=== PATIENT | male | born 1965 | race Caucasian/White ===

== ENCOUNTER 2022-10-14 14:49 | Outpatient (OUT) | payer BC, SELFPAY ==
[2022-10-14 15:30] LABS: Basophils Absolute Auto 0.1 10^3/uL (0.0-0.1); Basophils Percent Auto 0.7 % (0.2-2.0); Eosinophils Absolute Auto 0.2 10^3/uL (0.0-0.7); Eosinophils Percent Auto 2.5 % (0.9-7.0); Hematocrit 44.9 % (42.0-54.0); Hemoglobin 15.1 g/dL (14.0-18.0); Immature Granulocytes Abs Auto 0.06 10^3/uL (0.00-0.03); Immature Granulocytes Pct Auto 0.7 % (0.0-0.5); Lymphocytes Absolute Auto 2.4 10^3/uL (1.2-3.8); Lymphocytes Percent Auto 28.3 % (20.5-60.0); Mean Corpuscular HGB Conc 33.6 g/dL (29.9-35.2); Mean Corpuscular Hemoglobin 31.3 pg (25.9-34.0); Mean Platelet Volume 10.1 fL (9.5-13.5); Monocytes Absolute Auto 1.1 10^3/uL (0.3-0.8); Monocytes Percent Auto 12.3 % (1.7-12.0); Neutrophils Absolute Auto 4.8 10^3/uL (1.4-6.5); Neutrophils Percent Auto 55.5 % (43.0-75.0); Platelet Count 246 10^3/uL (150-450); Red Blood Count 4.83 10^6/uL (4.70-6.10); Red Cell Distribution Width 12.1 % (11.0-15.0); White Blood Count 8.6 10^3/uL (4.0-11.0)
[2022-10-14 15:42] LABS: Estimated Average Glucose 120 mg/dL; Glycohemoglobin A1C 5.8 % (4.5-6.2)
[2022-10-14 16:20] LABS: Alanine Aminotransferase 30 U/L (16-63); Albumin Globulin Ratio 0.9; Albumin Level 3.7 g/dL (3.4-5.0); Alkaline Phosphatase 66 U/L (46-116); Anion Gap 13.9; Aspartate Amino Transferase 14 U/L (15-37); BUN Creatinine Ratio 11.8; Bilirubin Total 0.6 mg/dL (0.2-1.0); Calcium 9.1 mg/dL (8.5-10.1); Carbon Dioxide 29.8 mmol/L (21.0-32.0); Chloride 103 mmol/L (98-107); Chol HDL Ratio 2.2; Cholesterol 162 mg/dL (<=200); Estimated GFR (African America >60 (>=60); Estimated GFR (Non-African Ame >60 (>=60); Globulin 4.1 g/dL; Glucose 93 mg/dL (74-106); HDL Cholesterol 75 mg/dL (40-60); Potassium 4.7 mmol/L (3.5-5.1); Sodium 142 mmol/L (136-145); Total Protein 7.8 g/dL (6.4-8.2); Triglycerides 72 mg/dL (<=150); VLDL CHOLESTEROL 14.4 mg/dL
[2022-10-22 06:09] LABS: Free Testosterone(Direct) 5.1 pg/mL (7.2-24.0); Testosterone 301 ng/dL (264-916)
== END 2022-10-14 14:50 | disposition home or self-care (01) ==
LOC: LAB 14:54
PROVIDERS: PCP Internal Medicine; Visit Provider Internal Medicine
DX: N52.9 Male erectile dysfunction, unspecified (principal); I10 Essential (primary) hypertension; Z13.220 Encounter for screening for lipoid disorders; Z13.1 Encounter for screening for diabetes mellitus
CPT/HCPCS: 36415; 80053; 80061; 83036; 84402; 84403; 85025

== ENCOUNTER 2022-11-10 14:29 | Outpatient (OUT) | payer BC, SELFPAY ==
[2022-11-10 15:19] LABS: Thyroid Stimulating Hormone 1.028 uIU/mL (0.358-3.740)
[2022-11-11 04:07] LABS: FSH 20.7 mIU/mL (1.5-12.4); Luteinizing Hormone(LH) 16.7 mIU/mL (1.7-8.6); Prolactin 14.6 ng/mL (4.0-15.2)
[2022-11-17 00:06] LABS: Free Testosterone(Direct) 4.9 pg/mL (7.2-24.0); Testosterone 273 ng/dL (264-916)
== END 2022-11-10 14:30 | disposition home or self-care (01) ==
LOC: LAB 14:30
PROVIDERS: PCP Internal Medicine; Visit Provider Internal Medicine
DX: E66.9 Obesity, unspecified (principal); N52.9 Male erectile dysfunction, unspecified; R79.89 Other specified abnormal findings of blood chemistry
CPT/HCPCS: 36415; 83001; 83002; 84146; 84402; 84403; 84443

== ENCOUNTER 2023-04-18 14:30 | Outpatient (OUT) | payer BC, SELFPAY ==
[2023-04-18 15:15] LABS: Creatinine Urine Random 128.26 mg/dL (20.00-300.00); Protein Creatinine Ratio Urine 0.08; Total Protein Urine Random 9.8 mg/dL (<=11.9)
[2023-04-18 15:38] LABS: Basophils Absolute Auto 0.1 10^3/uL (0.0-0.1); Basophils Percent Auto 0.8 % (0.2-2.0); Eosinophils Absolute Auto 0.2 10^3/uL (0.0-0.7); Eosinophils Percent Auto 2.4 % (0.9-7.0); Hematocrit 46.8 % (42.0-54.0); Hemoglobin 15.2 g/dL (14.0-18.0); Immature Granulocytes Abs Auto 0.06 10^3/uL (0.00-0.03); Immature Granulocytes Pct Auto 0.7 % (0.0-0.5); Lymphocytes Absolute Auto 2.6 10^3/uL (1.2-3.8); Mean Corpuscular HGB Conc 32.5 g/dL (29.9-35.2); Mean Corpuscular Hemoglobin 31.2 pg (25.9-34.0); Mean Corpuscular Volume 96.1 fL (80.0-94.0); Mean Platelet Volume 10.6 fL (9.5-13.5); Monocytes Absolute Auto 1.1 10^3/uL (0.3-0.8); Monocytes Percent Auto 12.5 % (1.7-12.0); Neutrophils Absolute Auto 4.9 10^3/uL (1.4-6.5); Neutrophils Percent Auto 54.6 % (43.0-75.0); Platelet Count 232 10^3/uL (150-450); Red Blood Count 4.87 10^6/uL (4.70-6.10); White Blood Count 8.9 10^3/uL (4.0-11.0)
[2023-04-18 15:59] LABS: Alanine Aminotransferase 23 U/L (16-63); Albumin Globulin Ratio 0.8; Albumin Level 3.3 g/dL (3.4-5.0); Alkaline Phosphatase 68 U/L (46-116); Anion Gap 12.6; Aspartate Amino Transferase 14 U/L (15-37); BUN Creatinine Ratio 10.8; Bilirubin Total 0.7 mg/dL (0.2-1.0); Calcium 8.9 mg/dL (8.5-10.1); Carbon Dioxide 26.5 mmol/L (21.0-32.0); Chloride 102 mmol/L (98-107); Estimated GFR (African America >60 (>=60); Estimated GFR (Non-African Ame >60 (>=60); Globulin 4.2 g/dL; Glucose 95 mg/dL (74-106); Potassium 4.1 mmol/L (3.5-5.1); Sodium 137 mmol/L (136-145); Total Protein 7.5 g/dL (6.4-8.2)
== END 2023-04-18 14:31 | disposition home or self-care (01) ==
LOC: LAB 14:31
PROVIDERS: PCP Internal Medicine; Visit Provider Internal Medicine
DX: R09.89 Other specified symptoms and signs involving the circulatory and respiratory systems (principal); I10 Essential (primary) hypertension; E29.1 Testicular hypofunction; R60.0 Localized edema
CPT/HCPCS: 36415; 80053; 82570; 83880; 84156; 85025

== ENCOUNTER 2023-05-04 13:55 | Outpatient (OUT) | payer BC, SELFPAY ==
--- NOTE | 2023-05-04 14:00 | CA_ITS ---
Patient Name: JOSE RODRIGUEZ MR#: [id number] : 1965 Exam Date: 05/04/2023 Ordering Doctor: Shaikh Sai Ang . ECHOCARDIOGRAM REPORT PROCEDURE: CA ECHO DOPPLER COMPLETE INDICATIONS: Shortness of breath, lower extremity edema, hypertension, smoker COMPARISON: None. DESCRIPTION: COMPLETE ECHOCARDIOGRAM Real-time transthoracic echocardiography with 2D, M-mode, spectral and color flow Doppler performed. QUALITY: Technical quality was good. 69 , 270 , BSA 2.35, BP 168/82 LEFT VENTRICLE: Normal chamber size. Thickened septal wall. LV EF: Global left ventricular systolic function is normal; visually estimated ejection fraction is 55-60%. Unable to assess regional wall motion abnormalities. DIASTOLIC: Normal diastolic function. ATRIAL SEPTUM: Inadequately seen. LEFT ATRIUM: Normal chamber size. RIGHT ATRIUM: Normal chamber size. RIGHT VENTRICLE: Normal chamber size. Normal right ventricular systolic function. TRICUSPID VALVE: Normal mobility and thickness. No stenosis with trivial regurgitation. No evidence of pulmonary hypertension. RVSP 33 mmHg MITRAL VALVE: Normal mobility and thickness. No evidence of mitral valve stenosis. Mild mitral annular calcification. Trivial mitral regurgitation. AORTIC VALVE: Normal trileaflet appearance. No visible sclerosis. Normal leaflet mobility. No evidence of aortic valve stenosis. No aortic regurgitation. AORTIC ROOT: Normal diameter and appearance. PULMONIC VALVE: Normal thickness and mobility. No stenosis. No regurgitation. PERICARDIUM: Anterior free space; trivial effusion versus fat pad. IVC: Collapses with inspirations. IVC is normal in size. CONCLUSION: 1. Global left ventricular systolic function is normal; visually estimated ejection fraction is 55-60% 2. Normal right ventricular size and systolic function 3. Normal diastolic function 4. No significant valvular abnormalities 5. Anterior free space; trivial effusion versus Adult Echocardiography Procedure Report Left Ventricle LVEDD (3.7 - 5.6 cm): 4.34 cm LVESD (2.2 - 4.0 cm): 3.55 cm LVIVS thickness (0.6 - 1.2 cm): 1.24 cm LVPW thickness (0.5 - 1.0 cm): 0.96 cm E - e': 7.17 LVOT Max Gradient: 2.53 mm[Hg] LVOT Area (cm2): 0.80 m/s Peak Velocity (LVOT): 0.80 m/s Mean Velocity (LVOT): 0.60 m/s LVOT Diameter 2.17 cm Left Atrium LA Volume Index (2D A2C): 28.63 ml/m2 Left Atrium Systolic Dimension: 3.52 cm Mitral Valve MV E to A Ratio: 1.04 Mitral Valve A-Wave Peak Velocity: 0.83 m/s Mitral Valve E-Wave Peak Velocity: 0.86 m/s Right Ventricle Aorta AO Root Diam: 3.60 cm Aortic Valve AoV Area (Peak Rodger): 2.43 cm2, 2.43 cm2 AoV Area (VTI): 2.96 cm2, 2.96 cm2 Peak Velocity(Antegrade Flow): 1.20 m/s Peak Gradient(Antegrade Flow): 5.78 mm[Hg] Mean Velocity(Antegrade Flow): 0.85 m/s Mean Gradient(Antegrade Flow): 3.23 mm[Hg] Velocity Time Integral: 25.58 cm Tricuspid Valve Peak Velocity (Regurgitant Flow): 2.75 m/s Pulmonic Valve Mean Gradient: 3.13 mm[Hg], 2.46 mm[Hg] Mean Velocity: 0.84 m/s, 0.74 m/s Peak Velocity: 1.23 m/s Peak Gradient: 6.10 mm[Hg], 4.76 mm[Hg], 4.09 mm[Hg] Right Atrium Right Atrium Systolic Pressure: 53.92 ml, 53.92 ml Dictated by: Lior Castillo M.D. on 05/04/2023 at 16:08 Approved by: Lior Castillo M.D. on 05/04/2023 at 16:11
--- OUTSIDE RECORDS SUMMARY | 2023-05-04 15:12 | XMS_ITS | CCD ---
Author Organization [facility] Care Team Providers Care Transportation Security Officer Name Role Phone ADRIAN CRENSHAW Unavailable Unavailable GRECIA, DR AMANDA Ayoub Consulting Unavailable TIFF, DR MAIA Whittington Admitting Unavailable SCOTT, DR SANTIAGO Primary Care Unavailable TIFF, DR MAIA Whittington Attending Unavailable TIFF, DR MAIA Whittington Consulting Unavailable Lukasz, John Consulting Unavailable SCOTT, DR SANTIAGO Attending Unavailable SCOTT, DR SANTIAGO Consulting Unavailable SCOTT, DR SANTIAGO Primary Care Unavailable SCOTT, DR SANTIAGO Admitting Unavailable ZIEBER, DR CHERIE Ayoub Consulting Unavailable SCOTT, DR SANTIAGO Consulting Unavailable SCOTT, DR SANTIAGO Primary Care Unavailable SCOTT, DR SANTIAGO Admitting Unavailable HOUSE, DR SANTIAGO Attending Unavailable GRECHOBINNA, JOHANN JOVEL Consulting Unavailable PAY, DR JOHANSEN Admitting Unavailable HOUSE, DR SANTIAGO Primary Care Unavailable PAY, DR JOHANSEN Attending Unavailable AHMED, GINNY Consulting Unavailable DO Elie Thompson Attending Provider [phone] DO William Warner Primary Care Provider [phone] William Wanrer Primary Care Unavailable Elie Thompson Attending Unavailable Elie Thompson Admitting Unavailable Elie Thompson Admitting Unavailable Elie Thompson Attending Unavailable Chavez, William Primary Care Unavailable Elie Thompson Admitting Unavailable Elie Thompson Attending Unavailable Chavez, William Primary Care Unavailable SHAIKH SILVA Attending Unavailable SHAIKH SILVA Attending Unavailable SHAIKH SILVA Attending Unavailable Medications Current Medications Medication Drug Class(es) Dates Sig (Normalized) Sig (Original) hydroCHLOROthiazide 25 mg / lisinopril 20 mg oral tablet (2 sources) Thiazide Diuretic, Angiotensin Converting Enzyme Inhibitor Start: 12-10-2021 take 1 tablet by mouth once daily Lisinopril-Hydr ochlorothiazide Active 1 TAB PO Daily December 09, 2021 11:00pm traMADol hydrochloride 50 mg oral tablet (1 source) Opioid Agonist Start: 12-20-2021 take 50 mg by mouth every six hours Tramadol Active 50 MG PO Q6H 30 7 December 20, 2021 12:00am Problems Active Problems Problem Classification Problem Date Documented Da te Episodic/Chronic Abdominal hernia (2 sources) Umbilical hernia; Translations: [Umbilical hernia without obstruction or gangrene] Onset: 12-20-2021 12-20-2021 Episodic Abdominal pain (4 sources) Unspecified abdominal pain; Translations: [UNSPECIFIED ABDOMINAL PAIN] Onset: 10-20-2020 Episodic Alcohol-related disorders (1 source) Alcohol abuse, uncomplicated; Translations: [ALCOHOL ABUSE UNCOMPLICATED] Onset: 11-04-2020 Chronic Essential hypertension (5 sources) Essential (primary) hypertension; Translations: [ESSENTIAL PRIMARY HYPERTENSION] Onset: 01-21-2020 Chronic Other aftercare (1 source) Other watermelon harvesting supervisor (current) drug therapy; Translations: [OTH ASSISTED CURRENT DRUG THERAPY] Onset: 11-04-2020 Episodic Other gastrointestinal disorders (1 source) Constipation, unspecified; Translations: [CONSTIPATION UNSPECIFIED] Onset: 11-04-2020 Episodic Other nutritional; endocrine; and metabolic disorders (1 source) Obesity, unspecified; Translations: [OBESITY UNSPECIFIED] Onset: 11-04-2020 Chronic Other nutritional; endocrine; and metabolic disorders (1 source) Body mass index (BMI) 37.0-37.9, adult; Translations: [BODY MASS INDEX BMI 37.0-37.9 ADULT] Onset: 11-04-2020 Chronic Pancreatic disorders (not diabetes) (4 sources) Other chronic pancreatitis; Translations: [OTHER CHRONIC PANCREATITIS] Onset: 11-27-2020 Chronic Pancreatic disorders (not diabetes) (2 sources) Alcohol induced acute pancreatitis without necrosis or infection; Translations: [Acute pancreatitis without necrosis or infection, unspecified] Onset: 10-20-2020 Episodic Substance-related disorders (1 source) Nicotine dependence, cigarettes, uncomplicated; Translations: [NICOTINE DEPEND CIGARETTES UNCOMP] Onset: 11-04-2020 Chronic Unclassified (1 source) OLIGOSPERMIA / OLIGOSPERMIA() Onset: 04-24-2017 Unclassified (1 source) CONTACT W/AND (SUSP) EXPOS COVID-19; Translations: [CONTACT W/AND (SUSP) EXPOS COVID-19] Onset: 11-04-2020 Unclassified (1 source) Encounter for preprocedural laboratory examination; Translations: [Encounter for preprocedural laboratory examination] Onset: 12-16-2021 Past or Other Problems Problem Classification Problem Date Documented Da joan Episodic/Chronic Other male genital disorders (1 source) Oligospermia; Translations: [OLIGOSPERMIA] Onset: 04-24-2017 Episodic Results Test Name Value Interpretation Reference Range Facility [facility] 12-20-2021 L - -------- Specimen: [id number] Received: 12/20/21 Status: NEHA Holbrook Num: [id number] Spec Type: Surgical Subm Dr: Elie Thompson DO Tissues: A Hernia Sac (HERNIA CONTENTS) Procedures: Gustavo BARRON/Medardo L2 -------- Age/ Patient Sex Location Account Attending Physician -------- Yariel Molina 56/M [place] [id number] Elie Thompson DO -------- SPEC NUM: [id number] RECD: 12/20/21 STATUS: NEHA AMY NUM: [id number] KERRY: 12/20/21- [facility] DR: Elie Thompson DO ENTERED: 12/20/[address]: SPEC TYPE: Surgical DEPT: S ORDERED: HE, Gross/Micro L2 ORDERED: HE, Gross/Micro L2 Pathological Diagnosis Umbilical hernia, repair: Benign fibroadipose tissue. Clinical Information Umbilical hernia Gross Description Received in formalin labeled with the patient's name, number and hernia contents is a 5.0 x 4.8 x 2.0 cm aggregate of yellow-cassidy, lobular and cassidy-pink, fibromembranous tissue. The cut surface of the yellow, lobular tissue is yellow-cassidy, lobular.. Label Printer sections are submitted in one cassette labeled A1. Microscopic Description One glass slide with H E stained material has been examined. The microscopic findings support the above pathologic diagnosis. CPT Codes 28132 -------- -------- Specimen: [id number] Received: 12/20/21 Status: NEHA Holbrook Num: [id number] Spec Type: Surgical Subm Dr: Elie Thompson,DO Tissues: A Hernia Sac (HERNIA CONTENTS) Procedures: HE, Gross/Micro L2 -------- Patient: Yariel Molina [id number] (Continued) -------- Signed (signature on file) Ursula Vicente MD 12/21/21 1416 [facility] COVID-19 Antigenon 2 COVID-19 Antigen Healthcare Worker?: N Reference Range: Negative Negative results, from patients with symptom onset beyond five days, should be treated as presumptive and confirmation with a molecular assay, if necessary, for patient management, may be performed. Negative results do not rule out COVID-19 and should not be used as the sole basis for treatment or patient management decisions, including infection control decisions. Negative results should be considered in the context of a patient's recent exposures, history and the presence of clinical signs and symptoms consistent with COVID-19. The Valeria SARS Antigen LONG does not differentiate between SARS-CoV and SARS-CoV-2. This test was developed and its performance characteristic determined by [employer] and validated at [facility]. This test has not been FDA cleared or approved. This test has been authorized by FDA under an Emergency Use Authorization (EUA). This test has been validated in accordance with the FDA's Guidance Document (Policy for Diagnostics Testing in Laboratories Certified to Perform High Complexity Testing under CLIA prior to Emergency Use Authorization for Coronavirus Disease-2019 during the Public Health Emergency) issued on May 09, 2019. This test is only authorized for the duration of time the declaration that circumstances exist justifying the authorization of the emergency use of in vitro diagnostic tests for detection of SARS-CoV-2 virus and/or diagnosis of COVID-19 infection under section 564(b)(1) of the Act, 21 U.S.C. 360bbb-3(b)(1), unless the authorization is terminated or revoked sooner. SARS-CoV+SARS-CoV-2 (COVID-19) Ag [Presence] in Respiratory specimen by Rapid immunoassay Negative for SARS Antigen by LONG PERFORMED BY: [place] [address] PATHOLOGIST BASEBOARD HEATING INSTALLER WILBER HUNTLEY M.D. Normal [facility] Comment on above: Performed By: #### C OVID-19 VALERIA, SOFIANEG #### [facility] [address] [place] [address] COVID-19 SOFIAOrdered By: Johann Thompson on 12-16-2021 SARS-CoV+SARS-CoV-2 (COVID-19) Ag IA.rapid Ql (Resp) Negative Negative [facility] Comment on above: This is a duplicate Valeria SARS Antigen (LONG) result to be used for statistical tracking purpose only. No Panel InformationOrdered By: Elie Thompson on 12-16-2021 SARS Antigen (LFIA) [facility] Valeria Ag Negativeon 12-17-19 22 Valeria Ag Negative Negative Normal Negative [facility] Comment on above: Result Comment: This is a duplicate Valeria SARS Antigen (LONG) result to be used for statistical tracking purpose only. PERFORMED BY: [place] [address] PATHOLOGIST BASEBOARD HEATING INSTALLER WILBER HUNTLEY M.D. Performed By: #### C OVID-19 VALERIA, SOFIANEG #### [facility] [address] [place] [id number] [facility] Basic Metabolic Panelon 11-0 Anion gap [Moles/Vol] 15.3 mmol/L High 6.0-15.0 [facility] Comment on above: Performed By: #### B MP #### [facility] [address] Calcium [Mass/Vol] 9.3 mg/dL Normal 8.2-10.2 [facility] Comment on above: Result Comment: PERF ORMED BY: [place] [address] PATHOLOGIST BASEBOARD HEATING INSTALLER WILBER HUNTLEY M.D. Performed By: #### B MP #### [address] Chloride [Moles/Vol] 99 mmol/L Normal 95-114 [facility] Comment on above: Performed By: #### B MP #### [address] CO2 [Moles/Vol] 23.8 mmol/L Normal 22.0-30.0 [facility] Comment on above: Performed By: #### B MP #### [address] Creatinine [Mass/Vol] 0.80 mg/dL Normal 0.64-1.27 [facility] Comment on above: Performed By: #### B MP #### [address] Estimated GFR ( Ellie > 60 [facility] Comment on above: Result Comment: GFR estimated reference range: According to KDOQI guidelines, <60 ml/min/1.73m2 is sufficient to diagnose a patient with chronic kidney disease. Performed By: #### B MP #### [facility] [address] [place] [address] [place] Estimated GFR (Non- Am > 60 [facility] Comment on above: Performed By: #### B MP #### [facility] [address] Glucose [Mass/Vol] 95 mg/dL Normal 70-100 [facility] Comment on above: Result Comment: [place] Glucose Reference Range is dependent on time and content of last meal. Glucose of more than 200 mg/dL in a nonstressed, ambulatory subject supports the diagnosis of Diabetes Mellitus. ADA recommended reference range Performed By: #### B MP #### [facility] [address] Potassium [Moles/Vol] 4.1 mmol/L Normal 3.5-5.1 [facility] Comment on above: Performed By: #### B MP #### [facility] [address] Sodium [Moles/Vol] 134 mmol/L Low 136-146 [facility] Comment on above: Performed By: #### B MP #### [address] Urea nitrogen [Mass/Vol] 15 mg/dL Normal 9-23 [facility] Comment on above: Performed By: #### B MP #### [address] Basophils Auto (Bld) [#/Vol] Ordered By: Elie Thompson on 12-10-2021 Basophils (Bld) [#/Vol] 0.1 10*3/uL 0.0-0.2 [facility] Basophils/100 WBC Auto (Bld) Ordered By: Elie Thompson on 12-10-2021 Basophils/100 WBC (Bld) 1.0 % . [facility] Complete Blood Count Auto Di ffon 12-10-2021 Basophils (Bld) [#/Vol] 0.1 10*3/uL Normal 0.0-0.2 [facility] Comment on above: Result Comment: PERF ORMED BY: [place] [address] PATHOLOGIST BASEBOARD HEATING INSTALLER WILBER HUNTLEY M.D. Performed By: #### C BC #### [address] Basophils/100 WBC (Bld) 1.0 % Normal . [facility] Comment on above: Performed By: #### C BC #### [address] Eosinophils (Bld) [#/Vol] 0.2 10*3/uL Normal 0.0-0.45 [facility] Comment on above: Performed By: #### C BC #### [address] Eosinophils/100 WBC (Bld) 2.2 % Normal . [facility] Comment on above: Performed By: #### C BC #### [address] Erythrocyte distribution width (RBC) [Ratio] 12.6 % Normal 12.0-14.8 [facility] Comment on above: Performed By: #### C BC #### [address] Hematocrit (Bld) [Volume fraction] 44.5 % Normal 38.8-50.0 [facility] Comment on above: Performed By: #### C BC #### [address] Hemoglobin (Bld) [Mass/Vol] 15.2 g/dL Normal 13.0-17.0 [facility] Comment on above: Performed By: #### C BC #### [address] Lymphocytes (Bld) [#/Vol] 3.0 10*3/uL Normal 1.00-4.8 [facility] Comment on above: Performed By: #### C BC #### [address] Lymphocytes/100 WBC (Bld) 29.3 % Normal . [facility] Comment on above: Performed By: #### C BC #### [address] MCH (RBC) [Entitic mass] 31.4 pg Normal 27.5-35.2 [facility] Comment on above: Performed By: #### C BC #### [address] MCV (RBC) [Entitic vol] 92.0 fL Normal 83.5-101 [facility] Comment on above: Performed By: #### C BC #### [facility] [address] Mean Corpuscular HGB Conc 34.1 g/dL Normal 32.5-35.6 [facility] Comment on above: Performed By: #### C BC #### [facility] [address] [place] [address] [place] Monocytes (Bld) [#/Vol] 1.1 10*3/uL High 0.0-0.8 [facility] Comment on above: Performed By: #### C BC #### [facility] [address] [place] [address] [place] Monocytes/100 WBC (Bld) 10.6 % Normal . [facility] Comment on above: Performed By: #### C BC #### [facility] [address] Neutrophils (Bld) [#/Vol] 5.7 10*3/uL Normal 1.8-7.7 [facility] Comment on above: Performed By: #### C BC #### [facility] [address] [place] [address] [place] Neutrophils/100 WBC (Bld) 56.9 % Normal . [facility] Comment on above: Performed By: #### C BC #### [facility] [address] [place] [address] [place] Nucleated RBC/100 WBC (Bld) [Ratio] 0.0 % Normal 0-0.5 [facility] Comment on above: Performed By: #### C BC #### [facility] [address] [place] [address] [place] Platelet mean volume (Bld) [Entitic vol] 8.7 fL Normal 6.6-10.1 [facility] Comment on above: Performed By: #### C BC #### [facility] [address] [place] [address] [place] Platelets (Bld) [#/Vol] 265 10*3/uL Normal 150-450 [facility] Comment on above: Performed By: #### C BC #### [facility] [address] RBC (Bld) [#/Vol] 4.83 10*6/uL Normal 3.90-5.60 [facility] Comment on above: Performed By: #### C BC #### [facility] [address] WBC (Bld) [#/Vol] 10.1 10*3/uL Normal 4.5-11.0 [facility] Comment on above: Performed By: #### C BC #### [facility] [address] Creatinine and Glomerular fi ltration rate.predicted panel (S/P/Bld)Ordered By: Elie Thompson on 12-10-2021 Creatinine [Mass/Vol] 0.80 mg/dL 0.64-1.27 [facility] ECG 12 lead ECGon 12-10-2021 ECG 12 lead ECG [facility] Main [place] [address] [place] [address] Electrocardiograph Report Signed Patient: Yariel Molina MR#: [id number] : 1965 Acct:[id number] Age/Sex: 56 / M ADM Date: 12/10/21 Loc: Room: Type: [facility] Attending Dr: Elie Thompson DO Ordering Provider: Elie Thompson DO Date of Service: 12/10/2105/28/833 ECG/ECG 12 lead ECG: OR 12/20 Copies to: Test Reason : Blood Pressure : / mmHG Vent. Rate : 089 BPM Atrial Rate : 089 BPM P-R Int : 162 ms QRS Dur : 086 ms QT Int : 354 ms P-R-T Axes : 026 022 016 degrees QTc Int : 430 ms Normal sinus rhythm Normal ECG No previous ECGs available Confirmed by NASH SANDOVAL FACMARKOS Christopher ([id number]) on 12/10/2021 2:47:23 PM Referred By: CORONA Electronically Signed By:MARKOS BASS MD FACC Transcribed By: MUS Signed By Markos Bass MD, FACC 12/10/21 1447 Normal [facility] Eosinophils Auto (Bld) [#/Vo l]Ordered By: Elie Thompson on 12-10-2021 Eosinophils (Bld) [#/Vol] 0.2 10*3/uL 0.0-0.45 [facility] Eosinophils/100 WBC Auto (Bl d)Ordered By: Elie Thompson on 12-10-2021 Eosinophils/100 WBC (Bld) 2.2 % . [facility] Erythrocyte distribution wid th Auto (RBC) [Ratio]Ordered By: Elie Thompson on 12-10-2021 Erythrocyte distribution width (RBC) [Ratio] 12.6 % 12.0-14.8 [facility] Estimated glomerular filtrat ion rate (GFR) non- AmericanOrdered By: Elie Thompson on 12-10-2021 GFR/1.73 sq M.predicted among non-blacks MDRD (S/P/Bld) [Vol rate/Area] > 60 mL/Min [facility] Hematocrit Auto (Bld) [Volum e fraction]Ordered By: Elie Thompson on 12-10-2021 Hematocrit (Bld) [Volume fraction] 44.5 % 38.8-50.0 [facility] Hemoglobin [Mass/volume] in BloodOrdered By: Elie Thompson on 12-10-2021 Hemoglobin (Bld) [Mass/Vol] 15.2 g/dL 13.0-17.0 [facility] Laboratory - Hematology and Cell countsOrdered By: Elie Thompson on 12-10-2021 Nucleated RBC/100 WBC (Bld) [Ratio] 0.0 % 0-0.5 [facility] Leukocytes [#/volume] in Blo od by Automated countOrdered By: Elie Thompson on 12-10-2021 WBC (Bld) [#/Vol] 10.1 10*3/uL 4.5-11.0 [facility] Lymphocytes Auto (Bld) [#/Vo l]Ordered By: lEie Thompson on 12-10-2021 Lymphocytes (Bld) [#/Vol] 3.0 10*3/uL 1.00-4.8 [facility] Lymphocytes/100 WBC Auto (Bl d)Ordered By: Elie Thompson on 12-10-2021 Lymphocytes/100 WBC (Bld) 29.3 % . [facility] MCH Auto (RBC) [Entitic mass ]Ordered By: Elie Thompson on 12-10-2021 MCH (RBC) [Entitic mass] 31.4 pg 27.5-35.2 [facility] MCHC Auto (RBC) [Mass/Vol]Or dered By: Elie Thompson on 12-10-2021 MCHC (RBC) [Mass/Vol] 34.1 g/dL 32.5-35.6 [facility] MCV Auto (RBC) [Entitic vol] Ordered By: Elie Thompson on 12-10-2021 MCV (RBC) [Entitic vol] 92.0 fL 83.5-101 [facility] Monocytes Auto (Bld) [#/Vol] Ordered By: Elie Thompson on 12-10-2021 Monocytes (Bld) [#/Vol] 1.1 10*3/uL 0.0-0.8 [facility] Monocytes/100 WBC Auto (Bld) Ordered By: Elie Thompson on 12-10-2021 Monocytes/100 WBC (Bld) 10.6 % . [facility] Neutrophils Auto (Bld) [#/Vo l]Ordered By: Elie Thompson on 12-10-2021 Neutrophils (Bld) [#/Vol] 5.7 10*3/uL 1.8-7.7 [facility] Neutrophils/100 WBC Auto (Bl d)Ordered By: Elie Thompson on 12-10-2021 Neutrophils/100 WBC (Bld) 56.9 % . [facility] No Panel InformationOrdered By: Elie Thompson on 12-10-2021 Estimated GFR () > 60 mL/Min [facility] Comment on above: GFR estimated refere nce range: According to KDOQI guidelines, <60 ml/min/1.73m2 is sufficient to diagnose a patient with chronic kidney disease. Pharmacy Creatinine Clearance (Chem N/A [facility] Platelet mean volume Auto (B ld) [Entitic vol]Ordered By: Elie Thmopson on 12-10-2021 Platelet mean volume (Bld) [Entitic vol] 8.7 fL 6.6-10.1 [facility] Platelets Auto (Bld) [#/Vol] Ordered By: Elie Thompson on 12-10-2021 Platelets (Bld) [#/Vol] 265 10*3/uL 150-450 [facility] RBC Auto (Bld) [#/Vol]Ordere d By: Elie Thompson on 12-10-2021 RBC (Bld) [#/Vol] 4.83 10*6/uL 3.90-5.60 [facility] Serum or plasma anion gap de terminationOrdered By: Elie Thompson on 12-10-2021 Anion gap [Moles/Vol] 15.3 mmol/L 6.0-15.0 [facility] Serum or plasma calcium lyla urement (mass/volume)Ordered By: Elie Thompson on 12-10-2021 Calcium [Mass/Vol] 9.3 mg/dL 8.2-10.2 [facility] Serum or plasma chloride john surement (moles/volume)Ordered By: Elie Thompson on 12-10-2021 Chloride [Moles/Vol] 99 mmol/L 95-114 [facility] Serum or plasma glucose lyla urement (mass/volume)Ordered By: Elie Thompson on 12-10-2021 Glucose [Mass/Vol] 95 mg/dL 70-100 [facility] Comment on above: ADA recommended refe rence rangeRandom Glucose Reference Range is dependent on time and content of last meal. Glucose of more than 200 mg/dL in a nonstressed, ambulatory subject supports the diagnosis of Diabetes Mellitus. Serum or plasma potassium me asurement (moles/volume)Ordered By: Elie Thompson on 12-10-2021 Potassium [Moles/Vol] 4.1 mmol/L 3.5-5.1 [facility] Serum or plasma sodium measu rement (moles/volume)Ordered By: Elie Thompson on 12-10-2021 Sodium [Moles/Vol] 134 mmol/L 136-146 [facility] Serum or plasma total carbon dioxide measurement (moles/volume)Ordered By: Elie Thompson on 12-10-2021 CO2 [Moles/Vol] 23.8 mmol/L 22.0-30.0 [facility] Serum or plasma urea nitroge n measurement (mass/volume)Ordered By: Elie Thompson on 12-10-2021 Urea nitrogen [Mass/Vol] 15 mg/dL 10-29 [facility] NM HEPATOBILIARY SCAN W EFon 11-27-2020 NM HEPATOBILIARY SCAN W EF EXAMINATION: NM HEPATOBILIARY SCAN W EF HISTORY: Abdominal pain , chronic pancreatitis COMPARISON: No relevant comparison available. TECHNIQUE: Radionuclide hepatobiliary imaging was performed after intravenous injection of 5.0 mCi Tc-99m THERESA derivative with sequential acquisitions every 1 minute for one hour. Hepatobiliary imaging with gallbladder ejection fraction analysis was then performed with sequential imaging every 1 minute for 60 minutes following ingestion of 8 ounces Ensure Plus. FINDINGS: LIVER: Normal, prompt and uniform radiotracer uptake and clearing. BILIARY DUCTS: Normal radioisotopic biliary excretion. GALLBLADDER: Normal with no evidence of cystic duct obstruction. INTESTINE: Normal with no evidence of common biliary ductal obstruction. EJECTION FRACTION: 40 % within 60 minutes. (Normal EF > 38%). OTHER: Negative. IMPRESSION: 1. Normal (but borderline) ejection fraction. Electronically authenticated by: CHERIE RIGGS Date: 2020-11-27 10:46 Normal [facility] AMYLASEon 10-28-2020 Amylase [Catalytic activity/Vol] 42 U/L Normal 31-110 [facility] Comment on above: Performed By: #### C MP, JAMES, LIPA #### [facility] [address] [address] [address] Nathalia Banda CBC AUTO DIFFon 10-28-2020 BASO # 0.1 103/ul Normal 0.0-0.1 [facility] Comment on above: Performed By: #### C BC #### [facility] [address] [address] [address] Nathalia Banda Basophils/100 WBC (Bld) 0.7 % Normal 0.2-2.0 [facility] Comment on above: Performed By: #### C BC #### [facility] [address] [place], [place] [address] Dr. Nathalia Banda EO # 0.4 103/ul Normal 0.0-0.7 [facility] Comment on above: Performed By: #### C BC #### [facility] [address] [address] [address] Nathalia Banda Eosinophils/100 WBC (Bld) 3.6 % Normal 0.9-7.0 [facility] Comment on above: Performed By: #### C BC #### [facility] [address] [place] [address] Dr. Nathalia Banda Erythrocyte distribution width (RBC) [Ratio] 11.3 % Normal 11.0-15.0 [facility] Comment on above: Performed By: #### C BC #### [facility] [address] [place] [address] Dr. Nathalia Banda Hematocrit (Bld) [Volume fraction] 39.0 % Critically low 42.0-54.0 [facility] Comment on above: Performed By: #### C BC #### [place] [facility] [address] [place] [address] Dr. Nathalia Banda Hemoglobin (Bld) [Mass/Vol] 13.3 g/dL Critically low 14.0-18.0 [facility] Comment on above: Performed By: #### C BC #### [facility] [address] [place] [address] Dr. Nathalia Banda IG # 0.07 10e3/ul Critically high 0.00-0.03 [facility] Comment on above: Performed By: #### C BC #### [facility] [address] [place] [address] Dr. Nathalia Banda IG % 0.7 % Critically high 0.0-0.5 [facility] Comment on above: Performed By: #### C BC #### [facility] [address] [place] [address] Dr. Nathalia Banda LYMPH # 2.2 103/ul Normal 1.2-3.8 [facility] Comment on above: Performed By: #### C BC #### [facility] [address] [place] [address] Dr. Nathalia Banda Lymphocytes/100 WBC (Bld) 23.1 % Normal 20.5-60.0 [facility] Comment on above: Performed By: #### C BC #### [facility] [address] [place] [address] Dr. Nathalia Banda MANUAL DIFF REQ NO Normal [facility] Comment on above: Performed By: #### C BC #### [facility] [address] [place] [address] Dr. Nathalia Banda MCH (RBC) [Entitic mass] 30.6 pg Normal 25.9-34.0 [facility] Comment on above: Performed By: #### C BC #### [facility] [address] [place] [address] Dr. Nathalia Banda MCHC (RBC) [Mass/Vol] 34.1 g/dL Normal 29.9-35.2 [facility] Comment on above: Performed By: #### C BC #### [facility] [address] [place] [address] Dr. Nathalia Banda MCV (RBC) [Entitic vol] 89.7 fL Normal 80.0-94.0 [facility] Comment on above: Performed By: #### C BC #### [facility] [address] [place] [address] Dr. Nathalia Banda MONO # 1.2 103/ul Critically high 0.3-0.8 [facility] Comment on above: Performed By: #### C BC #### [facility] [address] [place] [address] Dr. Nathalia Banda Monocytes/100 WBC (Bld) 12.5 % Critically high 1.7-12. 0 [facility] Comment on above: Performed By: #### C BC #### [facility] [address] [place] [address] Dr. Nathalia Banda NEUT # 5.7 103/ul Normal 1.4-6.5 [facility] Comment on above: Performed By: #### C BC #### [facility] [address] [place] [address] Dr. Nathalia Banda Neutrophils/100 WBC (Bld) 59.4 % Normal 43.0-75.0 [facility] Comment on above: Performed By: #### C BC #### [facility] [address] [address] [address] Nathalia Banda Platelet mean volume (Bld) [Entitic vol] 10.2 fL Normal 9.5-13.5 [facility] Comment on above: Performed By: #### C BC #### [facility] [address] [place] [address] Dr. Nathalia Banda PLT 288 103/ul Normal 150-450 [facility] Comment on above: Performed By: #### C BC #### [facility] [address] [place] [address] Dr. Nathalia Banda RBC 4.35 106/ul Critically low 4.70-6.10 [facility] Comment on above: Performed By: #### C BC #### [facility] [address] [place] [address] Dr. Nathalia Banda WBC 9.6 103/ul Normal 4.0-11.0 [facility] Comment on above: Performed By: #### C BC #### [facility] [address] [place] [address] Dr. Nathalia Banda LIPASEon 10-28-2020 Lipase [Catalytic activity/Vol] 356.0 U/L Critically high 23.0-300.0 [facility] Comment on above: Performed By: #### C MP, JAMES, LIPA #### [facility] [address] [place] [address] Dr. Nathalia Banda PROF 14(COMP METB)on 021 Albumin [Mass/Vol] 2.4 g/dL Critically low 3.5-5.0 [facility] Comment on above: Performed By: #### L IPA, CMP #### [facility] [address] [place] [address] Edin Perez Albumin/Globulin [Mass ratio] 0.5 {ratio} Normal [facility] Comment on above: Performed By: #### L IPA, CMP #### [facility] [address] [place] [address] Edin Ana ALP [Catalytic activity/Vol] 71 U/L Normal 38-126 [facility] Comment on above: Performed By: #### L IPA, CMP #### [facility] [address] [place], [place] [id number] Edin Ana ALT [Catalytic activity/Vol] 17 U/L Critically low 21-72 [facility] Comment on above: Performed By: #### L IPA, CMP #### [facility] [address] [id number] Edin Ana Anion gap [Moles/Vol] 12.2 mmol/L Normal [facility] Comment on above: Performed By: #### L IPA, CMP #### [facility] [address] [address] Edin Ana AST [Catalytic activity/Vol] 9 U/L Critically low 17-59 [facility] Comment on above: Performed By: #### L IPA, CMP #### [facility] [address] [address] Edin Ana Bilirubin [Mass/Vol] 0.4 mg/dL Normal 0.2-1.3 [facility] Comment on above: Performed By: #### L IPA, CMP #### [facility] [address] [place], [place] [phone] Edin Ana Calcium [Mass/Vol] 8.7 mg/dL Normal 8.4-10.2 [facility] Comment on above: Performed By: #### L IPA, CMP #### [facility] [address] [place] [address] Edin Ana Chloride [Moles/Vol] 102 mmol/L Normal 98-107 [facility] Comment on above: Performed By: #### L IPA, CMP #### [facility] [address] [id number] Edin Ana CO2 [Moles/Vol] 24.7 mmol/L Normal 22.0-30.[address] [facility] Comment on above: Performed By: #### L IPA, CMP #### [facility] [address] [id number] Edin Ana Creatinine [Mass/Vol] 0.77 mg/dL Normal 0.66-1.25 [facility] Comment on above: Performed By: #### L IPA, CMP #### [facility] [address] [place], [place] [address] Edin Ana EGFR-AF ROMANIAN >60 Normal >=[address] [facility] Comment on above: Performed By: #### L IPA, CMP #### [facility] [address] [id number] Edin Ana EGFR-NON AF ROMANIAN >60 Normal >=60 [facility] Comment on above: Performed By: #### L IPA, CMP #### [facility] [address] [id number] Edin Ana Globulin (S) [Mass/Vol] 4.4 g/dL Normal [facility] Comment on above: Performed By: #### L IPA, CMP #### [facility] [address] [id number] Edin Ana Glucose [Mass/Vol] 94 mg/dL Normal 74-106 [facility] Comment on above: Performed By: #### L IPA, CMP #### [facility] [address] [id number] Edin Ana Potassium [Moles/Vol] 3.9 mmol/L Normal 3.4-5.0 [facility] Comment on above: Performed By: #### L IPA, CMP #### [facility] [address] [id number] Edin Ana Protein [Mass/Vol] 6.8 g/dL Normal 6.1-8.2 [facility] Comment on above: Performed By: #### L IPA, CMP #### [facility] [address] [id number] Edin Ana Sodium [Moles/Vol] 135 mmol/L Critically low 137-145 [facility] Comment on above: Performed By: #### L IPA, CMP #### [facility] [address] [id number] Edin Ana Urea nitrogen [Mass/Vol] 7.0 mg/dL Critically low 9.0-20. 0 [facility] Comment on above: Performed By: #### L IPA, CMP #### [facility] [address] [place] [address] Edin Perez Urea nitrogen/Creatinine [Mass ratio] 9.1 mg/mg Normal [facility] Comment on above: Performed By: #### L IPA, CMP #### [facility] [address] [place] [address] Edin Perez AMYLASEon 10-27-2020 Amylase [Catalytic activity/Vol] 65 U/L Normal 31-110 [facility] Comment on above: Performed By: #### L IPA, CMP #### [facility] [address] [place], [place] [id number] Edin Perez CBC AUTO DIFFon 10-27-2020 BASO # 0.1 103/ul Normal 0.0-0.1 [facility] Comment on above: Performed By: #### C BC #### [facility] [address] [place] [address] Dr. Nathalia Banda Basophils/100 WBC (Bld) 0.7 % Normal 0.2-2.0 [facility] Comment on above: Performed By: #### C BC #### [facility] [address] [place] [address] Dr. Nathalia Banda EO # 0.3 103/ul Normal 0.0-0.7 [facility] Comment on above: Performed By: #### C BC #### [facility] [address] [place] [address] Dr. Nathalia Banda Eosinophils/100 WBC (Bld) 3.2 % Normal 0.9-7.0 [facility] Comment on above: Performed By: #### C BC #### [facility] [address] [place] [address] Dr. Nathalia Banda Erythrocyte distribution width (RBC) [Ratio] 11.4 % Normal 11.0-15.0 [facility] Comment on above: Performed By: #### C BC #### [facility] [address] [place] [address] Dr. Nathalia Banda Hematocrit (Bld) [Volume fraction] 41.0 % Critically low 42.0-54.0 [facility] Comment on above: Performed By: #### C BC #### [facility] [address] [place] [address] Dr. Nathalia Banda Hemoglobin (Bld) [Mass/Vol] 13.7 g/dL Critically low 14.0-18.0 [facility] Comment on above: Performed By: #### C BC #### [facility] [address] [place] [address] Dr. Nathalia Banda IG # 0.07 10e3/ul Critically high 0.00-0.03 [facility] Comment on above: Performed By: #### C BC #### [facility] [address] [place] [address] Dr. Nathalia Banda IG % 0.7 % Critically high 0.0-0.5 [facility] Comment on above: Performed By: #### C BC #### [facility] [address] [place] [address] Dr. Nathalia Banda LYMPH # 2.3 103/ul Normal 1.2-3.8 [facility] Comment on above: Performed By: #### C BC #### [facility] [address] [place] [address] Dr. Nathalia Banda Lymphocytes/100 WBC (Bld) 21.5 % Normal 20.5-60.0 [facility] Comment on above: Performed By: #### C BC #### [facility] [address] [place] [address] Dr. Nathalia Banda MANUAL DIFF REQ NO Normal [facility] Comment on above: Performed By: #### C BC #### [facility] [address] [place] [address] Dr. Nathalia Banda MCH (RBC) [Entitic mass] 30.7 pg Normal 25.9-34.0 [facility] Comment on above: Performed By: #### C BC #### [facility] [address] [place] [address] Dr. Nathalia Banda MCHC (RBC) [Mass/Vol] 33.4 g/dL Normal 29.9-35.2 [facility] Comment on above: Performed By: #### C BC #### [facility] [address] [address] [address] Nathalia Banda MCV (RBC) [Entitic vol] 91.9 fL Normal 80.0-94.0 [facility] Comment on above: Performed By: #### C BC #### [facility] [address] [address] [address] Nathalia Banda MONO # 1.5 103/ul Critically high 0.3-0.8 [facility] Comment on above: Performed By: #### C BC #### [facility] [address] [address] [address] Nathalia Banda Monocytes/100 WBC (Bld) 14.2 % Critically high 1.7-12. 0 [facility] Comment on above: Performed By: #### C BC #### [facility] [address] [address] [address] Nathalia Banda NEUT # 6.4 103/ul Normal 1.4-6.5 [facility] Comment on above: Performed By: #### C BC #### [facility] [address] [address] [address] Nathalia Banda Neutrophils/100 WBC (Bld) 59.7 % Normal 43.0-75.0 [facility] Comment on above: Performed By: #### C BC #### [facility] [address] [address] [address] Nathalia Banda Platelet mean volume (Bld) [Entitic vol] 9.9 fL Normal 9.5-13.5 [facility] Comment on above: Performed By: #### C BC #### [facility] [address] [address] [address] Nathalia Banda PLT 288 103/ul Normal 150-450 [facility] Comment on above: Performed By: #### C BC #### [facility] [address] [address] [address] Nathalia Banda RBC 4.46 106/ul Critically low 4.70-6.10 [facility] Comment on above: Performed By: #### C BC #### [facility] [address] [place] [address] Dr. Nathalia Banda WBC 10.6 103/ul Normal 4.0-11.0 [facility] Comment on above: Performed By: #### C BC #### [facility] [address] [place] [address] Dr. Nathalia Banda LIPASEon 10-27-2020 Lipase [Catalytic activity/Vol] 600.0 U/L Critically high 23.0-300.0 [facility] Comment on above: Performed By: #### L IPA, CMP #### [facility] [address] [place], [place] [phone] Edin Perez PROF 14(COMP METB)on 021 Albumin [Mass/Vol] 2.7 g/dL Critically low 3.5-5.0 [facility] Comment on above: Performed By: #### L IPA, CMP #### [facility] [address] [place], [place] [phone] Edin Perez Albumin/Globulin [Mass ratio] 0.6 {ratio} Normal [facility] Comment on above: Performed By: #### L IPA, CMP #### [facility] [address] [place] [address] Edin Ana ALP [Catalytic activity/Vol] 75 U/L Normal 38-126 [facility] Comment on above: Performed By: #### L IPA, CMP #### [facility] [address] [place] [address] Edin Perez ALT [Catalytic activity/Vol] 20 U/L Critically low 21-72 [facility] Comment on above: Performed By: #### L IPA, CMP #### [facility] [address] [place], [place] [phone] Edin Ana Anion gap [Moles/Vol] 14.4 mmol/L Normal [facility] Comment on above: Performed By: #### L IPA, CMP #### [facility] [address] [place], [place] [phone] Edin Perez AST [Catalytic activity/Vol] 10 U/L Critically low 17-59 [facility] Comment on above: Performed By: #### L IPA, CMP #### [facility] [address] [id number] Edin Ana Bilirubin [Mass/Vol] 0.4 mg/dL Normal 0.2-1.3 [facility] Comment on above: Performed By: #### L IPA, CMP #### [facility] [address] [id number] Edin Ana Calcium [Mass/Vol] 8.9 mg/dL Normal 8.4-10.2 [facility] Comment on above: Performed By: #### L IPA, CMP #### [facility] [address] [id number] Edin Ana Chloride [Moles/Vol] 98 mmol/L Normal 98-107 [facility] Comment on above: Performed By: #### L IPA, CMP #### [facility] [address] [place], [place] [phone] Edin Ana CO2 [Moles/Vol] 23.5 mmol/L Normal 22.0-30.[address] [facility] Comment on above: Performed By: #### L IPA, CMP #### [facility] [address] [place], [place] [phone] Edin Ana Creatinine [Mass/Vol] 0.83 mg/dL Normal 0.66-1.25 [facility] Comment on above: Performed By: #### L IPA, CMP #### [facility] [address] [place], [place] [phone] Edin Ana EGFR-AF ROMANIAN >60 Normal >=60 [facility] Comment on above: Performed By: #### L IPA, CMP #### [facility] [address] [place], [place] [address] Edin Ana EGFR-NON AF ROMANIAN >60 Normal >=60 [facility] Comment on above: Performed By: #### L IPA, CMP #### [facility] [address] [id number] Edin Ana Globulin (S) [Mass/Vol] 4.4 g/dL Normal T [facility] Comment on above: Performed By: #### L IPA, CMP #### [facility] [address] [place], [place] [address] Edin Ana Glucose [Mass/Vol] 90 mg/dL Normal 74-106 [facility] Comment on above: Performed By: #### L IPA, CMP #### [facility] [address] [place], [place] [address] Edin Ana Potassium [Moles/Vol] 3.9 mmol/L Normal 3.4-5.0 [facility] Comment on above: Performed By: #### L IPA, CMP #### [facility] [address] [id number] Edin Ana Protein [Mass/Vol] 7.1 g/dL Normal 6.1-8.2 [facility] Comment on above: Performed By: #### L IPA, CMP #### [facility] [address] [id number] Edin Ana Sodium [Moles/Vol] 132 mmol/L Critically low 137-145 [facility] Comment on above: Performed By: #### L IPA, CMP #### [facility] [address] [id number] Edin Ana Urea nitrogen [Mass/Vol] 10.0 mg/dL Normal 9.0-20.0 [facility] Comment on above: Performed By: #### L IPA, CMP #### [facility] [address] [id number] Edin Ana Urea nitrogen/Creatinine [Mass ratio] 12.0 mg/mg Normal [facility] Comment on above: Performed By: #### L IPA, CMP #### [facility] [address] [place], [place] [address] Edin Ana AMYLASEon 10-26-2020 Amylase [Catalytic activity/Vol] 121 U/L Critically high 31-110 [facility] Comment on above: Performed By: #### L IPA, CMP #### [facility] [address] [place], [place] [address] Edin Ana Amylase [Catalytic activity/Vol] 160 U/L Critically high 31-110 [facility] Comment on above: Performed By: #### C BC #### [facility] [address] [place] [address] Dr. Nathalia Banda ASYMPTOMATIC COVID-19 ANTIGE Non 10-26-2020 EUA Statement SEE BELOW Normal [facility] Comment on above: Result Comment: This test has not been FDA cleared or approved, but has been authorized by the FDA under an Emergency Use Authorization (EUA) for use by authorized laboratories certified under CLIA that meet the requirements to perform moderate or high complexity testing. This test has been authorized only for the detection of proteins from SARS-CoV-2, not for any other viruses or pathogens. The emergency use of this test is authorized for the duration of the declaration that circumstances exist justifying the authorization of emergency use of in vitro diagnostic tests for detection and/or diagnosis of Covid-19 under section 564(b)(1) of the Act, 21 U.S.C. 360bbb-3(b)(1), unless the declaration is terminated or authorization is revoked sooner. Performed By: #### C BC #### [facility] [address] [place] [address] Dr. Nathalia Banda SARS-CoV-2 (COVID-19) RNA ZOHAIB+probe Ql (Unsp spec) Negative Normal NEGATIVE [facility] Comment on above: Result Comment: Nega tive results are presumptive. They do not preclude infection and should not be used as the sole basis for treatment decisions. Additional confirmatory testing by a molecular method should be considered. Performed By: #### C BC #### [facility] [address] [place] [address] Dr. Nathalia Banda CBC AUTO DIFFon 10-26-2020 BASO # 0.1 103/ul Normal 0.0-0.1 [facility] Comment on above: Performed By: #### C BC #### [facility] [address] [place] [address] Dr. Nathalia Banda Basophils/100 WBC (Bld) 0.4 % Normal 0.2-2.0 [facility] Comment on above: Performed By: #### C BC #### [facility] [address] [place] [address] Dr. Ntahalia Banda EO # 0.3 103/ul Normal 0.0-0.7 [facility] Comment on above: Performed By: #### C BC #### [facility] [address] [place] [address] Dr. Nathalia Banda Eosinophils/100 WBC (Bld) 2.4 % Normal 0.9-7.0 [facility] Comment on above: Performed By: #### C BC #### [facility] [address] [place] [address] Dr. Nathalia Banda Erythrocyte distribution width (RBC) [Ratio] 11.5 % Normal 11.0-15.0 [facility] Comment on above: Performed By: #### C BC #### [facility] [address] [place] [address] Dr. Nathalia Banda Hematocrit (Bld) [Volume fraction] 41.5 % Critically low 42.0-54.0 [facility] Comment on above: Performed By: #### C BC #### [facility] [address] [place] [address] Dr. Nathalia Banda Hemoglobin (Bld) [Mass/Vol] 14.2 g/dL Normal 14.0-18.0 [facility] Comment on above: Performed By: #### C BC #### [facility] [address] [place] [address] Dr. Nathalia Banda IG # 0.08 10e3/ul Critically high 0.00-0.03 [facility] Comment on above: Performed By: #### C BC #### [facility] [address] [place] [address] Dr. Nathalia Banda IG % 0.7 % Critically high 0.0-0.5 [facility] Comment on above: Performed By: #### C BC #### [facility] [address] [place] [address] Dr. Nathalia Banda LYMPH # 2.4 103/ul Normal 1.2-3.8 [facility] Comment on above: Performed By: #### C BC #### [facility] [address] [place] [address] Dr. Nathalia Banda Lymphocytes/100 WBC (Bld) 21.0 % Normal 20.5-60.0 [facility] Comment on above: Performed By: #### C BC #### [facility] [address] [place] [address] Dr. Nathalia Banda MANUAL DIFF REQ NO Normal [facility] Comment on above: Performed By: #### C BC #### [facility] [address] [place] [address] Dr. Nathalia Banda MCH (RBC) [Entitic mass] 30.8 pg Normal 25.9-34.0 [facility] Comment on above: Performed By: #### C BC #### [facility] [address] [place] [address] Dr. Nathalia Banda MCHC (RBC) [Mass/Vol] 34.2 g/dL Normal 29.9-35.2 [facility] Comment on above: Performed By: #### C BC #### [facility] [address] [place] [address] Dr. Nathalia Banda MCV (RBC) [Entitic vol] 90.0 fL Normal 80.0-94.0 [facility] Comment on above: Performed By: #### C BC #### [facility] [address] [place] [address] Dr. Nathalia Banda MONO # 1.5 103/ul Critically high 0.3-0.8 [facility] Comment on above: Performed By: #### C BC #### [facility] [address] [place] [address] Dr. Nathalia Banda Monocytes/100 WBC (Bld) 12.8 % Critically high 1.7-12. 0 [facility] Comment on above: Performed By: #### C BC #### [facility] [address] [place] [address] Dr. Nathalia Banda NEUT # 7.2 103/ul Critically high 1.4-6.5 [facility] Comment on above: Performed By: #### C BC #### [facility] [address] [place] [address] Dr. Nathalia Banda Neutrophils/100 WBC (Bld) 62.7 % Normal 43.0-75.0 [facility] Comment on above: Performed By: #### C BC #### [facility] [address] [place] [address] Dr. Nathalia Banda Platelet mean volume (Bld) [Entitic vol] 10.0 fL Normal 9.5-13.5 [facility] Comment on above: Performed By: #### C BC #### [facility] [address] [place] [address] Dr. Nathalia Banda PLT 280 103/ul Normal 150-450 [facility] Comment on above: Performed By: #### C BC #### [facility] [address] [place] [address] Dr. Nathalia Banda RBC 4.61 106/ul Critically low 4.70-6.10 [facility] Comment on above: Performed By: #### C BC #### [facility] [address] [place] [address] Dr. Nathalia Banda WBC 11.5 103/ul Critically high 4.0-11.[address] [facility] Comment on above: Performed By: #### C BC #### [facility] [address] [place] [address] Dr. Nathalia Banda CBC W MANUAL DIFFon 10-27-19 21 ATYPICAL LYMPH # Normal [facility] Comment on above: Performed By: #### C BCMAN #### [facility] [address] [place] [address] Dr. Nathalia Banda ATYPICAL LYMPH % Normal [facility] Comment on above: Performed By: #### C BCMAN #### [facility] [address] [place] [address] Dr. Nathalia Banda BAND # Normal 0.0-0.3 [facility] Comment on above: Performed By: #### C BCMAN #### [facility] [address] [place] [address] Dr. Nathalia Banda BAND % Normal 0-5 [facility] Comment on above: Performed By: #### C BCMAN #### [facility] [address] [place] [address] Dr. Nathalia Banda BASOM # 0.00 103/ul Normal 0.00-0.10 [facility] Comment on above: Performed By: #### C BCNICO #### [facility] [address] [place] [address] Dr. Nathalia Banda BASOM % 0.0 % Critically low 0.2-2.0 [facility] Comment on above: Performed By: #### C BCNICO #### [facility] [address] [place] [address] Dr. Nathalia Banda BLAST # Normal [facility] Comment on above: Performed By: #### C BCNICO #### [facility] [address] [place] [address] Dr. Nathalia Banda BLAST % Normal [facility] Comment on above: Performed By: #### C VIN #### [facility] [address] [place] [address] Dr. Nathalia Banda CORRECTED WBC Normal 4.0-11.0 [facility] Comment on above: Performed By: #### C BCNICO #### [facility] [address] [place] [address] Dr. Nathalia Banda EOS # 0.00 103/ul Normal 0.00-0.70 [facility] Comment on above: Performed By: #### C VIN #### [facility] [address] [place] [address] Dr. Nathalia Banda EOS% 0.0 % Critically low 0.9-7.0 [facility] Comment on above: Performed By: #### C BCNICO #### [facility] [address] [place] [address] Dr. Nathalia Banda HCT 45.0 % Normal 42.0-54.0 [facility] Comment on above: Performed By: #### C BCNICO #### [facility] [address] [place] [address] Dr. Nathalia Banda HGB 15.3 g/dl Normal 14.0-18.0 [facility] Comment on above: Performed By: #### C VIN #### [facility] [address] [place] [address] Dr. Nathalia Banda LYMPHM # 2.03 103/ul Normal 1.20-3.80 [facility] Comment on above: Performed By: #### C VIN #### [facility] [address] [address] [address] Nathalia Banda LYMPHM% 14.0 % Critically low 20.5-60.0 [facility] Comment on above: Performed By: #### C VIN #### [facility] [address] [address] [address] Nathalia Banda MCH 30.3 pg Normal 25.9-34.0 [facility] Comment on above: Performed By: #### C VIN #### [facility] [address] [place] [address] Dr. Nathalia Banda MCHC 34.0 g/dl Normal 29.9-35.2 [facility] Comment on above: Performed By: #### C VIN #### [facility] [address] [address] [address] Nathalia Banda MCV 89.1 fL Normal 80.0-94.0 [facility] Comment on above: Performed By: #### C IVN #### [facility] [address] [place] [address] Dr. Nathalia Banda METAMYELOCYTE # Normal [facility] Comment on above: Performed By: #### C VIN #### [facility] [address] [place] [address] Dr. Nathalia Banda METAMYELOCYTE % Normal [facility] Comment on above: Performed By: #### C VIN #### [facility] [address] [place] [address] Dr. Nathalia Banda MONOM# 1.59 103/ul Critically high 0.30-0.[address] [facility] Comment on above: Performed By: #### C VIN #### [facility] [address] [place] [address] Dr. Nathalia Banda MONOM% 11.0 % Normal 1.7-12.0 [facility] Comment on above: Performed By: #### C VIN #### [facility] [address] [address] [address] Nathalia Banda MPV 9.7 fL Normal 9.5-13.5 [facility] Comment on above: Performed By: #### C VIN #### [facility] [address] [address] [address] Nathalia Banda MYELOCYTE # Normal [facility] Comment on above: Performed By: #### C VIN #### [facility] [address] [address] [address] Nathalia Banda MYELOCYTE % Normal [facility] Comment on above: Performed By: #### C VIN #### [facility] [address] [place] [address] Dr. Nathalia Banda NRBC Normal [facility] Comment on above: Performed By: #### C VIN #### [facility] [address] [place] [address] Dr. Nathalia Banda PLT 333 103/ul Normal 150-450 [facility] Comment on above: Performed By: #### C VIN #### [facility] [address] [place] [address] Dr. Nathalia Banda RBC 5.05 106/ul Normal 4.70-6.10 [facility] Comment on above: Performed By: #### C VIN #### [facility] [address] [place] [address] Dr. Nathalia Banda RDW 11.5 % Normal 11.0-15.0 [facility] Comment on above: Performed By: #### C VIN #### [facility] [address] [address] [address] Nathalia Banda SEG # 10.88 103/ul Critically high 1.40-6.50 [facility] Comment on above: Performed By: #### C VIN #### [facility] [address] [place] [address] Dr. Nathalia Banda SEG % 75.0 % Normal 43.0-75.0 [facility] Comment on above: Performed By: #### C VIN #### [facility] [address] [place] [address] Dr. Nathalia Banda WBC 14.5 103/ul Critically high 4.0-11.0 [facility] Comment on above: Performed By: #### C BCMAN #### [facility] [address] [place] [address] Dr. Nathalia Banda Covid-19 PCR ([facility])on 10-08 SARS-CoV-2 (COVID-19) RNA ZOHAIB+probe Ql (Unsp spec) Not detected Normal NOT DETECTED [facility] Comment on above: Result Comment: This test is not yet approved or cleared by the [place] FDA. When there are no FDA-approved or cleared tests available, and other criteria are met, FDA can make tests available under an emergency access mechanism called an Emergency Use Authorization (EUA). The EUA for this test is supported by the [place] of Health and Human Service's (HHS's) declaration that circumstances exist to justify the emergency use of in vitro diagnostics for the detection and/or diagnosis of the virus that causes COVID-19. This EUA will remain in effect (meaning this test can be used) for the duration of the COVID-19 declaration justifying emergency of IVDs, unless it is terminated or revoked by FDA (after which the test may no longer be used). When diagnostic testing is negative, the possibility of a false negative should be considered in the context of a patient's recent exposures and the presence of clinical signs and symptoms consistent with SARS-CoV-2. Performed By: #### C BC #### [facility] [address] [place] [address] Dr. Nathalia Banda LIPASEon 10-26-2020 Lipase [Catalytic activity/Vol] 1202.0 U/L Critically high 23.0-300.0 [facility] Comment on above: Result Comment: Test repeated. Critical value verified. Performed By: #### L IPA, CMP #### [facility] [address] [place] [address] Edin Perez Lipase [Catalytic activity/Vol] 1514.0 U/L Critically high 23.0-300.0 [facility] Comment on above: Result Comment: test repeated, critical value verified Performed By: #### C BC #### [facility] [address] [place], [place] [address] Dr. Nathalia Banda LIPID PROFILEon 10-26-2020 CHOL-HDL RATIO NORM SEE BELOW Normal [facility] Comment on above: Result Comment: 3.3 - 4.4 LOW RISK 4.4 - 7.1 AVERAGE RISK 7.1 - 11.0 MODERATE RISK >11.0 HIGH RISK Performed By: #### L IPA, CMP #### [facility] [address] [place], [place] [address] Edin Ana Cholesterol [Mass/Vol] 149 mg/dL Normal <=200 [facility] Comment on above: Performed By: #### L IPA, CMP #### [facility] [address] [place], [place] [address] Edin Ana Cholesterol in HDL [Mass/Vol] 42 mg/dL Normal [facility] Comment on above: Performed By: #### L IPA, CMP #### [facility] [address] [id number] Edin Ana Cholesterol in LDL [Mass/Vol] 86.2 mg/dL Normal [facility] Comment on above: Performed By: #### L IPA, CMP #### [facility] [address] [place], [place] [address] Edin Ana Cholesterol.total/Choles terol in HDL [Mass ratio] 3.5 {ratio} Normal [facility] Comment on above: Performed By: #### L IPA, CMP #### [facility] [address] [place], [place] [address] Edin Ana HDL NORMAL > or = 60 mg/dl - LO W CARDIOVASCULAR RISK <40 mg/dl - HIGH CARDIOVASCULAR RISK Normal [facility] Comment on above: Performed By: #### L IPA, CMP #### [facility] [address] [place], [place] [address] Edin Ana LDL CALC NORMAL SEE BELOW Normal [facility] Comment on above: Result Comment: <100 mg/dl OPTIMAL 100 - 129 mg/dl NEAR OR ABOVE OPTIMAL 130 - 159 mg/dl BORDERLINE HIGH 160 - 189 mg/dl HIGH >190 mg/dl VERY HIGH Performed By: #### L IPA, CMP #### [facility] [address] [id number] Edin Ana Triglyceride [Mass/Vol] 104 mg/dL Normal <=150 T [facility] Comment on above: Performed By: #### L IPA, CMP #### [facility] [address] [id number] Edin Ana VLDL CALC 20.8 mg/dL Normal [facility] Comment on above: Performed By: #### L IPA, CMP #### [facility] [address] [id number] Edin Ana PROF 14(COMP METB)on 021 Albumin [Mass/Vol] 2.9 g/dL Critically low 3.5-5.0 [facility] Comment on above: Performed By: #### L IPA, CMP #### [facility] [address] [place], [place] [id number] Edin Ana Albumin/Globulin [Mass ratio] 0.7 {ratio} Normal [facility] Comment on above: Performed By: #### L IPA, CMP #### [facility] [address] [place], [place] [id number] Edin Ana ALP [Catalytic activity/Vol] 75 U/L Normal 38-126 [facility] Comment on above: Performed By: #### L IPA, CMP #### [facility] [address] [place], [place] [id number] Edin Ana ALT [Catalytic activity/Vol] 21 U/L Normal 21-72 [facility] Comment on above: Performed By: #### L IPA, CMP #### [facility] [address] [place], [place] [address] Edin Ana Anion gap [Moles/Vol] 13.2 mmol/L Normal [facility] Comment on above: Performed By: #### L IPA, CMP #### [facility] [address] [place], [place] [id number] Edin Ana AST [Catalytic activity/Vol] 11 U/L Critically low 17-59 [facility] Comment on above: Performed By: #### L IPA, CMP #### [facility] [address] [address] Edin Ana Bilirubin [Mass/Vol] 0.4 mg/dL Normal 0.2-1.3 [facility] Comment on above: Performed By: #### L IPA, CMP #### [facility] [address] [place], [place] [id number] Edin Ana Calcium [Mass/Vol] 9.1 mg/dL Normal 8.4-10.2 [facility] Comment on above: Performed By: #### L IPA, CMP #### [facility] [address] [id number] Edin Ana Chloride [Moles/Vol] 97 mmol/L Critically low 98-107 [facility] Comment on above: Performed By: #### L IPA, CMP #### [facility] [address] [place] [address] Edin Ana CO2 [Moles/Vol] 25.8 mmol/L Normal 22.0-30.0 [facility] Comment on above: Performed By: #### L IPA, CMP #### [facility] [address] [place], [place] [address] Edin Ana Creatinine [Mass/Vol] 0.85 mg/dL Normal 0.66-1.25 [facility] Comment on above: Performed By: #### L IPA, CMP #### [facility] [address] [place], [place] [address] Edin Ana EGFR-AF ROMANIAN >60 Normal >=60 [facility] Comment on above: Performed By: #### L IPA, CMP #### [facility] [address] [place], [place] [address] Edin Ana EGFR-NON AF ROMANIAN >60 Normal >=60 [facility] Comment on above: Performed By: #### L IPA, CMP #### [facility] [address] [place], [place] [address] Edin Ana Globulin (S) [Mass/Vol] 4.3 g/dL Normal [facility] Comment on above: Performed By: #### L IPA, CMP #### [facility] [address] [place], [place] [address] Edin Ana Glucose [Mass/Vol] 100 mg/dL Normal 74-106 [facility] Comment on above: Performed By: #### L IPA, CMP #### [facility] [address] [place], [place] [address] Edin Ana Potassium [Moles/Vol] 4.0 mmol/L Normal 3.4-5.0 [facility] Comment on above: Performed By: #### L IPA, CMP #### [facility] [address] [place], [place] [address] Edin Ana Protein [Mass/Vol] 7.2 g/dL Normal 6.1-8.2 [facility] Comment on above: Performed By: #### L IPA, CMP #### [facility] [address] [place], [place] [address] Edin Ana Sodium [Moles/Vol] 132 mmol/L Critically low 137-145 [facility] Comment on above: Performed By: #### L IPA, CMP #### [facility] [address] [place], [place] [address] Edin Ana Urea nitrogen [Mass/Vol] 12.0 mg/dL Normal 9.0-20.0 [facility] Comment on above: Performed By: #### L IPA, CMP #### [facility] [address] [place], [place] [address] Edin Ana Urea nitrogen/Creatinine [Mass ratio] 14.1 mg/mg Normal [facility] Comment on above: Performed By: #### L IPA, CMP #### [facility] [address] [place], [place] [address] Edin Ana Albumin [Mass/Vol] 3.4 g/dL Critically low 3.5-5.0 [facility] Comment on above: Performed By: #### L IPA, CMP #### [facility] [address] [place], [place] [address] Edin Ana Albumin/Globulin [Mass ratio] 0.7 {ratio} Normal [facility] Comment on above: Performed By: #### L IPA, CMP #### [facility] [address] [place], [place] [address] Edin Ana ALP [Catalytic activity/Vol] 90 U/L Normal 38-126 [facility] Comment on above: Performed By: #### L IPA, CMP #### [facility] [address] [address] Edin Ana ALT [Catalytic activity/Vol] 25 U/L Normal 21-72 [facility] Comment on above: Performed By: #### L IPA, CMP #### [facility] [address] [address] Edin Ana Anion gap [Moles/Vol] 12.8 mmol/L Normal [facility] Comment on above: Performed By: #### L IPA, CMP #### [facility] [address] [place] [address] Edin Ana AST [Catalytic activity/Vol] 13 U/L Critically low 17-59 [facility] Comment on above: Performed By: #### L IPA, CMP #### [facility] [address] [place] [address] Edin Ana Bilirubin [Mass/Vol] 0.4 mg/dL Normal 0.2-1.3 [facility] Comment on above: Performed By: #### L IPA, CMP #### [facility] [address] [place] [address] Edin Ana Calcium [Mass/Vol] 9.4 mg/dL Normal 8.4-10.2 [facility] Comment on above: Performed By: #### L IPA, CMP #### [facility] [address] [place] [address] Edin Ana Chloride [Moles/Vol] 94 mmol/L Critically low 98-107 [facility] Comment on above: Performed By: #### L IPA, CMP #### [facility] [address] [address] Edin Ana CO2 [Moles/Vol] 27.1 mmol/L Normal 22.0-30.[address] [facility] Comment on above: Performed By: #### L IPA, CMP #### [facility] [address] [address] Edin Ana Creatinine [Mass/Vol] 0.85 mg/dL Normal 0.66-1.25 [facility] Comment on above: Performed By: #### L IPA, CMP #### [facility] [address] [place], [place] [address] Edin Ana EGFR-AF ROMANIAN >60 Normal >=[address] [facility] Comment on above: Performed By: #### L IPA, CMP #### [facility] [address] [id number] Edin Ana EGFR-NON AF ROMANIAN >60 Normal >=60 [facility] Comment on above: Performed By: #### L IPA, CMP #### [facility] [address] [place], [place] [address] Edin Ana Globulin (S) [Mass/Vol] 4.9 g/dL Normal [facility] Comment on above: Performed By: #### L IPA, CMP #### [facility] [address] [id number] Edin Ana Glucose [Mass/Vol] 117 mg/dL Critically high 74-106 [facility] Comment on above: Performed By: #### L IPA, CMP #### [facility] [address] [id number] Edin Ana Potassium [Moles/Vol] 3.9 mmol/L Normal 3.4-5.0 [facility] Comment on above: Performed By: #### L IPA, CMP #### [facility] [address] [id number] Edin Ana Protein [Mass/Vol] 8.3 g/dL Critically high 6.1-8.2 [facility] Comment on above: Performed By: #### L IPA, CMP #### [facility] [address] [id number] Edin Ana Sodium [Moles/Vol] 130 mmol/L Critically low 137-145 [facility] Comment on above: Performed By: #### L IPA, CMP #### [facility] [address] [id number] Edin Ana Urea nitrogen [Mass/Vol] 13.0 mg/dL Normal 9.0-20.0 [facility] Comment on above: Performed By: #### L IPA, CMP #### [facility] [address] [address] Edin Ana Urea nitrogen/Creatinine [Mass ratio] 15.3 mg/mg Normal [facility] Comment on above: Performed By: #### L IPA, CMP #### [facility] [address] [address] Edin Ana XR ABD FLAT UP_PA Prem 10-26 XR ABD FLAT UP_PA CH EXAM: XR ABD FLAT UP_PA CH HISTORY: UNSPECIFIED ABDOMINAL PAIN COMPARISON: None. FINDINGS: No dilated gas-filled bowel loops to suggest obstruction. Few nonspecific air-fluid levels. No free air. Moderate amount of fecal loading. Degenerative changes of the lower lumbar spine. Lungs are clear. Possible granuloma in the left lateral midlung. Cardiomediastinal silhouette within normal limits. IMPRESSION: No evidence of obstruction. Moderate fecal loading. Electronically authenticated by: JOHN CEE Date: 2020-10-25 23:34 Normal [facility] CBC W MANUAL DIFFon 10-18-19 21 ATYPICAL LYMPH # Normal [facility] Comment on above: Performed By: #### L IPA, CMP #### [facility] [address] [address] Edin Ana ATYPICAL LYMPH % Normal [facility] Comment on above: Performed By: #### L IPA, CMP #### [facility] [address] [address] Edin Ana BAND # Normal 0.0-0.3 [facility] Comment on above: Performed By: #### L IPA, CMP #### [facility] [address] [address] Edin Ana BAND % Normal 0-5 [facility] Comment on above: Performed By: #### L IPA, CMP #### [facility] [address] [place] [address] Edin Ana BASOM # 0.00 103/ul Normal 0.00-0.10 [facility] Comment on above: Performed By: #### L IPA, CMP #### [facility] [address] [address] Edin Ana BASOM % 0.0 % Critically low 0.2-2.0 [facility] Comment on above: Performed By: #### L IPA, CMP #### [facility] [address] [place] [address] Edin Ana BLAST # Normal [facility] Comment on above: Performed By: #### L IPA, CMP #### [facility] [address] [place] [address] Edin Ana BLAST % Normal [facility] Comment on above: Performed By: #### L IPA, CMP #### [facility] [address] [place] [address] Edin Ana CORRECTED WBC Normal 4.0-11.0 [facility] Comment on above: Performed By: #### L IPA, CMP #### [facility] [address] [place] [address] Edin Ana EOS # 0.16 103/ul Normal 0.00-0.70 [facility] Comment on above: Performed By: #### L IPA, CMP #### [facility] [address] [place] [address] Edin Ana EOS% 1.0 % Normal 0.9-7.0 [facility] Comment on above: Performed By: #### L IPA, CMP #### [facility] [address] [place] [address] Edin Ana HCT 47.7 % Normal 42.0-54.0 [facility] Comment on above: Performed By: #### L IPA, CMP #### [facility] [address] [place] [address] Edin Ana HGB 16.5 g/dl Normal 14.0-18.0 [facility] Comment on above: Performed By: #### L IPA, CMP #### [facility] [address] [place] [address] Edin Ana LYMPHM # 2.67 103/ul Normal 1.20-3.80 [facility] Comment on above: Performed By: #### L IPA, CMP #### [facility] [address] [id number] Edin Ana LYMPHM% 17.0 % Critically low 20.5-60.0 [facility] Comment on above: Performed By: #### L IPA, CMP #### [facility] [address] [address] Edin Ana MCH 31.1 pg Normal 25.9-34.0 [facility] Comment on above: Performed By: #### L IPA, CMP #### [facility] [address] [place] [address] Edin Ana MCHC 34.6 g/dl Normal 29.9-35.2 [facility] Comment on above: Performed By: #### L IPA, CMP #### [facility] [address] [place] [address] Edin Ana MCV 90.0 fL Normal 80.0-94.0 [facility] Comment on above: Performed By: #### L IPA, CMP #### [facility] [address] [place] [address] Edin Ana METAMYELOCYTE # Normal [facility] Comment on above: Performed By: #### L IPA, CMP #### [facility] [address] [place], [place] [id number] Edin Ana METAMYELOCYTE % Normal [facility] Comment on above: Performed By: #### L IPA, CMP #### [facility] [address] [place] [address] Edin Ana MONOM# 1.10 103/ul Critically high 0.30-0.[address] [facility] Comment on above: Performed By: #### L IPA, CMP #### [facility] [address] [place] [address] Edin Ana MONOM% 7.0 % Normal 1.7-12.0 [facility] Comment on above: Performed By: #### L IPA, CMP #### [facility] [address] [place] [address] Edin Ana MPV 10.3 fL Normal 9.5-13.5 [facility] Comment on above: Performed By: #### L IPA, CMP #### [facility] [address] [place], [place] [address] Edin Ana MYELOCYTE # Normal [facility] Comment on above: Performed By: #### L IPA, CMP #### [facility] [address] [place], [place] [address] Edin Ana MYELOCYTE % Normal [facility] Comment on above: Performed By: #### L IPA, CMP #### [facility] [address] [place], [place] [address] Edin Ana NRBC Normal [facility] Comment on above: Performed By: #### L IPA, CMP #### [facility] [address] [place] [id number] Edin Ana PLT 227 103/ul Normal 150-450 [facility] Comment on above: Performed By: #### L IPA, CMP #### [facility] [address] [place] [id number] Edin Naa RBC 5.30 106/ul Normal 4.70-6.10 [facility] Comment on above: Performed By: #### L IPA, CMP #### [facility] [address] [place], [place] [address] Edin Ana RDW 11.7 % Normal 11.0-15.0 [facility] Comment on above: Performed By: #### L IPA, CMP #### [facility] [address] [place], [place] [address] Edin Ana SEG # 11.78 103/ul Critically high 1.40-6.50 [facility] Comment on above: Performed By: #### L IPA, CMP #### [facility] [address] [place], [place] [address] Edin Ana SEG % 75.0 % Normal 43.0-75.0 [facility] Comment on above: Performed By: #### L IPA, CMP #### [facility] [address] [place], [place] [address] Edin Ana WBC 15.7 103/ul Critically high 4.0-11.[address] [facility] Comment on above: Performed By: #### L IPA, CMP #### [facility] [address] [place] [address] ABD/PELV W CONon 10-18-19 CT ABD/PELV W CON EXAMINATION: CT ABD/PELV W CON HISTORY: GENERALIZED ABDOMINAL PAIN COMPARISON: None. TECHNIQUE: Axial CT images were obtained from the lung bases through the pelvis after the administration of IV contrast. Coronal and sagittal reconstruction images were also obtained. Dose reduction techniques were achieved by using automated exposure control and/or adjustment of mA and/or kV according to patient size and/or use of iterative reconstruction technique. FINDINGS: There is ill-defined stranding surrounding the pancreatic head/uncinate process. There is no CT evidence of peripancreatic fluid collection or haylie necrosis. The pancreatic parenchyma demonstrates normal enhancement. A few subcentimeter lymph nodes along the celiac axis is likely reactive in nature. Mild thickening of the duodenal bulb is likely related to duodenitis. The visualized portion of the lung bases is clear. The visualized portion of the heart appears unremarkable. The distal esophagus is underdistended. Suspect a small sliding-type hiatal hernia. The liver is homogeneous in attenuation. Mild hepatic steatosis. The gallbladder is fluid-filled. The spleen, bilateral adrenal glands appear unremarkable. There is a 9 mm intracortical low-density lesion in the midpole of the left kidney, suggestive of a cyst. The kidneys are otherwise enhancing symmetrically without any hydronephrosis. There is no nephrolithiasis. No bulky retroperitoneal lymph nodes. The bladder is incompletely distended with diffuse bladder wall thickening. There is also subtle stranding in the perivesical space. The prostate and seminal vesicles are within normal limits. Evaluation of the GI tract is limited due to lack of oral contrast. There is also superimposed underdistention of the bowel loops. Allowing for the limitation of the study, the small and large bowel are normal in caliber. No bowel obstruction. The appendix is normal in caliber. There is a moderate amount of stool burden. Mild colonic diverticulosis. There is diastasis of the rectus abdominis. Small fat-containing midline ventral hernia. No gross abnormalities of the abdominal wall. No bulky retroperitoneal, pelvic sidewall, inguinal lymph nodes. Bone windows demonstrate no suspicious osseous lesion. There is sacralization of L5 vertebral body. IMPRESSION: 1. Imaging findings are consistent with acute uncomplicated pancreatitis. 2. No bowel obstruction. The appendix is normal in caliber. Mild colonic diverticulosis. Moderate amount of stool burden. Thickening of the duodenal bulb is likely related to adjacent inflammatory process. Left renal cortical cysts. No hydronephrosis/nephro lithiasis. Diastasis of the rectus abdominis. Bladder wall thickening. Although this could be related to underdistention, given the subtle perivesical stranding, superimposed cystitis cannot be excluded. If indicated, this can be further evaluated with lab values and urinalysis. Electronically authenticated by: GINNY NANYCAM Date: 2020-10-17 20:00 Normal [facility] LACTATE/LACTIC ACIDon 2020 Lactate [Moles/Vol] 1.2 mmol/L Normal 0.7-2.0 [facility] Comment on above: Performed By: #### L ACT #### [facility] [address] [place], [place] [id number] Edin Perez LIPASEon 10-17-2020 Lipase [Catalytic activity/Vol] 638.0 U/L Critically high 23.0-300.0 [facility] Comment on above: Performed By: #### L IPA, CMP #### [facility] [address] [place] [address] Edin Perez PROF 14(COMP METB)on 021 Albumin [Mass/Vol] 3.9 g/dL Normal 3.5-5.0 [facility] Comment on above: Performed By: #### L IPA, CMP #### [facility] [address] [place], [place] [address] Edin Perez Albumin/Globulin [Mass ratio] 0.9 {ratio} Normal [facility] Comment on above: Performed By: #### L IPA, CMP #### [facility] [address] [place], [place] [address] Edin Ana ALP [Catalytic activity/Vol] 94 U/L Normal 38-126 [facility] Comment on above: Performed By: #### L IPA, CMP #### [facility] [address] [place], [place] [address] Edin Ana ALT [Catalytic activity/Vol] 24 U/L Normal 21-72 [facility] Comment on above: Performed By: #### L IPA, CMP #### [facility] [address] [place] [id number] Edin Ana Anion gap [Moles/Vol] 11.4 mmol/L Normal [facility] Comment on above: Performed By: #### L IPA, CMP #### [facility] [address] [place] [id number] Edin Ana AST [Catalytic activity/Vol] 13 U/L Critically low 17-59 [facility] Comment on above: Performed By: #### L IPA, CMP #### [facility] [address] [address] Edin Ana Bilirubin [Mass/Vol] 0.8 mg/dL Normal 0.2-1.3 [facility] Comment on above: Performed By: #### L IPA, CMP #### [facility] [address] [place] [address] Edin Ana Calcium [Mass/Vol] 9.5 mg/dL Normal 8.4-10.2 [facility] Comment on above: Performed By: #### L IPA, CMP #### [facility] [address] [place] [id number] Edin Ana Chloride [Moles/Vol] 97 mmol/L Critically low 98-107 [facility] Comment on above: Performed By: #### L IPA, CMP #### [facility] [address] [place] [id number] Edin Ana CO2 [Moles/Vol] 27.5 mmol/L Normal 22.0-30.0 [facility] Comment on above: Performed By: #### L IPA, CMP #### [facility] [address] [place] [id number] Edin Ana Creatinine [Mass/Vol] 0.93 mg/dL Normal 0.66-1.25 [facility] Comment on above: Performed By: #### L IPA, CMP #### [facility] [address] [place] [id number] Edin Ana EGFR-AF ROMANIAN >60 Normal >=60 [facility] Comment on above: Performed By: #### L IPA, CMP #### [facility] [address] [place], [place] [address] Edin Ana EGFR-NON AF ROMANIAN >60 Normal >=60 [facility] Comment on above: Performed By: #### L IPA, CMP #### [facility] [address] [place], [place] [address] Edin Ana Globulin (S) [Mass/Vol] 4.5 g/dL Normal [facility] Comment on above: Performed By: #### L IPA, CMP #### [facility] [address] [place] [id number] Edin Ana Glucose [Mass/Vol] 131 mg/dL Critically high 74-106 [facility] Comment on above: Performed By: #### L IPA, CMP #### [facility] [address] [place] [id number] Edin Ana Potassium [Moles/Vol] 3.9 mmol/L Normal 3.4-5.0 [facility] Comment on above: Performed By: #### L IPA, CMP #### [facility] [address] [place] [id number] Edin Ana Protein [Mass/Vol] 8.4 g/dL Critically high 6.1-8.2 [facility] Comment on above: Performed By: #### L IPA, CMP #### [facility] [address] [place] [id number] Edin Ana Sodium [Moles/Vol] 132 mmol/L Critically low 137-145 [facility] Comment on above: Performed By: #### L IPA, CMP #### [facility] [address] [place] [id number] Edin Ana Urea nitrogen [Mass/Vol] 10.0 mg/dL Normal 9.0-20.0 [facility] Comment on above: Performed By: #### L IPA, CMP #### [facility] [address] [place] [id number] Edin Ana Urea nitrogen/Creatinine [Mass ratio] 10.8 mg/mg Normal [facility] Comment on above: Performed By: #### L IPA, CMP #### [facility] [address] [place] [id number] Edin Ana CBC AUTO DIFFon 01-21-2020 BASO # 0.1 103/ul Normal 0.0-0.1 [facility] Comment on above: Performed By: #### C BC #### [facility] [address] [place] [id number] Edin Ana Basophils/100 WBC (Bld) 0.9 % Normal 0.2-2.0 [facility] Comment on above: Performed By: #### C BC #### [facility] [address] [place] [address] Edin Ana EO # 0.4 103/ul Normal 0.0-0.7 [facility] Comment on above: Performed By: #### C BC #### [facility] [address] [place] [address] Edin Ana Eosinophils/100 WBC (Bld) 3.8 % Normal 0.9-7.0 [facility] Comment on above: Performed By: #### C BC #### [facility] [address] [place], [place] [address] Edin Ana Erythrocyte distribution width (RBC) [Ratio] 12.3 % Normal 11.0-15.0 [facility] Comment on above: Performed By: #### C BC #### [facility] [address] [place], [place] [address] Edin Ana Hematocrit (Bld) [Volume fraction] 44.5 % Normal 42.0-54.0 [facility] Comment on above: Performed By: #### C BC #### [facility] [address] [place], [place] [address] Edin Ana Hemoglobin (Bld) [Mass/Vol] 14.8 g/dL Normal 14.0-18.0 [facility] Comment on above: Performed By: #### C BC #### [facility] [address] [place], [place] [address] Edin Ana IG # 0.06 10e3/ul Critically high 0.00-0.03 [facility] Comment on above: Performed By: #### C BC #### [facility] [address] [place], [place] [address] Edin Ana IG % 0.6 % Critically high 0.0-0.5 [facility] Comment on above: Performed By: #### C BC #### [facility] [address] [place], [place] [address] Edin Ana LYMPH # 3.0 103/ul Normal 1.2-3.8 [facility] Comment on above: Performed By: #### C BC #### [facility] [address] [place], [place] [address] Edin Ana Lymphocytes/100 WBC (Bld) 29.5 % Normal 20.5-60.0 [facility] Comment on above: Performed By: #### C BC #### [facility] [address] [place] [address] Edin Ana MANUAL DIFF REQ NO Normal [facility] Comment on above: Performed By: #### C BC #### [facility] [address] [place], [place] [address] Edin Ana MCH (RBC) [Entitic mass] 31.1 pg Normal 25.9-34.0 [facility] Comment on above: Performed By: #### C BC #### [facility] [address] [place], [place] [address] Edinrico Perez MCHC (RBC) [Mass/Vol] 33.3 g/dL Normal 29.9-35.2 [facility] Comment on above: Performed By: #### C BC #### [facility] [address] [place] [address] Edin Ana MCV (RBC) [Entitic vol] 93.5 fL Normal 80.0-94.0 [facility] Comment on above: Performed By: #### C BC #### [facility] [address] [place], [place] [address] Eidn Ana MONO # 1.2 103/ul Critically high 0.3-0.8 [facility] Comment on above: Performed By: #### C BC #### [facility] [address] [place], [place] [address] Edin Ana Monocytes/100 WBC (Bld) 11.3 % Normal 1.7-12.0 [facility] Comment on above: Performed By: #### C BC #### [facility] [address] [place], [place] [address] Edin Perez NEUT # 5.6 103/ul Normal 1.4-6.5 [facility] Comment on above: Performed By: #### C BC #### [facility] [address] [place], [place] [address] Edin Perez Neutrophils/100 WBC (Bld) 53.9 % Normal 43.0-75.0 [facility] Comment on above: Performed By: #### C BC #### [facility] [address] [place], [place] [address] Edin Perez Platelet mean volume (Bld) [Entitic vol] 10.5 fL Normal 9.5-13.5 [facility] Comment on above: Performed By: #### C BC #### [facility] [address] [place] [address] Edin Perez PLT 234 103/ul Normal 150-450 [facility] Comment on above: Performed By: #### C BC #### [facility] [address] [place], [place] [address] Edin Perez RBC 4.76 106/ul Normal 4.70-6.10 [facility] Comment on above: Performed By: #### C BC #### [facility] [address] [place], [place] [address] Edin Perez WBC 10.3 103/ul Normal 4.0-11.0 [facility] Comment on above: Performed By: #### C BC #### [facility] [address] [place], [place] [address] Edin Ana PROF 14(COMP METB)on 020 Albumin [Mass/Vol] 3.9 g/dL Normal 3.5-5.0 [facility] Comment on above: Performed By: #### C BC #### [facility] [address] [place], [place] [address] Dr. Nathalia Banda Albumin/Globulin [Mass ratio] 1.1 {ratio} Normal [facility] Comment on above: Performed By: #### C BC #### [facility] [address] [address] [address] Nathalia Banda ALP [Catalytic activity/Vol] 78 U/L Normal 38-126 [facility] Comment on above: Performed By: #### C BC #### [facility] [address] [address] [address] Nathalia Banda ALT [Catalytic activity/Vol] 40 U/L Normal 21-72 [facility] Comment on above: Performed By: #### C BC #### [facility] [address] [place] [address] [address] Nathalia Banda Anion gap [Moles/Vol] 15.3 mmol/L Normal [facility] Comment on above: Performed By: #### C BC #### [facility] [address] [place] [address] Dr. Nathalia Banda AST [Catalytic activity/Vol] 17 U/L Normal 17-59 [facility] Comment on above: Performed By: #### C BC #### [facility] [address] [place] [address] Dr. Nathalia Banda Bilirubin [Mass/Vol] 0.6 mg/dL Normal 0.2-1.3 [facility] Comment on above: Performed By: #### C BC #### [facility] [address] [place] [address] Dr. Nathalia Banda Calcium [Mass/Vol] 9.4 mg/dL Normal 8.4-10.2 [facility] Comment on above: Performed By: #### C BC #### [facility] [address] [place] [address] Dr. Nathalia Banda Chloride [Moles/Vol] 103 mmol/L Normal 98-107 [facility] Comment on above: Performed By: #### C BC #### [facility] [address] [place] [address] Dr. Nathalia Banda CO2 [Moles/Vol] 25.0 mmol/L Normal 22.0-30.[address] [facility] Comment on above: Performed By: #### C BC #### [facility] [address] [address] [address] Nathalia Banda Creatinine [Mass/Vol] 0.81 mg/dL Normal 0.66-1.25 [facility] Comment on above: Performed By: #### C BC #### [facility] [address] [place] [address] Dr. Nathalia Banda EGFR-AF ROMANIAN >60 Normal >=[address] [facility] Comment on above: Performed By: #### C BC #### [facility] [address] [place] [address] [address] Nathalia Banda EGFR-NON AF ROMANIAN >60 Normal >=60 [facility] Comment on above: Performed By: #### C BC #### [facility] [address] [place] [address] Dr. Nathalia Banda Globulin (S) [Mass/Vol] 3.7 g/dL Normal [facility] Comment on above: Performed By: #### C BC #### [facility] [address] [place] [address] Dr. Nathalia Banda Glucose [Mass/Vol] 100 mg/dL Normal 74-106 [facility] Comment on above: Performed By: #### C BC #### [facility] [address] [place] [address] Dr. Nathalia Banda Potassium [Moles/Vol] 4.3 mmol/L Normal 3.4-5.0 [facility] Comment on above: Performed By: #### C BC #### [facility] [address] [place] [address] Dr. Nathalia Banda Protein [Mass/Vol] 7.6 g/dL Normal 6.1-8.2 [facility] Comment on above: Performed By: #### C BC #### [facility] [address] [place] [address] Dr. Nathalia Banda Sodium [Moles/Vol] 139 mmol/L Normal 137-145 [facility] Comment on above: Performed By: #### C BC #### [facility] [address] [place] [address] Dr. Nathalia Banda Urea nitrogen [Mass/Vol] 17.0 mg/dL Normal 9.0-20.0 [facility] Comment on above: Performed By: #### C BC #### [facility] [address] [place] [address] Dr. Nathalia Banda Urea nitrogen/Creatinine [Mass ratio] 21.0 mg/mg Normal [facility] Comment on above: Performed By: #### C BC #### [facility] [address] [place] [address] Dr. Nathalia Banda T4on 01-21-2020 T4 [Mass/Vol] 8.10 ug/dL Normal 5.53-11.00 [facility] Comment on above: Performed By: #### C BC #### [facility] [address] [place] [address] Dr. Nathalia Banda TSHon 01-21-2020 TSH 2.041 uIU/mL Normal 0.470-4.680 [facility] Comment on above: Performed By: #### C BC #### [facility] [address] [place] [address] Dr. Nathalia Banda TSH RANGE SEE BELOW Normal [facility] Comment on above: Result Comment: <0.3 4 UIU/ml HYPERTHYROID 0.34-5.60 UIU/ml EUTHYROID >5.60 UIU/ml HYPOTHYROID Performed By: #### C BC #### [facility] [address] [place] [address] Dr. Nathalia Banda Sperm Morphologyon 8 Sperm Morphology SEE REPORT Normal [facility] Comment on above: Result Comment: [facility] [address] [place], [place] [id number] [phone] Performed By: #### ALEX HELM ####[facility] [id number] [place] [id number] Seminal Fluid Examon 018 Consistency HOMOGENEOUS Normal [facility] Comment on above: Performed By: #### HANK HELMH ####[address] [address] Liquification Time Normal Normal NORM [facility] Comment on above: Result Comment: Refe rence Range: <30 min from collection Performed By: #### S VINCENT SMORPH ####[address] [address] pH - Seminal Fl. 8.6 Normal >7.1 [facility] Comment on above: Performed By: #### S VINCENT SMORPH ####[address] [address] Progressive Motility 60% Normal >39 [facility] Comment on above: Performed By: #### S VINCENT SMORPH ####[address] [address] Sperm - Count 31 million/mL Normal >15 [facility] Comment on above: Performed By: #### Lynsey KAUR SMORPH ####[address] [address] Sperm Morphology Sample sent to reference laboratory. Normal [facility] Comment on above: Result Comment: [address] [address] Performed By: #### Lynsey KAUR SMORPH ####[address] [address] Turbidity CLOUDY Normal [facility] Comment on above: Performed By: #### S VINCENT SMORPH ####[address] [address] Urine, color WYNNE Normal [facility] Comment on above: Performed By: #### S VINCENT SMORPH ####[address] [address] Volume-Seminal Fl. 0.8 mL Low >1.4 [facility] Comment on above: Performed By: #### S FFYAIMA SMORPH ####[address] [address] Azoospermatic Conf. NOT REPORTED Normal [facility] Comment on above: Performed By: #### S VINCENT SMORPH ####[address] [address] Body temperature NOT REPORTED Normal [facility] Comment on above: Performed By: #### S VINCENT SMORPH ####[address] [address] Morphology-Sperm NOT REPORTED Normal >60 [facility] Comment on above: Performed By: #### S VINCENT SMORPH ####[address] [address] Reviewing Pathologist: NOT REPORTED Normal [facility] Comment on above: Performed By: #### S VINCENT SMORPH ####[address] [address] Sperm Mot Check Time NOT REPORTED Normal [facility] Comment on above: Performed By: #### S VINCENT SMORPH ####[address] [address] Sperm Viablity NOT REPORTED Normal >50 [facility] Comment on above: Performed By: #### S FFYAIMA SMORPH ####[facility] [id number] [place] [address] WBC (Leukocytes) NOT REPORTED Normal 0 [facility] Comment on above: Performed By: #### S FFYAIMA SMORPH ####[address] [address] Other NOT REPORTED Normal [facility] Comment on above: Performed By: #### S FFER, SMORP ####[facility] [id number] [place] [id number] Vital Signs Date Time Vital Sign Value Performing Clinician Kell hamm 12-20-2021 14:23-0500 Diastolic blood pressure 84 mm[Hg] DO [employer] Work Phone: [facility] 12-20-2021 14:23-0500 Heart rate 76 /min DO [employer] Work Phone: [facility] 12-20-2021 14:23-0500 Respiratory rate 16 /min DO [employer] Work Phone: [facility] 12-20-2021 14:23-0500 SaO2% (BldA) [Mass fraction] 96 % DO [employer] Work Phone: [facility] 12-20-2021 14:23-0500 Systolic blood pressure 148 mm[Hg] DO [employer] Work Phone: [facility] 12-20-2021 12:58-0500 Body temperature 97.8 [degF] DO [employer] Work Phone: [facility] 12-20-2021 12:58-0500 Inhaled oxygen flow rate 10 L/min DO [employer] Work Phone: [facility] 12-20-2021 11:51-0500 Body height 172.72 cm DO [employer] Work Phone: [facility] 12-20-2021 11:51-0500 Body mass index (BMI) [Ratio] 37.8 kg/m2 DO [employer] Work Phone: [facility] 12-20-2021 11:51-0500 Body weight 113 kg DO [employer] Work Phone: [facility] Encounters Encounter Date Encounter Type Care Provider Facility Start: 04-24-2023 End: 04-24-2023 ambulatory ROMANO FAWWAD Not Available Start: 03-30-2023 End: 03-30-2023 ambulatory ROMANO FAWWAD Not Available Start: 01-31-2023 End: 01-31-2023 ambulatory SHAIKH SHIRA Not Available Start: 12-20-2021 End: 12-20-2021 ambulatory William Warner Facility:[facility] Start: 12-20-2021 End: 12-20-2021 Admission to same day surgery center DO William House Work Phone: [facility] [place] Start: 12-20-2021 End: 12-20-2021 ambulatory DO William House Work Phone: [facility] Work Phone: Start: 12-16-2021 End: 12-16-2021 ambulatory Elie Corona Facility:[facility] Start: 12-16-2021 End: 12-16-2021 ambulatory DO William Warner Work Phone: [facility] Work Phone: Start: 12-16-2021 End: 12-16-2021 Patient encounter procedure DO William Warner Work Phone: [facility] Start: 12-10-2021 End: 12-10-2021 ambulatory Elie Thompson Facility:[facility] Start: 12-10-2021 End: 12-10-2021 Patient encounter procedure DO William Warner Work Phone: [facility] Start: 11-27-2020 End: 11-28-[address] WILLIAM WARNER Facility:[facility] Start: 10-26-2020 End: 10-28-2020 Evaluation and management of inpatient DR AMANDA PAIGE Facility:[facility] Start: 10-17-2020 End: 10-17-2020 ambulatory JOHANN MARTINEZ Facility:[facility] Start: 01-21-2020 End: 01-22-[address] WILLIAM WARNER Facility:[facility] Start: 04-24-2017 End: 04-25-2017 Ambulatory ADRIAN CRENSHAW [facility] Procedures Date Procedure Procedure Detail Performing Clinician Start: 12-20-2021 Repair of umbilical hernia DO William Chavez Work Phone: Start: 04-24-2017 SEMEN ANALYSIS ADRIAN NARVAEZ SER Start: 04-24-2017 SEMEN MORPHOLOGY ADRIAN MONTIEL SARS Antigen (LFIA) DO Charl es House Work Phone: Plan of Treatment Date Care Activity Detail Author Start: 12-20-2021 End: 12-20-2021 [facility] Immunizations Immunization Date Immunization Notes Care Provider Fa cility 03-06-2021 COVID-19 mRNA-1273 (Moderna) DO William House Work Phone: [facility] 06-03-2020 COVID-19 mRNA-1273 (Moderna) DO William House Work Phone: [facility] 05-06-2020 COVID-19 mRNA-1273 (Moderna) DO William House Work Phone: [facility] Payers Date Payer Category Payer Unknown [id number] 2014 Unknown [id number] 1965 Unknown [id number] 2.16.84 [id number] 1964 Unknown [id number] 2.16.84 [id number] 1964 Unknown [id number] 2.16.84 [id number] 1964 Unknown [id number] 2.16.84 [id number] 1964 Unknown [id number] 2.16.84 [id number] 1964 Unknown [id number] 2.16.84 [id number] 1964 Unknown [id number] [id number] 1960 Self-pay 1960 Unknown [id number] Unknown O [id number] Unknown [id number] 2.16.8 [id number] Unknown [id number] 2.16.8 [id number] Unknown [id number] 2.16.8 [id number] Social History Date Type Detail Facility Start: 12-10-2021 End: 12-20-2021 Tobacco smoking status NHIS Smoker (finding) [facility] Start: 1965 Sex Assigned At Male [facility] Goals Date Patient Goal Desired Activity /State Evaluation note Note Date & Type Note Facility Evaluation note No assessment information availa ble [facility] Work Phone: Summary Purpose Family History No Family History Records Found Relationship Condition Age at Onset Recorded Date/T robbin Not Specified Chronic obstructive pulmonary disease Un known Current smoker Unknown Unknown father Chronic obstructive pulmonary disease Unk nown Advance Directives No Advanced Directives Records Found Advance Directive Response Recorded Date/ Time Advance Directives No December 08, 2021 9:45am Chief Complaint and Reason for Visit Chief Complaint Umbilical Hernia Umbilical Hernia Chief Complaint Umbilical Hernia Umbilical Hernia Umbilical Hernia Additional Source Comments (unrecognized sect ion and content) No Status Records FoundNo Status Records FoundNo Status Records FoundNo Status Records Found INFORMATION SOURCE (unrecogn ized section and content) DATE CREATED AUTHOR 07/28/2017 [facility] DATE CREATED AUTHOR AUTHOR'S ORGANIZ ATION 12/05/2020 [facility] DATE CREATED AUTHOR AUTHOR'S ORGANIZ ATION 03/12/2022 [facility] DATE CREATED AUTHOR AUTHOR'S ORGANIZ ATION 04/25/2023 [facility] [employer] Care Teams (unrecognized sec tion and content) Team Status: Inactive Member Role Status Dates Elie Thompson DO Attending Provider Active William Warner DO Primary Care Provider Active Team Status: Active Member Role Status Dates William Warner , Primary Care Provider Active Goals (unrecognized section and content) Goals may be documented in a n alternate section FOR RECORDS PERTAINING TO PATIENTS WHO ARE OR HAVE BEEN ENROLLED IN A CHEMICAL DEPENDENCY/SUBSTANCEABUSE PROGRAM, SOME INFORMATION MAY BE OMITTED. This clinical summary was aggregated from multiple sources. Caution should be exercised in using it in the provision of clinical care. This summary normalizes information from multiple sources, and as a consequence, information in this document may materially change the coding, format and clinical context of patient data. In addition, data may be omitted in some cases. CLINICAL DECISIONS SHOULD BE BASED ON THE PRIMARY CLINICAL RECORDS. [facility] provides no warranty or guarantee of the accuracy or completeness of information in this document.
== END 2023-05-04 13:56 | disposition home or self-care (01) ==
LOC: CARD 13:55
PROVIDERS: PCP Internal Medicine; Visit Provider Internal Medicine
DX: R09.89 Other specified symptoms and signs involving the circulatory and respiratory systems (principal)
CPT/HCPCS: 93306

== ENCOUNTER 2023-05-26 14:33 | Outpatient (OUT) | payer BC, SELFPAY ==
[2023-05-26 14:54] LABS: Hemoglobin 16.2 g/dL (14.0-18.0)
[2023-05-26 15:36] LABS: Prostate Specific Antigen Dx 0.37 ng/mL (<=4.00)
[2023-05-27 11:09] LABS: Testosterone 775 ng/dL (264-916)
== END 2023-05-26 14:34 | disposition home or self-care (01) ==
LOC: LAB 14:34
PROVIDERS: PCP Internal Medicine; Visit Provider Internal Medicine
DX: E29.1 Testicular hypofunction (principal); N52.9 Male erectile dysfunction, unspecified
CPT/HCPCS: 36415; 84153; 84403; 85018

== ENCOUNTER 2024-01-09 07:32 | Outpatient (OUT) | payer BC, SELFPAY ==
--- OUTSIDE RECORDS SUMMARY | 2024-01-09 07:36 | XMS_ITS | CCD ---
Author Organization [facility] Care Team Providers Care Nursing Home Director Name Role Phone ADRIAN CRENSHAW Unavailable Unavailable GRECIA, DR AMANDA Ayoub Consulting Unavailable TIFF, DR JAYME Whittington Admitting Unavailable ALANA, DR SANTIAGO Primary Care Unavailable TIFF, DR JAYME Whittington Attending Unavailable TIFF, DR JAYME Whittington Consulting Unavailable Lukasz, John Consulting Unavailable IRONTON, DR SANTIAGO Attending Unavailable HOUSE, DR SANTIAGO Consulting Unavailable IRONTON, DR SANTIAGO Primary Care Unavailable HOUSE, DR SANTIAGO Admitting Unavailable ZIEBER, DR CHERIE Ayoub Consulting Unavailable HOUSE, DR SANTIAGO Consulting Unavailable IRONTON, DR SANTIAGO Primary Care Unavailable HOUSE, DR SANTIAGO Admitting Unavailable HOUSE, DR SANTIAGO Attending Unavailable GRECHOBINNA, JOHANN JOVEL Consulting Unavailable PAY, DR JOHANSEN Admitting Unavailable HOUSE, DR SANTIAGO Primary Care Unavailable PAY, DR JOHANSEN Attending Unavailable AHMED, GINNY Consulting Unavailable DO Elie Thompson Attending Provider DO William Warner Primary Care Provider William Warner Primary Care Unavailable Elie Thompson Attending Unavailable Elie Thompson Admitting Unavailable Elie Thompson Admitting Unavailable Elie Thompson Attending Unavailable Alana, William Primary Care Unavailable Elie Thompson Admitting Unavailable Elie Thompson Attending Unavailable William Warner Primary Care Unavailable SHAIKH ANG Attending Unavailable SHAIKH ANG Attending Unavailable SHAIKH ANG Attending Unavailable SHAIKH ANG Attending Unavailable MANJULA VELEZ Attending Shauna Warner MD, William Duke Unavailable [phone] Sav SANDOVAL, Unavailable Jayme Barnett MD Primary Care Provider Rosie HERNANDES, Manjula Unavailable Medications Current Medications Medication Drug Class(es) Dates Sig (Normalized) Sig (Original) hydroCHLOROthiazide 25 mg / lisinopril 20 mg oral tablet (2 sources) Thiazide Diuretic, Angiotensin Converting Enzyme Inhibitor Start: 2 take 1 tablet by mouth once daily Lisinopril-[place] chlorothiazide Active 1 TAB PO Daily December 09, 2021 11:00pm hydroCHLOROthiazide 25 mg / losartan potassium 100 mg oral tablet (1 source) Thiazide Diuretic, Angiotensin 2 Receptor Gorge Start: 4 End: 4 take 1 tablet by mouth once daily losartan-hydroCH LOROthiazide (Hyzaar) 100-25 MG tablet Indications: Primary hypogonadism in male , Bilateral lower extremity edema Take 1 tablet by mouth Daily 90 tablet 1 2023 01/23/2024 Active lisinopril 10 mg oral tablet (1 source) Angiotensin Converting Enzyme Inhibitor take 1 tablet by mouth once daily lisinopril 10 MG tablet Take 10 mg by mouth Daily Active sildenafil 100 mg oral tablet (1 source) Phosphodiesterase 5 Inhibitor Start: 4 take 1 tablet by mouth once daily as needed sildenafil (Viagra) 100 MG tablet Indications: Erectile dysfunction due to diseases classified elsewhere Take 1 tablet (100 mg) by mouth Daily as needed for erectile dysfunction 90 tablet 09/28/2023 Active testosterone enanthate 200 mg/ml injectable solution (1 source) Androgen testosterone enanthate (Delatestryl) 200 MG/ML injection Indications: Male Hypogonadism Inject 75 mg into the shoulder, thigh, or buttocks every 14 (fourteen) days Active traMADol hydrochloride 50 mg oral tablet (1 source) Opioid Agonist Start: 2 take 50 mg by mouth every six hours Tramadol Active 50 MG PO Q6H 30 7 December 20, 2021 12:00am Problems Active Problems Problem Classification Problem Date Documented Da te Episodic/Chronic Abdominal pain (4 sources) Unspecified abdominal pain; Translations: [UNSPECIFIED ABDOMINAL PAIN] Onset: 10-20-2020 Episodic Alcohol-related disorders (2 sources) Alcohol abuse, uncomplicated; Translations: [Nondependent alcohol abuse in remission] Onset: 11-04-2020 01-31-2023 Chronic Essential hypertension (6 sources) Essential (primary) hypertension; Translations: [Hypertensive disorder] Onset: 01-21-2020 Chronic Other aftercare (1 source) Other jail (current) drug therapy; Translations: [OTH HALF-WAY CURRENT DRUG THERAPY] Onset: 11-04-2020 Episodic Other endocrine disorders (1 source) Testicular hypofunction; Translations: [Testicular hypofunction] Onset: 01-31-2023 01-31-2023 Chronic Other gastrointestinal disorders (1 source) Constipation, unspecified; Translations: [CONSTIPATION UNSPECIFIED] Onset: 11-04-2020 Episodic Other male genital disorders (1 source) Male erectile dysfunction, unspecified; Translations: [Impotence of organic origin] Onset: 01-31-2023 01-31-2023 Chronic Other nutritional; endocrine; and metabolic disorders [...] Date Documented Da te Episodic/Chronic Abdominal hernia (3 sources) Umbilical hernia; Translations: [Umbilical hernia without obstruction or gangrene] Onset: 12-20-2021 Resolved: 01-31-2023 12-20-2021 Episodic Other circulatory disease (1 source) Suspected heart failure; Translations: [Other specified symptoms and signs involving the circulatory and respiratory systems] Onset: 03-30-2023 Resolved: 05-25-2023 05-25-2023 Episodic Other ear and sense organ disorders (1 source) Wax in ear canal; Translations: [Impacted cerumen, left ear] Onset: 09-30-2023 09-30-2023 Episodic Other male genital disorders (1 source) Oligospermia; Translations: [OLIGOSPERMIA] Onset: 04-24-2017 Episodic Residual codes; unclassified (1 source) Bilateral lower limb edema; Translations: [Localized edema] Onset: 03-30-2023 03-30-2023 Episodic Results Test Name Value Interpretation Reference Range Facility [facility] 12-20-2021 L - -------- Specimen: [id number] Received: 12/20/21 Status: NEHA Holbrook Num: [id number] Spec Type: Surgical Subm Dr: Elie Thompson DO Tissues: A Hernia Sac (HERNIA CONTENTS) Procedures: BEATRICE, Gross/Medardo L2 -------- Age/ Patient Sex Location Account Attending Physician -------- JesseYariel ritchie Sami 56/M DC [id number] Elie Thompson DO -------- SPEC NUM: [id number] RECD: 12/20/21 STATUS: NEHA HOLBROOK NUM: [id number] KERRY: 12/20/21 DR: Elie Thompson DO ENTERED: 12/20/[address]: OLIVER TYPE: Surgical DEPT: S ORDERED: HE, Gross/Micro [...] the yellow, lobular tissue is yellow-cassidy, lobular.. [employer] Supervisor sections are submitted in one cassette labeled A1. Microscopic Description One glass slide with H E stained material has been examined. The microscopic findings support the above pathologic diagnosis. CPT Codes 80418 -------- -------- Specimen: [id number] Received: 12/20/21 Status: NEHA Holbrook Num: [id number] Spec Type: Surgical Subm Dr: Elie Thompson,DO Tissues: A Hernia Sac (HERNIA CONTENTS) Procedures: HE, Gross/Micro L2 -------- Patient: Yariel Molina Sami [id number] (Continued) -------- Signed (signature on file) Ursula Vicente MD 12/21/21 1416 [facility] COVID-19 Antigenon 2 COVID-19 Antigen Healthcare [...] developed and its performance characteristic determined by [employer] and validated at [facility]. This test has not been FDA cleared [...] for SARS Antigen by LONG PERFORMED BY: [place] [address] PATHOLOGIST [employer] WILBER HUNTLEY M.D. Normal [facility] Comment on above: Performed By: #### C OVID-19 VALERIA, SOFIANEG #### [address] COVID-19 SOFIAOrdered By: Johann Thompson on 12-16-2021 SARS-CoV+SARS-CoV-2 (COVID-19) Ag IA.rapid Ql (Resp) Negative Negative [facility] Comment on above: This is a duplicate Valeria SARS Antigen (LONG) result to be used for statistical tracking purpose only. No Panel InformationOrdered By: Elie Thompson on 12-16-2021 SARS Antigen (LFIA) [facility] Valeria Ag Negativeon 12-17-19 22 Valeria Ag Negative Negative Normal Negative [facility] Comment on above: Result Comment: This is a duplicate Valeria SARS Antigen (LONG) result to be used for statistical tracking purpose only. PERFORMED BY: [place] [address] PATHOLOGIST [employer] WILBER HUNTLEY M.D. Performed By: #### C OVID-19 VALERIA, SOFIANEG #### [address] Basic Metabolic Panelon 11-0 Anion gap [Moles/Vol] 15.3 mmol/L High 6.0-15.0 [facility] Comment on above: Performed By: #### B MP #### [address] Calcium [Mass/Vol] 9.3 mg/dL Normal 8.2-10.2 [facility] Comment on above: Result Comment: PERF ORMED BY: [place] [address] PATHOLOGIST [employer] WILBER HUNTLEY M.D. Performed By: #### B MP #### [address] Chloride [Moles/Vol] 99 mmol/L Normal 95-114 [facility] Comment on above: Performed By: #### B MP #### [address] CO2 [Moles/Vol] 23.8 mmol/L Normal 22.0-30.0 [facility] Comment on above: Performed By: #### B MP #### [address] Creatinine [Mass/Vol] 0.80 mg/dL Normal 0.64-1.27 [facility] Comment on above: Performed By: #### B MP #### [address] Estimated GFR ( Ellie > 60 [facility] Comment on above: Result Comment: GFR estimated reference range: According to KDOQI guidelines, <60 ml/min/1.73m2 is sufficient to diagnose a patient with chronic kidney disease. Performed By: #### B MP #### [address] Estimated GFR (Non- Am > 60 Normal [facility] Comment on above: Performed By: #### B MP #### [facility] [address] Glucose [Mass/Vol] 95 mg/dL Normal 70-100 [facility] Comment on above: Result Comment: [place] Glucose Reference Range is dependent on time and content of last meal. Glucose of more than 200 mg/dL in a nonstressed, ambulatory subject supports the diagnosis of Diabetes Mellitus. ADA recommended reference range Performed By: #### B MP #### [facility] [address] Potassium [Moles/Vol] 4.1 mmol/L Normal 3.5-5.1 [facility] Comment on above: Performed By: #### B MP #### [address] Sodium [Moles/Vol] 134 mmol/L Low 136-146 [facility] Comment on above: Performed By: #### B MP #### [facility] [address] Urea nitrogen [Mass/Vol] 15 mg/dL Normal 9-23 [facility] Comment on above: Performed By: #### B MP #### [address] Basophils Auto (Bld) [#/Vol] Ordered By: Elie Thompson on 12-10-2021 Basophils (Bld) [#/Vol] 0.1 10*3/uL 0.0-0.2 [facility] Basophils/100 WBC Auto (Bld) Ordered By: Elie Thompson on 12-10-2021 Basophils/100 WBC (Bld) 1.0 % . [facility] Complete Blood Count Auto Di ffon 12-10-2021 Basophils (Bld) [#/Vol] 0.1 10*3/uL Normal 0.0-0.2 [facility] Comment on above: Result Comment: PERF ORMED BY: [place] [address] PATHOLOGIST [employer] WILEBR HUNTLEY M.D. Performed By: #### C BC #### [facility] [address] Basophils/100 WBC (Bld) 1.0 % Normal . [facility] Comment on above: Performed By: #### C BC #### [address] Eosinophils (Bld) [#/Vol] 0.2 10*3/uL Normal 0.0-0.45 [facility] Comment on above: Performed By: #### C BC #### [address] Eosinophils/100 WBC (Bld) 2.2 % Normal . [facility] Comment on above: Performed By: #### C BC #### [address] Erythrocyte distribution width (RBC) [Ratio] 12.6 % Normal 12.0-14.8 [facility] Comment on above: Performed By: #### C BC #### [address] Hematocrit (Bld) [Volume fraction] 44.5 % Normal 38.8-50.0 [facility] Comment on above: Performed By: #### C BC #### [address] Hemoglobin (Bld) [Mass/Vol] 15.2 g/dL Normal 13.0-17.0 [facility] Comment on above: Performed By: #### C BC #### [address] Lymphocytes (Bld) [#/Vol] 3.0 10*3/uL Normal 1.00-4.8 [facility] Comment on above: Performed By: #### C BC #### [address] Lymphocytes/100 WBC (Bld) 29.3 % Normal . [facility] Comment on above: Performed By: #### C BC #### [address] MCH (RBC) [Entitic mass] 31.4 pg Normal 27.5-35.2 [facility] Comment on above: Performed By: #### C BC #### [facility] [address] MCV (RBC) [Entitic vol] 92.0 fL Normal 83.5-101 [facility] Comment on above: Performed By: #### C BC #### [facility] [address] Mean Corpuscular HGB Conc 34.1 g/dL Normal 32.5-35.6 [facility] Comment on above: Performed By: #### C BC #### [address] Monocytes (Bld) [#/Vol] 1.1 10*3/uL High 0.0-0.8 [facility] Comment on above: Performed By: #### C BC #### [address] Monocytes/100 WBC (Bld) 10.6 % Normal . [facility] Comment on above: Performed By: #### C BC #### [address] Neutrophils (Bld) [#/Vol] 5.7 10*3/uL Normal 1.8-7.7 [facility] Comment on above: Performed By: #### C BC #### [address] Neutrophils/100 WBC (Bld) 56.9 % Normal . [facility] Comment on above: Performed By: #### C BC #### [address] Nucleated RBC/100 WBC (Bld) [Ratio] 0.0 % Normal 0-0.5 [facility] Comment on above: Performed By: #### C BC #### [address] Platelet mean volume (Bld) [Entitic vol] 8.7 fL Normal 6.6-10.1 [facility] Comment on above: Performed By: #### C BC #### [facility] [address] [place] [address] [place] Platelets (Bld) [#/Vol] 265 10*3/uL Normal 150-450 [facility] Comment on above: Performed By: #### C BC #### [facility] [address] [place] [address] [place] RBC (Bld) [#/Vol] 4.83 10*6/uL Normal 3.90-5.60 [facility] Comment on above: Performed By: #### C BC #### [facility] [address] WBC (Bld) [#/Vol] 10.1 10*3/uL Normal 4.5-11.0 [facility] Comment on above: Performed By: #### C BC #### [facility] [address] Creatinine and Glomerular fi ltration rate.predicted panel (S/P/Bld)Ordered By: Elie Thompson on 12-10-2021 Creatinine [Mass/Vol] 0.80 mg/dL 0.64-1.27 [facility] ECG 12 lead ECGon 12-10-2021 ECG 12 lead ECG [facility] [place] [address] [place] [address] Electrocardiograph Report Signed Patient: Yariel Molina MR#: [id number] 69 : 1965 Acct:[id number] Age/Sex: 56 / M ADM Date: 12/10/21 Loc: PS Room: Type: [facility] Attending Dr: Elie Thompson [...] previous ECGs available Confirmed by NASH SANDOVAL [facility], MARKOS ([id number]) on 12/10/2021 2:47:23 PM Referred By: CORONA Electronically Signed By:MARKOS BASS MD [facility] Transcribed By: JESSICA Signed By Markos Bass MD, [facility] 12/10/21 1447 Normal [facility] Eosinophils Auto (Bld) [#/Vo l]Ordered By: Elie Thompson on 12-10-2021 Eosinophils (Bld) [#/Vol] 0.2 10*3/uL 0.0-0.45 [facility] Eosinophils/100 WBC Auto (Bl d)Ordered By: Elie Thompson on 12-10-2021 Eosinophils/100 WBC (Bld) 2.2 % . [facility] Erythrocyte distribution wid th Auto (RBC) [Ratio]Ordered By: Elie Thompson on 12-10-2021 Erythrocyte distribution width (RBC) [Ratio] 12.6 % 12.0-14.8 [facility] Estimated glomerular filtrat ion rate (GFR) non- AmericanOrdered By: Elie Thompson on 12-10-2021 GFR/1.73 sq M.predicted among non-blacks MDRD (S/P/Bld) [Vol rate/Area] > 60 mL/Min [facility] Hematocrit Auto (Bld) [Volum e fraction]Ordered By: Elie Thompson on 12-10-2021 Hematocrit (Bld) [Volume fraction] 44.5 % 38.8-50.0 [facility] Hemoglobin [Mass/volume] in BloodOrdered By: Eile Thompson on 12-10-2021 Hemoglobin (Bld) [Mass/Vol] 15.2 g/dL 13.0-17.0 [facility] Laboratory - Hematology and Cell countsOrdered By: Elie Thompson on 12-10-2021 Nucleated RBC/100 WBC (Bld) [Ratio] 0.0 % 0-0.5 [facility] Leukocytes [#/volume] in Blo od by Automated countOrdered By: Elie Thompson on 12-10-2021 WBC (Bld) [#/Vol] 10.1 10*3/uL 4.5-11.0 [facility] Lymphocytes Auto (Bld) [#/Vo l]Ordered By: Elie Thompson on 12-10-2021 Lymphocytes (Bld) [#/Vol] 3.0 10*3/uL 1.00-4.8 [facility] Lymphocytes/100 WBC Auto (Bl d)Ordered By: Elie Thompson on 12-10-2021 Lymphocytes/100 WBC (Bld) 29.3 % . [facility] MCH Auto (RBC) [Entitic mass ]Ordered By: Elie Thompson on 12-10-2021 MCH (RBC) [Entitic mass] 31.4 pg 27.5-35.2 [facility] MCHC Auto (RBC) [Mass/Vol]Or dered By: Elie Thompson on 12-10-2021 MCHC (RBC) [Mass/Vol] 34.1 g/dL 32.5-35.6 [facility] MCV Auto (RBC) [Entitic vol] Ordered By: Elie Thompson on 12-10-2021 MCV (RBC) [Entitic vol] 92.0 fL 83.5-101 [facility] Monocytes Auto (Bld) [#/Vol] Ordered By: Elie Thompson on 12-10-2021 Monocytes (Bld) [#/Vol] 1.1 10*3/uL 0.0-0.8 [facility] Monocytes/100 WBC Auto (Bld) Ordered By: Elie Thompson on 12-10-2021 Monocytes/100 WBC (Bld) 10.6 % . [facility] Neutrophils Auto (Bld) [#/Vo l]Ordered By: Elie Thompson on 12-10-2021 Neutrophils (Bld) [#/Vol] 5.7 10*3/uL 1.8-7.7 [facility] Neutrophils/100 WBC Auto (Bl d)Ordered By: Elie Thompson on 12-10-2021 Neutrophils/100 WBC (Bld) 56.9 % . [facility] No Panel InformationOrdered By: Elie Thompson on 12-10-2021 Estimated GFR () > 60 mL/Min [facility] Comment on above: GFR estimated refere nce range: According to KDOQI guidelines, <60 ml/min/1.73m2 is sufficient to diagnose a patient with chronic kidney disease. Pharmacy Creatinine Clearance (Chem N/A [facility] Platelet mean volume Auto (B ld) [Entitic vol]Ordered By: Elie Thompson on 12-10-2021 Platelet mean volume (Bld) [Entitic vol] 8.7 fL 6.6-10.1 [facility] Platelets Auto (Bld) [#/Vol] Ordered By: Elie Thompson on 12-10-2021 Platelets (Bld) [#/Vol] 265 10*3/uL 150-450 [facility] RBC Auto (Bld) [#/Vol]Ordere d By: Elie Thompson on 12-10-2021 RBC (Bld) [#/Vol] 4.83 10*6/uL 3.90-5.60 [facility] Serum or plasma anion gap de terminationOrdered By: Elie Thompson on 12-10-2021 Anion gap [Moles/Vol] 15.3 mmol/L 6.0-15.0 [facility] Serum or plasma calcium lyla urement (mass/volume)Ordered By: Elie Thompson on 12-10-2021 Calcium [Mass/Vol] 9.3 mg/dL 8.2-10.2 [facility] Serum or plasma chloride john surement (moles/volume)Ordered By: Elie Thompson on 12-10-2021 Chloride [Moles/Vol] 99 mmol/L 95-114 [facility] Serum or plasma glucose lyla urement (mass/volume)Ordered By: Elie Thompson on 12-10-2021 Glucose [Mass/Vol] 95 mg/dL 70-100 [facility] Comment on above: ADA recommended refe rence rangeRandom Glucose Reference Range is dependent on time and content of last meal. Glucose of more than 200 mg/dL in a nonstressed, ambulatory subject supports the diagnosis of Diabetes Mellitus. Serum or plasma potassium me asurement (moles/volume)Ordered By: Elie Thompson on 12-10-2021 Potassium [Moles/Vol] 4.1 mmol/L 3.5-5.1 [facility] Serum or plasma sodium measu rement (moles/volume)Ordered By: Elie Thompson on 12-10-2021 Sodium [Moles/Vol] 134 mmol/L 136-146 [facility] Serum or plasma total carbon dioxide measurement (moles/volume)Ordered By: Elie Thompson on 12-10-2021 CO2 [Moles/Vol] 23.8 mmol/L 22.0-30.0 [facility] Serum or plasma urea nitroge n measurement (mass/volume)Ordered By: Elie Thompson on 12-10-2021 Urea nitrogen [Mass/Vol] 15 mg/dL 9- [facility] [place] HEPATOBILIARY SCAN W EFon 11-27-2020 NM [...] by: CHERIE RIGGS Date: 2020-11-27 10:46 Normal [facility] AMYLASEon 10-28-2020 Amylase [Catalytic activity/Vol] 42 U/L Normal 31-110 [facility] Comment on above: Performed By: #### C MP, JAMES, LIPA #### [facility] [address] [place], [place] [address] Dr. Nathalia Banda CBC AUTO DIFFon 10-28-2020 BASO # 0.1 103/ul Normal 0.0-0.1 [facility] Comment on above: Performed By: #### C BC #### [facility] [address] [place], [place] [address] Dr. Nathalia Banda Basophils/100 WBC (Bld) 0.7 % Normal 0.2-2.0 [facility] Comment on above: Performed By: #### C BC #### [facility] [address] [place] [address] Dr. Nathalia Banda EO # 0.4 103/ul Normal 0.0-0.7 [facility] Comment on above: Performed By: #### C BC #### [facility] [address] [place] [address] Dr. Nathalia Banda Eosinophils/100 WBC (Bld) 3.6 % Normal 0.9-7.0 [facility] Comment on above: Performed By: #### C BC #### [facility] [address] [place] [address] Dr. Nathalia Banda Erythrocyte distribution width (RBC) [Ratio] 11.3 % Normal 11.0-15.0 [facility] Comment on above: Performed By: #### C BC #### [facility] [address] [place] [address] Dr. Nathalia Banda Hematocrit (Bld) [Volume fraction] 39.0 % Critically low 42.0-54.0 [facility] Comment on above: Performed By: #### C BC #### [facility] [address] [place] [address] Dr. Nathalia Banda Hemoglobin (Bld) [Mass/Vol] 13.3 g/dL Critically low 14.0-18.0 [facility] Comment on above: Performed By: #### C BC #### [facility] [address] [place] [address] Dr. Nathalia Banda IG # 0.07 10e3/ul Critically high 0.00-0.03 [facility] Comment on above: Performed By: #### C BC #### [facility] [address] [place] [address] Dr. Nathalia Banda IG % 0.7 % Critically high 0.0-0.5 [facility] Comment on above: Performed By: #### C BC #### [facility] [address] [place] [address] Dr. Nathalia Banda LYMPH # 2.2 103/ul Normal 1.2-3.8 [facility] Comment on above: Performed By: #### C BC #### [facility] [address] [place] [address] Dr. Nathalia Banda Lymphocytes/100 WBC (Bld) 23.1 % Normal 20.5-60.0 [facility] Comment on above: Performed By: #### C BC #### [facility] [address] [place] [address] Dr. Nathalia Banda MANUAL DIFF REQ NO Normal [facility] Comment on above: Performed By: #### C BC #### [facility] [address] [place] [address] Dr. Nathalia Banda MCH (RBC) [Entitic mass] 30.6 pg Normal 25.9-34.0 [facility] Comment on above: Performed By: #### C BC #### [facility] [address] [place] [address] Dr. Nathalia Banda MCHC (RBC) [Mass/Vol] 34.1 g/dL Normal 29.9-35.2 [facility] Comment on above: Performed By: #### C BC #### [facility] [address] [place] [address] Dr. Nathalia Banda MCV (RBC) [Entitic vol] 89.7 fL Normal 80.0-94.0 [facility] Comment on above: Performed By: #### C BC #### [facility] [address] [place] [address] Dr. Nathalia Banda MONO # 1.2 103/ul Critically high 0.3-0.8 [facility] Comment on above: Performed By: #### C BC #### [facility] [address] [place] [address] Dr. Nathalia Banda Monocytes/100 WBC (Bld) 12.5 % Critically high 1.7-12. 0 [facility] Comment on above: Performed By: #### C BC #### [facility] [address] [place] [address] Dr. Nathalia Banda NEUT # 5.7 103/ul Normal 1.4-6.5 [facility] Comment on above: Performed By: #### C BC #### [facility] [address] [place] [address] Dr. Nathalia Banda Neutrophils/100 WBC (Bld) 59.4 % Normal 43.0-75.0 [facility] Comment on above: Performed By: #### C BC #### [facility] [address] [place] [address] Dr. Nathalia Banda Platelet mean volume (Bld) [Entitic vol] 10.2 fL Normal 9.5-13.5 [facility] Comment on above: Performed By: #### C BC #### [facility] [address] [place] [address] Dr. Nathalia Banda PLT 288 103/ul Normal 150-450 [facility] Comment on above: Performed By: #### C BC #### [facility] [address] [place] [address] Dr. Nathalia Banda RBC 4.35 106/ul Critically low 4.70-6.10 [facility] Comment on above: Performed By: #### C BC #### [facility] [address] [place] [address] Dr. Nathalia Banda WBC 9.6 103/ul Normal 4.0-11.0 [facility] Comment on above: Performed By: #### C BC #### [facility] [address] [place] [address] Dr. Nathalia Banda LIPASEon 10-28-2020 Lipase [Catalytic activity/Vol] 356.0 U/L Critically high 23.0-300.0 [facility] Comment on above: Performed By: #### C MP, JAMES, LIPA #### [facility] [address] [place] [address] Dr. Nathalia Banda PROF 14(COMP METB)on Albumin [Mass/Vol] 2.4 g/dL Critically low 3.5-5.0 [facility] Comment on above: Performed By: #### L IPA, CMP #### [facility] [address] [id number] [place] Albumin/Globulin [Mass ratio] 0.5 {ratio} Normal [facility] Comment on above: Performed By: #### L IPA, CMP #### [facility] [address] [place] [address] [place] ALP [Catalytic activity/Vol] 71 U/L Normal 38-126 [facility] Comment on above: Performed By: #### L IPA, CMP #### [facility] [address] [address] [place] ALT [Catalytic activity/Vol] 17 U/L Critically low 21-72 [facility] Comment on above: Performed By: #### L IPA, CMP #### [facility] [address] [place] [address] [place] Anion gap [Moles/Vol] 12.2 mmol/L Normal [facility] Comment on above: Performed By: #### L IPA, CMP #### [facility] [address] [place] [address] [place] AST [Catalytic activity/Vol] 9 U/L Critically low 17-59 [facility] Comment on above: Performed By: #### L IPA, CMP #### [facility] [address] [place] [address] [place] Bilirubin [Mass/Vol] 0.4 mg/dL Normal 0.2-1.3 [facility] Comment on above: Performed By: #### L IPA, CMP #### [facility] [address] [place], [place] [id number] [place] Calcium [Mass/Vol] 8.7 mg/dL Normal 8.4-10.2 [facility] Comment on above: Performed By: #### L IPA, CMP #### [facility] [address] [place], [place] [id number] [place] Chloride [Moles/Vol] 102 mmol/L Normal 98-107 [facility] Comment on above: Performed By: #### L IPA, CMP #### [facility] [address] [place], [place] [address] [place] CO2 [Moles/Vol] 24.7 mmol/L Normal 22.0-30.0 [facility] Comment on above: Performed By: #### L IPA, CMP #### [facility] [address] [place], [place] [id number] [place] Creatinine [Mass/Vol] 0.77 mg/dL Normal 0.66-1.25 [facility] Comment on above: Performed By: #### L IPA, CMP #### [facility] [address] [place], [place] [id number] [place] EGFR-AF TUNISIAN >60 Normal >=60 [facility] Comment on above: Performed By: #### L IPA, CMP #### [facility] [address] [place], [place] [id number] [place] EGFR-NON AF TUNISIAN >60 Normal >=60 [facility] Comment on above: Performed By: #### L IPA, CMP #### [facility] [address] [place], [place] [id number] [place] Globulin (S) [Mass/Vol] 4.4 g/dL Normal [facility] Comment on above: Performed By: #### L IPA, CMP #### [facility] [address] [place] [address] [place] Glucose [Mass/Vol] 94 mg/dL Normal 74-106 [facility] Comment on above: Performed By: #### L IPA, CMP #### [facility] [address] [place] [address] [place] Potassium [Moles/Vol] 3.9 mmol/L Normal 3.4-5.0 [facility] Comment on above: Performed By: #### L IPA, CMP #### [facility] [address] [place], [place] [id number] [place] Protein [Mass/Vol] 6.8 g/dL Normal 6.1-8.2 [facility] Comment on above: Performed By: #### L IPA, CMP #### [facility] [address] [place], [place] [id number] [place] Sodium [Moles/Vol] 135 mmol/L Critically low 137-145 [facility] Comment on above: Performed By: #### L IPA, CMP #### [facility] [address] [place] [address] Edin Perez Urea nitrogen [Mass/Vol] 7.0 mg/dL Critically low 9.0-20. 0 [facility] Comment on above: Performed By: #### L IPA, CMP #### [facility] [address] [place] [address] Edin Perez Urea nitrogen/Creatinine [Mass ratio] 9.1 mg/mg Normal [facility] Comment on above: Performed By: #### L IPA, CMP #### [facility] [address] [place] [address] [place]in Perez AMYLASEon 10-27-2020 Amylase [Catalytic activity/Vol] 65 U/L Normal 31-110 [facility] Comment on above: Performed By: #### L IPA, CMP #### [facility] [address] [place] [address] Edin Perez CBC AUTO DIFFon 10-27-2020 BASO # 0.1 103/ul Normal 0.0-0.1 [facility] Comment on above: Performed By: #### C BC #### [facility] [address] [place] [address] Dr. Nathalia Banda Basophils/100 WBC (Bld) 0.7 % Normal 0.2-2.0 [facility] Comment on above: Performed By: #### C BC #### [facility] [address] [place] [address] Dr. Nathalia Banda EO # 0.3 103/ul Normal 0.0-0.7 [facility] Comment on above: Performed By: #### C BC #### [facility] [address] [place] [address] Dr. Nathalia Banda Eosinophils/100 WBC (Bld) 3.2 % Normal 0.9-7.0 [facility] Comment on above: Performed By: #### C BC #### [facility] [address] [place] [address] Dr. Nathalia Banda Erythrocyte distribution width (RBC) [Ratio] 11.4 % Normal 11.0-15.0 [facility] Comment on above: Performed By: #### C BC #### [facility] [address] [place] [address] Dr. Nathalia Banda Hematocrit (Bld) [Volume fraction] 41.0 % Critically low 42.0-54.0 [facility] Comment on above: Performed By: #### C BC #### [facility] [address] [place] [address] Dr. Nathalia Banda Hemoglobin (Bld) [Mass/Vol] 13.7 g/dL Critically low 14.0-18.0 [facility] Comment on above: Performed By: #### C BC #### [facility] [address] [place] [address] Dr. Nathalia Banda IG # 0.07 10e3/ul Critically high 0.00-0.03 [facility] Comment on above: Performed By: #### C BC #### [facility] [address] [place] [address] Dr. Nathalia Banda IG % 0.7 % Critically high 0.0-0.5 [facility] Comment on above: Performed By: #### C BC #### [facility] [address] [place] [address] Dr. Nathalia Banda LYMPH # 2.3 103/ul Normal 1.2-3.8 [facility] Comment on above: Performed By: #### C BC #### [facility] [address] [place] [address] Dr. Nathalia Banda Lymphocytes/100 WBC (Bld) 21.5 % Normal 20.5-60.0 [facility] Comment on above: Performed By: #### C BC #### [facility] [address] [place] [address] Dr. Nathalia Banda MANUAL DIFF REQ NO Normal [facility] Comment on above: Performed By: #### C BC #### [facility] [address] [place] [address] Dr. Nathalia Banda MCH (RBC) [Entitic mass] 30.7 pg Normal 25.9-34.0 [facility] Comment on above: Performed By: #### C BC #### [facility] [address] [place] [address] Dr. Nathalia Banda MCHC (RBC) [Mass/Vol] 33.4 g/dL Normal 29.9-35.2 [facility] Comment on above: Performed By: #### C BC #### [facility] [address] [place] [address] Dr. Nathalia Banda MCV (RBC) [Entitic vol] 91.9 fL Normal 80.0-94.0 [facility] Comment on above: Performed By: #### C BC #### [facility] [address] [place] [address] Dr. Nathalia Banda MONO # 1.5 103/ul Critically high 0.3-0.8 [facility] Comment on above: Performed By: #### C BC #### [facility] [address] [place] [address] Dr. Nathalia Banda Monocytes/100 WBC (Bld) 14.2 % Critically high 1.7-12. 0 [facility] Comment on above: Performed By: #### C BC #### [facility] [address] [place] [address] Dr. Nathalia Banda NEUT # 6.4 103/ul Normal 1.4-6.5 [facility] Comment on above: Performed By: #### C BC #### [facility] [address] [place] [address] Dr. Nathalia Banda Neutrophils/100 WBC (Bld) 59.7 % Normal 43.0-75.0 [facility] Comment on above: Performed By: #### C BC #### [facility] [address] [place] [address] Dr. Nathalia Banda Platelet mean volume (Bld) [Entitic vol] 9.9 fL Normal 9.5-13.5 [facility] Comment on above: Performed By: #### C BC #### [facility] [address] [place] [address] Dr. Nathalia Banda PLT 288 103/ul Normal 150-450 [facility] Comment on above: Performed By: #### C BC #### [facility] [address] [place] [address] Dr. Nathalia Banda RBC 4.46 106/ul Critically low 4.70-6.10 [facility] Comment on above: Performed By: #### C BC #### [facility] [address] [place] [address] Dr. Nathalia Banda WBC 10.6 103/ul Normal 4.0-11.0 [facility] Comment on above: Performed By: #### C BC #### [facility] [address] [place] [address] Dr. Nathalia Banda LIPASEon 10-27-2020 Lipase [Catalytic activity/Vol] 600.0 U/L Critically high 23.0-300.0 [facility] Comment on above: Performed By: #### L IPA, CMP #### [facility] [address] [place] [address] Edin Perez PROF 14(COMP METB)on 021 Albumin [Mass/Vol] 2.7 g/dL Critically low 3.5-5.0 [facility] Comment on above: Performed By: #### L IPA, CMP #### [facility] [address] [place], [place] [id number] [place] Albumin/Globulin [Mass ratio] 0.6 {ratio} Normal [facility] Comment on above: Performed By: #### L IPA, CMP #### [facility] [address] [place] [address] [place] ALP [Catalytic activity/Vol] 75 U/L Normal 38-126 [facility] Comment on above: Performed By: #### L IPA, CMP #### [facility] [address] [place], [place] [id number] [place] ALT [Catalytic activity/Vol] 20 U/L Critically low 21-72 [facility] Comment on above: Performed By: #### L IPA, CMP #### [facility] [address] [place], [place] [id number] [place] Anion gap [Moles/Vol] 14.4 mmol/L Normal [facility] Comment on above: Performed By: #### L IPA, CMP #### [facility] [address] [address] [place] AST [Catalytic activity/Vol] 10 U/L Critically low 17-59 [facility] Comment on above: Performed By: #### L IPA, CMP #### [facility] [address] [address] [place] Bilirubin [Mass/Vol] 0.4 mg/dL Normal 0.2-1.3 [facility] Comment on above: Performed By: #### L IPA, CMP #### [facility] [address] [place] [address] [place] Calcium [Mass/Vol] 8.9 mg/dL Normal 8.4-10.2 [facility] Comment on above: Performed By: #### L IPA, CMP #### [facility] [address] [address] [place] Chloride [Moles/Vol] 98 mmol/L Normal 98-107 [facility] Comment on above: Performed By: #### L IPA, CMP #### [facility] [address] [place] [address] [place] CO2 [Moles/Vol] 23.5 mmol/L Normal 22.0-30.0 [facility] Comment on above: Performed By: #### L IPA, CMP #### [facility] [address] [address] [place] Creatinine [Mass/Vol] 0.83 mg/dL Normal 0.66-1.25 [facility] Comment on above: Performed By: #### L IPA, CMP #### [facility] [address] [place], [place] [id number] [place] EGFR-AF TUNISIAN >60 Normal >=60 [facility] Comment on above: Performed By: #### L IPA, CMP #### [facility] [address] [address] [place] EGFR-NON AF TUNISIAN >60 Normal >=60 [facility] Comment on above: Performed By: #### L IPA, CMP #### [facility] [address] [id number] [place] Globulin (S) [Mass/Vol] 4.4 g/dL Normal T [facility] Comment on above: Performed By: #### L IPA, CMP #### [facility] [address] [id number] [place] Glucose [Mass/Vol] 90 mg/dL Normal 74-106 [facility] Comment on above: Performed By: #### L IPA, CMP #### [facility] [address] [id number] [place] Potassium [Moles/Vol] 3.9 mmol/L Normal 3.4-5.0 [facility] Comment on above: Performed By: #### L IPA, CMP #### [facility] [address] [place], [place] [id number] [place] Protein [Mass/Vol] 7.1 g/dL Normal 6.1-8.2 [facility] Comment on above: Performed By: #### L IPA, CMP #### [facility] [address] [id number] [place] Sodium [Moles/Vol] 132 mmol/L Critically low 137-145 [facility] Comment on above: Performed By: #### L IPA, CMP #### [facility] [address] [place], [place] [id number] [place] Urea nitrogen [Mass/Vol] 10.0 mg/dL Normal 9.0-20.0 [facility] Comment on above: Performed By: #### L IPA, CMP #### [facility] [address] [id number] [place] Urea nitrogen/Creatinine [Mass ratio] 12.0 mg/mg Normal [facility] Comment on above: Performed By: #### L IPA, CMP #### [facility] [address] [id number] [place] AMYLASEon 10-26-2020 Amylase [Catalytic activity/Vol] 121 U/L Critically high 31-110 [facility] Comment on above: Performed By: #### L IPA, CMP #### [facility] [address] [place] [address] Edin Perez Amylase [Catalytic activity/Vol] 160 U/L Critically high 31-110 [facility] Comment on above: Performed By: #### C BC #### [facility] [address] [place] [address] Dr. Nathalia Banda ASYMPTOMATIC COVID-19 ANTIGE Non 10-26-2020 EUA Statement SEE BELOW Normal [facility] Comment on above: Result Comment: This [...] sooner. Performed By: #### C BC #### [facility] [address] [place] [address] Dr. Nathalia Banda SARS-CoV-2 (COVID-19) RNA ZOHAIB+probe Ql (Unsp spec) Negative Normal NEGATIVE [facility] Comment on above: Result Comment: Nega tive results are presumptive. They do not preclude infection and should not be used as the sole basis for treatment decisions. Additional confirmatory testing by a molecular method should be considered. Performed By: #### C BC #### [facility] [address] [place] [address] Dr. Nathalia Banda CBC AUTO DIFFon 10-26-2020 BASO # 0.1 103/ul Normal 0.0-0.1 [facility] Comment on above: Performed By: #### C BC #### [facility] [address] [address] [address] Nathalia Banda Basophils/100 WBC (Bld) 0.4 % Normal 0.2-2.0 [facility] Comment on above: Performed By: #### C BC #### [facility] [address] [place] [address] Dr. Nathalia Banda EO # 0.3 103/ul Normal 0.0-0.7 [facility] Comment on above: Performed By: #### C BC #### [facility] [address] [place] [address] Dr. Nathalia Banda Eosinophils/100 WBC (Bld) 2.4 % Normal 0.9-7.0 [facility] Comment on above: Performed By: #### C BC #### [facility] [address] [place] [address] Dr. Nathalia Banda Erythrocyte distribution width (RBC) [Ratio] 11.5 % Normal 11.0-15.0 [facility] Comment on above: Performed By: #### C BC #### [facility] [address] [place] [address] Dr. Nathalia Banda Hematocrit (Bld) [Volume fraction] 41.5 % Critically low 42.0-54.0 [facility] Comment on above: Performed By: #### C BC #### [facility] [address] [place] [address] Dr. Nathalia Banda Hemoglobin (Bld) [Mass/Vol] 14.2 g/dL Normal 14.0-18.0 [facility] Comment on above: Performed By: #### C BC #### [facility] [address] [place] [address] Dr. Nathalia Banda IG # 0.08 10e3/ul Critically high 0.00-0.03 [facility] Comment on above: Performed By: #### C BC #### [facility] [address] [place] [address] Dr. Nathalia Banda IG % 0.7 % Critically high 0.0-0.5 [facility] Comment on above: Performed By: #### C BC #### [facility] [address] [address] [address] Nathalia Banda LYMPH # 2.4 103/ul Normal 1.2-3.8 [facility] Comment on above: Performed By: #### C BC #### [facility] [address] [place] [address] Dr. Nathalia Banda Lymphocytes/100 WBC (Bld) 21.0 % Normal 20.5-60.0 [facility] Comment on above: Performed By: #### C BC #### [facility] [address] [place] [address] Dr. Nathalia Banda MANUAL DIFF REQ NO Normal [facility] Comment on above: Performed By: #### C BC #### [facility] [address] [place] [address] Dr. Nathalia Banda MCH (RBC) [Entitic mass] 30.8 pg Normal 25.9-34.0 [facility] Comment on above: Performed By: #### C BC #### [facility] [address] [place] [address] Dr. Nathalia Banda MCHC (RBC) [Mass/Vol] 34.2 g/dL Normal 29.9-35.2 [facility] Comment on above: Performed By: #### C BC #### [facility] [address] [place] [address] Dr. Nathalia Banda MCV (RBC) [Entitic vol] 90.0 fL Normal 80.0-94.0 [facility] Comment on above: Performed By: #### C BC #### [facility] [address] [place] [address] Dr. Nathalia Banda MONO # 1.5 103/ul Critically high 0.3-0.8 [facility] Comment on above: Performed By: #### C BC #### [facility] [address] [place] [address] Dr. Nathalia Banda Monocytes/100 WBC (Bld) 12.8 % Critically high 1.7-12. 0 [facility] Comment on above: Performed By: #### C BC #### [facility] [address] [place] [address] Dr. Nathalia Banda NEUT # 7.2 103/ul Critically high 1.4-6.5 [facility] Comment on above: Performed By: #### C BC #### [facility] [address] [place] [address] Dr. Nathalia Banda Neutrophils/100 WBC (Bld) 62.7 % Normal 43.0-75.0 [facility] Comment on above: Performed By: #### C BC #### [facility] [address] [place] [address] Dr. Nathalia Banda Platelet mean volume (Bld) [Entitic vol] 10.0 fL Normal 9.5-13.5 [facility] Comment on above: Performed By: #### C BC #### [facility] [address] [place] [address] Dr. Nathalia Banda PLT 280 103/ul Normal 150-450 [facility] Comment on above: Performed By: #### C BC #### [facility] [address] [place] [address] Dr. Nathalia Banda RBC 4.61 106/ul Critically low 4.70-6.10 [facility] Comment on above: Performed By: #### C BC #### [facility] [address] [place] [address] Dr. Nathalia Banda WBC 11.5 103/ul Critically high 4.0-11.0 [facility] Comment on above: Performed By: #### C BC #### [facility] [address] [place] [address] Dr. Nathalia Banda CBC W MANUAL DIFFon 10-27-19 ATYPICAL LYMPH # Normal [facility] Comment on above: Performed By: #### C LUISMAN #### [facility] [address] [place] [address] Dr. Nathalia Banda ATYPICAL LYMPH % Normal [facility] Comment on above: Performed By: #### C VIN #### [facility] [address] [place] [address] Dr. Nathalia Banad BAND # Normal 0.0-0.3 [facility] Comment on above: Performed By: #### C VIN #### [facility] [address] [place] [address] Dr. Nathalia Banda BAND % Normal 0-5 [facility] Comment on above: Performed By: #### C VIN #### [facility] [address] [place] [address] Dr. Nathalia Banda BASOM # 0.00 103/ul Normal 0.00-0.10 [facility] Comment on above: Performed By: #### C VIN #### [facility] [address] [place] [address] Dr. Nathalia Banda BASOM % 0.0 % Critically low 0.2-2.0 [facility] Comment on above: Performed By: #### C VIN #### [facility] [address] [place] [address] Dr. Nathalia Banda BLAST # Normal [facility] Comment on above: Performed By: #### C VIN #### [facility] [address] [place] [address] Dr. Nathalia Banda BLAST % Normal [facility] Comment on above: Performed By: #### C VIN #### [facility] [address] [place] [address] Dr. Nathalia Banda CORRECTED WBC Normal 4.0-11.0 The [facility] Comment on above: Performed By: #### C VIN #### [facility] [address] [place] [address] Dr. Nathalia Banda EOS # 0.00 103/ul Normal 0.00-0.70 [facility] Comment on above: Performed By: #### C VIN #### [facility] [address] [place] [address] Dr. Nathalia Banda EOS% 0.0 % Critically low 0.9-7.0 The [facility] Comment on above: Performed By: #### C VIN #### [facility] [address] [place] [address] Dr. Nathalia Banda HCT 45.0 % Normal 42.0-54.0 [facility] Comment on above: Performed By: #### C VIN #### [facility] [address] [address] [address] Nathalia Banda HGB 15.3 g/dl Normal 14.0-18.0 [facility] Comment on above: Performed By: #### C VIN #### [facility] [address] [address] [address] Nathalia Banda LYMPHM # 2.03 103/ul Normal 1.20-3.80 [facility] Comment on above: Performed By: #### C VIN #### [facility] [address] [place] [address] Dr. Nathalia Banda LYMPHM% 14.0 % Critically low 20.5-60.0 The [facility] Comment on above: Performed By: #### C VIN #### [facility] [address] [place] [address] Dr. Nathalia Banda MCH 30.3 pg Normal 25.9-34.0 [facility] Comment on above: Performed By: #### C VIN #### [facility] [address] [place] [address] Dr. Nathalia Banda MCHC 34.0 g/dl Normal 29.9-35.2 [facility] Comment on above: Performed By: #### C VIN #### [facility] [address] [place] [address] Dr. Nathalia Banda MCV 89.1 fL Normal 80.0-94.0 [facility] Comment on above: Performed By: #### C VIN #### [facility] [address] [place] [address] Dr. Nathalia Banda METAMYELOCYTE # Normal The [facility] Comment on above: Performed By: #### C VIN #### [facility] [address] [place] [address] Dr. Nathalia Banda METAMYELOCYTE % Normal The [facility] Comment on above: Performed By: #### C VIN #### [facility] [address] [place] [address] Dr. Nathalia Banda MONOM# 1.59 103/ul Critically high 0.30-0.80 [facility] Comment on above: Performed By: #### C BCNICO #### [facility] [address] [address] [address] Nathalia Banda MONOM% 11.0 % Normal 1.7-12.0 [facility] Comment on above: Performed By: #### C BCNICO #### [facility] [address] [place] [address] Dr. Nathalia Banda MPV 9.7 fL Normal 9.5-13.5 [facility] Comment on above: Performed By: #### C BCNICO #### [facility] [address] [place] [address] Dr. Nathalia Banda MYELOCYTE # Normal [facility] Comment on above: Performed By: #### C VIN #### [facility] [address] [place] [address] Dr. Nathalia Banda MYELOCYTE % Normal [facility] Comment on above: Performed By: #### C VIN #### [facility] [address] [place] [address] Dr. Nathalia Banda NRBC Normal [facility] Comment on above: Performed By: #### C VIN #### [facility] [address] [place] [address] Dr. Nathalia Banda PLT 333 103/ul Normal 150-450 [facility] Comment on above: Performed By: #### C VIN #### [facility] [address] [place] [address] Dr. Nathalia Banda RBC 5.05 106/ul Normal 4.70-6.10 [facility] Comment on above: Performed By: #### C VIN #### [facility] [address] [place] [address] Dr. Nathalia Banda RDW 11.5 % Normal 11.0-15.0 [facility] Comment on above: Performed By: #### C BCNICO #### [facility] [address] [place] [address] Dr. Nathalia Banda SEG # 10.88 103/ul Critically high 1.40-6.50 [facility] Comment on above: Performed By: #### C VIN #### [facility] [address] [address] [address] Nathalia Banda SEG % 75.0 % Normal 43.0-75.0 [facility] Comment on above: Performed By: #### C VIN #### [facility] [address] [address] [address] Nathalia Banda WBC 14.5 103/ul Critically high 4.0-11.0 [facility] Comment on above: Performed By: #### C VIN #### [facility] [address] [place] [address] Dr. Nathalia Banda [facility] SARS-CoV-2 (COVID-19) RNA ZOHAIB+probe Ql (Unsp spec) Not detected Normal NOT DETECTED The [facility] Comment on above: Result Comment: This test is not yet approved or cleared by the [place] FDA. When there are no FDA-approved or cleared tests available, and other criteria are met, FDA can make tests available under an emergency access mechanism called an Emergency Use Authorization (EUA). The EUA for this test is supported by the [place] of Health and Human Service's (HHS's) declaration [...] consistent with SARS-CoV-2. Performed By: #### C LUIS #### [facility] [address] [place] [address] Dr. Nathalia Banda LIPASEon 10-26-2020 Lipase [Catalytic activity/Vol] 1202.0 U/L Critically high 23.0-300.0 [facility] Comment on above: Result Comment: Test repeated. Critical value verified. Performed By: #### L IPA, CMP #### [facility] [address] [id number] [place] Lipase [Catalytic activity/Vol] 1514.0 U/L Critically high 23.0-300.0 [facility] Comment on above: Result Comment: test repeated, critical value verified Performed By: #### C BC #### [facility] [id number] Nathalia Banda LIPID PROFILEon 10-26-2020 CHOL-HDL RATIO NORM SEE BELOW Normal [facility] Comment on above: Result Comment: 3.3 - 4.4 LOW RISK 4.4 - 7.1 AVERAGE RISK 7.1 - 11.0 MODERATE RISK >11.0 HIGH RISK Performed By: #### L IPA, CMP #### [facility] [address] [place] [address] [place] Cholesterol [Mass/Vol] 149 mg/dL Normal <=200 Th [facility] Comment on above: Performed By: #### L IPA, CMP #### [facility] [address] [place] [address] [place] Cholesterol in HDL [Mass/Vol] 42 mg/dL Normal [facility] Comment on above: Performed By: #### L IPA, CMP #### [facility] [address] [place] [address] [place] Cholesterol in LDL [Mass/Vol] 86.2 mg/dL Normal [facility] Comment on above: Performed By: #### L IPA, CMP #### [facility] [address] [place], [place] [id number] [place] Cholesterol.total/Choles terol in HDL [Mass ratio] 3.5 {ratio} Normal [facility] Comment on above: Performed By: #### L IPA, CMP #### [facility] [address] [place], [place] [id number] [place] HDL NORMAL > or = 60 mg/dl - LO W CARDIOVASCULAR RISK <40 mg/dl - HIGH CARDIOVASCULAR RISK Normal [facility] Comment on above: Performed By: #### L IPA, CMP #### [facility] [address] [place] [address] [place] LDL CALC NORMAL SEE BELOW Normal [facility] Comment on above: Result Comment: <100 mg/dl OPTIMAL 100 - 129 mg/dl NEAR OR ABOVE OPTIMAL 130 - 159 mg/dl BORDERLINE HIGH 160 - 189 mg/dl HIGH >190 mg/dl VERY HIGH Performed By: #### L IPA, CMP #### [facility] [address] [id number] [place] Triglyceride [Mass/Vol] 104 mg/dL Normal <=150 T [facility] Comment on above: Performed By: #### L IPA, CMP #### [facility] [address] [id number] [place] VLDL CALC 20.8 mg/dL Normal [facility] Comment on above: Performed By: #### L IPA, CMP #### [facility] [address] [place], [place] [id number] Edin Perez PROF 14(COMP METB)on 021 Albumin [Mass/Vol] 2.9 g/dL Critically low 3.5-5.0 [facility] Comment on above: Performed By: #### L IPA, CMP #### [facility] [address] [place], [place] [id number] [place] Albumin/Globulin [Mass ratio] 0.7 {ratio} Normal [facility] Comment on above: Performed By: #### L IPA, CMP #### [facility] [address] [place], [place] [id number] [place] ALP [Catalytic activity/Vol] 75 U/L Normal 38-126 [facility] Comment on above: Performed By: #### L IPA, CMP #### [facility] [address] [place], [place] [id number] [place] ALT [Catalytic activity/Vol] 21 U/L Normal 21-72 [facility] Comment on above: Performed By: #### L IPA, CMP #### [facility] [address] [id number] [place] Anion gap [Moles/Vol] 13.2 mmol/L Normal [facility] Comment on above: Performed By: #### L IPA, CMP #### [facility] [address] [address] [place] AST [Catalytic activity/Vol] 11 U/L Critically low 17-59 [facility] Comment on above: Performed By: #### L IPA, CMP #### [facility] [address] [address] [place] Bilirubin [Mass/Vol] 0.4 mg/dL Normal 0.2-1.3 [facility] Comment on above: Performed By: #### L IPA, CMP #### [facility] [address] [address] [place]aa Calcium [Mass/Vol] 9.1 mg/dL Normal 8.4-10.2 [facility] Comment on above: Performed By: #### L IPA, CMP #### [facility] [address] [address] [place] Chloride [Moles/Vol] 97 mmol/L Critically low 98-107 [facility] Comment on above: Performed By: #### L IPA, CMP #### [facility] [address] [address] [place] CO2 [Moles/Vol] 25.8 mmol/L Normal 22.0-30.0 [facility] Comment on above: Performed By: #### L IPA, CMP #### [facility] [address] [id number] [place] Creatinine [Mass/Vol] 0.85 mg/dL Normal 0.66-1.25 [facility] Comment on above: Performed By: #### L IPA, CMP #### [facility] [address] [id number] [place] EGFR-AF TUNISIAN >60 Normal >=60 [facility] Comment on above: Performed By: #### L IPA, CMP #### [facility] [address] [id number] [place] EGFR-NON AF TUNISIAN >60 Normal >=60 [facility] Comment on above: Performed By: #### L IPA, CMP #### [facility] [address] [place], [place] [address] [place] Globulin (S) [Mass/Vol] 4.3 g/dL Normal T [facility] Comment on above: Performed By: #### L IPA, CMP #### [facility] [address] [place], [place] [address] [place] Glucose [Mass/Vol] 100 mg/dL Normal 74-106 [facility] Comment on above: Performed By: #### L IPA, CMP #### [facility] [address] [place], [place] [address] [place] Potassium [Moles/Vol] 4.0 mmol/L Normal 3.4-5.0 [facility] Comment on above: Performed By: #### L IPA, CMP #### [facility] [address] [id number] [place] Protein [Mass/Vol] 7.2 g/dL Normal 6.1-8.2 [facility] Comment on above: Performed By: #### L IPA, CMP #### [facility] [address] [id number] [place] Sodium [Moles/Vol] 132 mmol/L Critically low 137-145 [facility] Comment on above: Performed By: #### L IPA, CMP #### [facility] [address] [id number] [place] Urea nitrogen [Mass/Vol] 12.0 mg/dL Normal 9.0-20.0 [facility] Comment on above: Performed By: #### L IPA, CMP #### [facility] [address] [id number] [place] Urea nitrogen/Creatinine [Mass ratio] 14.1 mg/mg Normal [facility] Comment on above: Performed By: #### L IPA, CMP #### [facility] [address] [id number] [place] Albumin [Mass/Vol] 3.4 g/dL Critically low 3.5-5.0 [facility] Comment on above: Performed By: #### L IPA, CMP #### [facility] [address] [id number] [place] Albumin/Globulin [Mass ratio] 0.7 {ratio} Normal [facility] Comment on above: Performed By: #### L IPA, CMP #### [facility] [address] [place] [address] [place] ALP [Catalytic activity/Vol] 90 U/L Normal 38-126 [facility] Comment on above: Performed By: #### L IPA, CMP #### [facility] [address] [place] [address] [place] ALT [Catalytic activity/Vol] 25 U/L Normal 21-72 [facility] Comment on above: Performed By: #### L IPA, CMP #### [facility] [address] [place] [address] [place] Anion gap [Moles/Vol] 12.8 mmol/L Normal [facility] Comment on above: Performed By: #### L IPA, CMP #### [facility] [address] [place] [address] [place] AST [Catalytic activity/Vol] 13 U/L Critically low 17-59 [facility] Comment on above: Performed By: #### L IPA, CMP #### [facility] [address] [place] [address] [place] Bilirubin [Mass/Vol] 0.4 mg/dL Normal 0.2-1.3 [facility] Comment on above: Performed By: #### L IPA, CMP #### [facility] [address] [place] [address] [place] Calcium [Mass/Vol] 9.4 mg/dL Normal 8.4-10.2 [facility] Comment on above: Performed By: #### L IPA, CMP #### [facility] [address] [place] [address] [place] Chloride [Moles/Vol] 94 mmol/L Critically low 98-107 [facility] Comment on above: Performed By: #### L IPA, CMP #### [facility] [address] [place], [place] [id number] [place] CO2 [Moles/Vol] 27.1 mmol/L Normal 22.0-30.0 [facility] Comment on above: Performed By: #### L IPA, CMP #### [facility] [address] [place] [address] [place] Creatinine [Mass/Vol] 0.85 mg/dL Normal 0.66-1.25 [facility] Comment on above: Performed By: #### L IPA, CMP #### [facility] [address] [place] [address] [place] EGFR-AF TUNISIAN >60 Normal >=60 [facility] Comment on above: Performed By: #### L IPA, CMP #### [facility] [address] [place] [address] [place] EGFR-NON AF TUNISIAN >60 Normal >=60 [facility] Comment on above: Performed By: #### L IPA, CMP #### [facility] [address] [place] [address] [place] Globulin (S) [Mass/Vol] 4.9 g/dL Normal [facility] Comment on above: Performed By: #### L IPA, CMP #### [facility] [address] [place] [address] [place] Glucose [Mass/Vol] 117 mg/dL Critically high 74-106 [facility] Comment on above: Performed By: #### L IPA, CMP #### [facility] [address] [place] [address] [place] Potassium [Moles/Vol] 3.9 mmol/L Normal 3.4-5.0 [facility] Comment on above: Performed By: #### L IPA, CMP #### [facility] [address] [place] [address] [place] Protein [Mass/Vol] 8.3 g/dL Critically high 6.1-8.2 [facility] Comment on above: Performed By: #### L IPA, CMP #### [facility] [address] [place] [address] [place] Sodium [Moles/Vol] 130 mmol/L Critically low 137-145 Th e [facility] Comment on above: Performed By: #### L IPA, CMP #### [facility] [address] [address] [place] Urea nitrogen [Mass/Vol] 13.0 mg/dL Normal 9.0-20.0 [facility] Comment on above: Performed By: #### L IPA, CMP #### [facility] [address] [place] [address] [place] Urea nitrogen/Creatinine [Mass ratio] 15.3 mg/mg Normal [facility] Comment on above: Performed By: #### L IPA, CMP #### [facility] [address] [place] [address] [place] XR ABD FLAT UP_PA Prem [...] JOHN CEE Date: 2020-10-25 23:34 Normal [facility] CBC W MANUAL DIFFon 10-18-19 21 ATYPICAL LYMPH # Normal [facility] Comment on above: Performed By: #### L IPA, CMP #### [facility] [address] [place] [address] [place] ATYPICAL LYMPH % Normal [facility] Comment on above: Performed By: #### L IPA, CMP #### [facility] [address] [place] [address] [place] BAND # Normal 0.0-0.3 [facility] Comment on above: Performed By: #### L IPA, CMP #### [facility] [address] [place] [address] [place] BAND % Normal 0-5 [facility] Comment on above: Performed By: #### L IPA, CMP #### [facility] [address] [place] [address] [place] BASOM # 0.00 103/ul Normal 0.00-0.10 [facility] Comment on above: Performed By: #### L IPA, CMP #### [facility] [address] [place] [address] [place] BASOM % 0.0 % Critically low 0.2-2.0 [facility] Comment on above: Performed By: #### L IPA, CMP #### [facility] [address] [place] [address] [place] BLAST # Normal [facility] Comment on above: Performed By: #### L IPA, CMP #### [facility] [address] [place] [address] [place] BLAST % Normal [facility] Comment on above: Performed By: #### L IPA, CMP #### [facility] [address] [place] [address] [place] CORRECTED WBC Normal 4.0-11.0 [facility] Comment on above: Performed By: #### L IPA, CMP #### [facility] [address] [place] [address] [place] EOS # 0.16 103/ul Normal 0.00-0.70 [facility] Comment on above: Performed By: #### L IPA, CMP #### [facility] [address] [place] [address] [place] EOS% 1.0 % Normal 0.9-7.0 [facility] Comment on above: Performed By: #### L IPA, CMP #### [facility] [address] [place] [address] [place] HCT 47.7 % Normal 42.0-54.0 [facility] Comment on above: Performed By: #### L IPA, CMP #### [facility] [address] [place] [address] [place] HGB 16.5 g/dl Normal 14.0-18.0 [facility] Comment on above: Performed By: #### L IPA, CMP #### [facility] [address] [id number] [place] LYMPHM # 2.67 103/ul Normal 1.20-3.80 [facility] Comment on above: Performed By: #### L IPA, CMP #### [facility] [address] [id number] [place] LYMPHM% 17.0 % Critically low 20.5-60.0 [facility] Comment on above: Performed By: #### L IPA, CMP #### [facility] [address] [address] [place] MCH 31.1 pg Normal 25.9-34.0 [facility] Comment on above: Performed By: #### L IPA, CMP #### [facility] [address] [place] [address] [place] MCHC 34.6 g/dl Normal 29.9-35.2 [facility] Comment on above: Performed By: #### L IPA, CMP #### [facility] [address] [place] [address] [place] MCV 90.0 fL Normal 80.0-94.0 [facility] Comment on above: Performed By: #### L IPA, CMP #### [facility] [address] [place] [address] [place] METAMYELOCYTE # Normal [facility] Comment on above: Performed By: #### L IPA, CMP #### [facility] [address] [place] [address] [place] METAMYELOCYTE % Normal [facility] Comment on above: Performed By: #### L IPA, CMP #### [facility] [address] [place] [address] [place] MONOM# 1.10 103/ul Critically high 0.30-0.80 [facility] Comment on above: Performed By: #### L IPA, CMP #### [facility] [address] [address] [place] MONOM% 7.0 % Normal 1.7-12.0 [facility] Comment on above: Performed By: #### L IPA, CMP #### [facility] [address] [place] [address] [place] De Lunaen MPV 10.3 fL Normal 9.5-13.5 [facility] Comment on above: Performed By: #### L IPA, CMP #### [facility] [address] [place] [address] [place] MYELOCYTE # Normal [facility] Comment on above: Performed By: #### L IPA, CMP #### [facility] [address] [place] [address] [place] MYELOCYTE % Normal [facility] Comment on above: Performed By: #### L IPA, CMP #### [facility] [address] [place] [address] [place] NRBC Normal [facility] Comment on above: Performed By: #### L IPA, CMP #### [facility] [address] [place] [address] [place] PLT 227 103/ul Normal 150-450 [facility] Comment on above: Performed By: #### L IPA, CMP #### [facility] [address] [place] [address] [place] RBC 5.30 106/ul Normal 4.70-6.10 [facility] Comment on above: Performed By: #### L IPA, CMP #### [facility] [address] [place] [address] [place] RDW 11.7 % Normal 11.0-15.0 [facility] Comment on above: Performed By: #### L IPA, CMP #### [facility] [address] [place] [address] [place] SEG # 11.78 103/ul Critically high 1.40-6.50 [facility] Comment on above: Performed By: #### L IPA, CMP #### [facility] [address] [place] [address] [place] SEG % 75.0 % Normal 43.0-75.0 [facility] Comment on above: Performed By: #### L IPA, CMP #### [facility] [address] [place], [place] [address] Ed[place] Perez WBC 15.7 103/ul Critically high 4.0-11.0 [facility] Comment on above: Performed By: #### L IPA, CMP #### [facility] [address] [place], [place] [address] ABD/PELV W CONon 10-18-[address] ABD/PELV W CON EXAMINATION: CT ABD/PELV [...] values and urinalysis. Electronically authenticated by: GINNY CHRISTIAN Date: 2020-10-17 20:00 Normal [facility] LACTATE/LACTIC ACIDon 2020 Lactate [Moles/Vol] 1.2 mmol/L Normal 0.7-2.0 [facility] Comment on above: Performed By: #### L ACT #### [facility] [address] [place], [place] [id number] Edin Perez LIPASEon 10-17-2020 Lipase [Catalytic activity/Vol] 638.0 U/L Critically high 23.0-300.0 [facility] Comment on above: Performed By: #### L IPA, CMP #### [facility] [address] [place], [place] [id number] Edin Perez PROF 14(COMP METB)on 021 Albumin [Mass/Vol] 3.9 g/dL Normal 3.5-5.0 [facility] Comment on above: Performed By: #### L IPA, CMP #### [facility] [address] [place], [place] [id number] Edin Perez Albumin/Globulin [Mass ratio] 0.9 {ratio} Normal [facility] Comment on above: Performed By: #### L IPA, CMP #### [facility] [address] [id number] Edin Perez ALP [Catalytic activity/Vol] 94 U/L Normal 38-126 [facility] Comment on above: Performed By: #### L IPA, CMP #### [facility] [address] [place] [address] Edin Ana ALT [Catalytic activity/Vol] 24 U/L Normal 21-72 [facility] Comment on above: Performed By: #### L IPA, CMP #### [facility] [address] [id number] Edin Ana Anion gap [Moles/Vol] 11.4 mmol/L Normal Th e [facility] Comment on above: Performed By: #### L IPA, CMP #### [facility] [address] [address] Edin Ana AST [Catalytic activity/Vol] 13 U/L Critically low 17-59 [facility] Comment on above: Performed By: #### L IPA, CMP #### [facility] [address] [place] [address] Edin Ana Bilirubin [Mass/Vol] 0.8 mg/dL Normal 0.2-1.3 [facility] Comment on above: Performed By: #### L IPA, CMP #### [facility] [address] [place], [place] [id number] Edin Ana Calcium [Mass/Vol] 9.5 mg/dL Normal 8.4-10.2 [facility] Comment on above: Performed By: #### L IPA, CMP #### [facility] [address] [address] Edin Ana Chloride [Moles/Vol] 97 mmol/L Critically low 98-107 [facility] Comment on above: Performed By: #### L IPA, CMP #### [facility] [address] [id number] Edin Ana CO2 [Moles/Vol] 27.5 mmol/L Normal 22.0-30.0 [facility] Comment on above: Performed By: #### L IPA, CMP #### [facility] [address] [id number] Edin Ana Creatinine [Mass/Vol] 0.93 mg/dL Normal 0.66-1.25 [facility] Comment on above: Performed By: #### L IPA, CMP #### [facility] [address] [id number] Edin Ana EGFR-AF TUNISIAN >60 Normal >=60 [facility] Comment on above: Performed By: #### L IPA, CMP #### [facility] [address] [id number] Edin Ana EGFR-NON AF TUNISIAN >60 Normal >=60 [facility] Comment on above: Performed By: #### L IPA, CMP #### [facility] [address] [phone] Edin Ana Globulin (S) [Mass/Vol] 4.5 g/dL Normal [facility] Comment on above: Performed By: #### L IPA, CMP #### [facility] [address] [id number] Edin Ana Glucose [Mass/Vol] 131 mg/dL Critically high 74-106 [facility] Comment on above: Performed By: #### L IPA, CMP #### [facility] [address] [id number] Edin Ana Potassium [Moles/Vol] 3.9 mmol/L Normal 3.4-5.0 [facility] Comment on above: Performed By: #### L IPA, CMP #### [facility] [address] [id number] Edin Ana Protein [Mass/Vol] 8.4 g/dL Critically high 6.1-8.2 [facility] Comment on above: Performed By: #### L IPA, CMP #### [facility] [address] [id number] Edin Ana Sodium [Moles/Vol] 132 mmol/L Critically low 137-145 [facility] Comment on above: Performed By: #### L IPA, CMP #### [facility] [address] [address] Edin Ana Urea nitrogen [Mass/Vol] 10.0 mg/dL Normal 9.0-20.0 [facility] Comment on above: Performed By: #### L IPA, CMP #### [facility] [address] [phone] Edin Ana Urea nitrogen/Creatinine [Mass ratio] 10.8 mg/mg Normal [facility] Comment on above: Performed By: #### L IPA, CMP #### [facility] [address] [place], [place] [address] Edin Ana CBC AUTO DIFFon 01-21-2020 BASO # 0.1 103/ul Normal 0.0-0.1 [facility] Comment on above: Performed By: #### C BC #### [facility] [address] [place], [place] [address] Edin Ana Basophils/100 WBC (Bld) 0.9 % Normal 0.2-2.0 [facility] Comment on above: Performed By: #### C BC #### [facility] [address] [place], [place] [address] Edin Ana EO # 0.4 103/ul Normal 0.0-0.7 [facility] Comment on above: Performed By: #### C BC #### [facility] [address] [place], [place] [address] Edin Ana Eosinophils/100 WBC (Bld) 3.8 % Normal 0.9-7.0 [facility] Comment on above: Performed By: #### C BC #### [facility] [address] [place], [place] [address] Edin Aan Erythrocyte distribution width (RBC) [Ratio] 12.3 % Normal 11.0-15.0 [facility] Comment on above: Performed By: #### C BC #### [facility] [address] [place], [place] [phone] Edin Ana Hematocrit (Bld) [Volume fraction] 44.5 % Normal 42.0-54.0 [facility] Comment on above: Performed By: #### C BC #### [facility] [address] [place], [place] [address] Edin Ana Hemoglobin (Bld) [Mass/Vol] 14.8 g/dL Normal 14.0-18.0 [facility] Comment on above: Performed By: #### C BC #### [facility] [address] [address] Edin Ana IG # 0.06 10e3/ul Critically high 0.00-0.03 [facility] Comment on above: Performed By: #### C BC #### [facility] [address] [address] Edin Ana IG % 0.6 % Critically high 0.0-0.5 [facility] Comment on above: Performed By: #### C BC #### [facility] [address] [address] Edin Ana LYMPH # 3.0 103/ul Normal 1.2-3.8 [facility] Comment on above: Performed By: #### C BC #### [facility] [address] [place] [address] Edin Ana Lymphocytes/100 WBC (Bld) 29.5 % Normal 20.5-60.0 [facility] Comment on above: Performed By: #### C BC #### [facility] [address] [place], [place] [address] Edin Perez MANUAL DIFF REQ NO Normal [facility] Comment on above: Performed By: #### C BC #### [facility] [address] [place], [place] [address] Edinrico De Lunaen MCH (RBC) [Entitic mass] 31.1 pg Normal 25.9-34.0 [facility] Comment on above: Performed By: #### C BC #### [facility] [address] [place], [place] [address] Edinrico Perez MCHC (RBC) [Mass/Vol] 33.3 g/dL Normal 29.9-35.2 [facility] Comment on above: Performed By: #### C BC #### [facility] [address] [place], [place] [address] Edin Ana MCV (RBC) [Entitic vol] 93.5 fL Normal 80.0-94.0 [facility] Comment on above: Performed By: #### C BC #### [facility] [address] [place], [place] [address] Edin Ana MONO # 1.2 103/ul Critically high 0.3-0.8 [facility] Comment on above: Performed By: #### C BC #### [facility] [address] [phone] Edin Ana Monocytes/100 WBC (Bld) 11.3 % Normal 1.7-12.0 [facility] Comment on above: Performed By: #### C BC #### [facility] [address] [address] Edin Ana NEUT # 5.6 103/ul Normal 1.4-6.5 [facility] Comment on above: Performed By: #### C BC #### [facility] [address] [place], [place] [address] Edin Ana Neutrophils/100 WBC (Bld) 53.9 % Normal 43.0-75.0 [facility] Comment on above: Performed By: #### C BC #### [facility] [address] [place], [place] [address] Edin Ana Platelet mean volume (Bld) [Entitic vol] 10.5 fL Normal 9.5-13.5 [facility] Comment on above: Performed By: #### C BC #### [facility] [address] [place], [place] [address] Edin Ana PLT 234 103/ul Normal 150-450 [facility] Comment on above: Performed By: #### C BC #### [facility] [address] [place], [place] [address] Edin Ana RBC 4.76 106/ul Normal 4.70-6.10 [facility] Comment on above: Performed By: #### C BC #### [facility] [address] [place], [place] [address] Edin Ana WBC 10.3 103/ul Normal 4.0-11.0 [facility] Comment on above: Performed By: #### C BC #### [facility] [address] [place], [place] [address] Edinrico De Lunaen PROF 14(COMP METB)on 020 Albumin [Mass/Vol] 3.9 g/dL Normal 3.5-5.0 [facility] Comment on above: Performed By: #### C BC #### [facility] [address] [place] [address] Dr. Nathalia Banda Albumin/Globulin [Mass ratio] 1.1 {ratio} Normal [facility] Comment on above: Performed By: #### C BC #### [facility] [address] [place] [address] Dr. Nathalia Banda ALP [Catalytic activity/Vol] 78 U/L Normal 38-126 [facility] Comment on above: Performed By: #### C BC #### [facility] [address] [place] [address] Dr. Nathalia Banda ALT [Catalytic activity/Vol] 40 U/L Normal 21-72 [facility] Comment on above: Performed By: #### C BC #### [facility] [address] [place] [address] Dr. Nathalia Banda Anion gap [Moles/Vol] 15.3 mmol/L Normal [facility] Comment on above: Performed By: #### C BC #### [facility] [address] [place] [address] Dr. Nathalia Banda AST [Catalytic activity/Vol] 17 U/L Normal 17-59 [facility] Comment on above: Performed By: #### C BC #### [facility] [address] [place] [address] Dr. Nathalia Banda Bilirubin [Mass/Vol] 0.6 mg/dL Normal 0.2-1.3 [facility] Comment on above: Performed By: #### C BC #### [facility] [address] [place] [address] Dr. Nathalia Banda Calcium [Mass/Vol] 9.4 mg/dL Normal 8.4-10.2 [facility] Comment on above: Performed By: #### C BC #### [facility] [address] [place] [address] Dr. Nathalia Banda Chloride [Moles/Vol] 103 mmol/L Normal 98-107 [facility] Comment on above: Performed By: #### C BC #### [facility] [address] [address] [address] Nathalia Banda CO2 [Moles/Vol] 25.0 mmol/L Normal 22.0-30.0 [facility] Comment on above: Performed By: #### C BC #### [facility] [address] [address] [address] Nathalia Banda Creatinine [Mass/Vol] 0.81 mg/dL Normal 0.66-1.25 [facility] Comment on above: Performed By: #### C BC #### [facility] [address] [place] [address] Dr. Nathalia Banda EGFR-AF TUNISIAN >60 Normal >=60 [facility] Comment on above: Performed By: #### C BC #### [facility] [address] [place] [address] Dr. Nathalia Banda EGFR-NON AF TUNISIAN >60 Normal >=60 [facility] Comment on above: Performed By: #### C BC #### [facility] [address] [place] [address] Dr. Nathalia Banda Globulin (S) [Mass/Vol] 3.7 g/dL Normal T [facility] Comment on above: Performed By: #### C BC #### [facility] [address] [place] [address] Dr. Nathalia Banda Glucose [Mass/Vol] 100 mg/dL Normal 74-106 [facility] Comment on above: Performed By: #### C BC #### [facility] [address] [place] [address] Dr. Nathalia Banda Potassium [Moles/Vol] 4.3 mmol/L Normal 3.4-5.0 [facility] Comment on above: Performed By: #### C BC #### [facility] [address] [place] [address] Dr. Nathalia Banda Protein [Mass/Vol] 7.6 g/dL Normal 6.1-8.2 [facility] Comment on above: Performed By: #### C BC #### [facility] [address] [place] [address] Dr. Nathalia Banda Sodium [Moles/Vol] 139 mmol/L Normal 137-145 [facility] Comment on above: Performed By: #### C BC #### [facility] [address] [place] [address] Dr. Nathalia Banda Urea nitrogen [Mass/Vol] 17.0 mg/dL Normal 9.0-20.0 [facility] Comment on above: Performed By: #### C BC #### [facility] [address] [place] [address] Dr. Nathalia Banda Urea nitrogen/Creatinine [Mass ratio] 21.0 mg/mg Normal [facility] Comment on above: Performed By: #### C BC #### [facility] [address] [place] [address] Dr. Nathalia Banda T4on 01-21-2020 T4 [Mass/Vol] 8.10 ug/dL Normal 5.53-11.00 [facility] Comment on above: Performed By: #### C BC #### [facility] [address] [place] [address] Dr. Nathalia Banda TSHon 01-21-2020 TSH 2.041 uIU/mL Normal 0.470-4.680 [facility] Comment on above: Performed By: #### C BC #### [facility] [address] [place] [address] Dr. Nathalia Banda TSH RANGE SEE BELOW Normal [facility] Comment on above: Result Comment: <0.3 4 UIU/ml HYPERTHYROID 0.34-5.60 UIU/ml EUTHYROID >5.60 UIU/ml HYPOTHYROID Performed By: #### C BC #### [facility] [address] [place] [address] Dr. Nathalia Banda Sperm Morphologyon 8 Sperm Morphology SEE REPORT Normal [facility] Comment on above: Result Comment: PERF ORMED AT [address] [id number] [phone] Performed By: #### S FFER, SMORPH ####[facility] [address] [place] [address] Seminal Fluid Examon 04-24-2 018 Consistency HOMOGENEOUS Normal [facility] Comment on above: Performed By: #### S VINCENT SMORPH ####[address] [address] Liquification Time Normal Normal NORM [facility] Comment on above: Result Comment: Refe rence Range: <30 min from collection Performed By: #### S VINCENT SMORPH ####[address] [address] pH - Seminal Fl. 8.6 Normal >7.1 [facility] Comment on above: Performed By: #### Lynsey KAUR SMORPH ####[address] [address] Progressive Motility 60% Normal >39 [facility] Comment on above: Performed By: #### Lynsey KAUR SMORP ####[address] [address] Sperm - Count 31 million/mL Normal >15 [facility] Comment on above: Performed By: #### Lynsey KAUR SMORPH ####[address] [address] Sperm Morphology Sample sent to reference laboratory. Normal [facility] Comment on above: Result Comment: [facility] [address] [place] [address] Performed By: #### Lynsey KAUR SMORPH ####[address] [address] Turbidity CLOUDY Normal [facility] Comment on above: Performed By: #### Lynsey KAUR SMORPH ####[address] [address] Urine, color WYNNE Normal [facility] Comment on above: Performed By: #### S MADELINE KAURRPH ####[facility] [address] [place] [address] Volume-Seminal Fl. 0.8 mL Low >1.4 [facility] Comment on above: Performed By: #### S VINCENT SMORPH ####[facility] [address] [place] [address] Azoospermatic Conf. NOT REPORTED Normal [facility] Comment on above: Performed By: #### S HANK KAURH ####[facility] [address] [place] [address] Body temperature NOT REPORTED Normal [facility] Comment on above: Performed By: #### Lynsey KAUR SMORPH ####[facility] [address] [place] [address] Morphology-Sperm NOT REPORTED Normal >60 [facility] Comment on above: Performed By: #### HANK HELMH ####[facility] [address] [place] [address] Reviewing Pathologist: NOT REPORTED Normal [facility] Comment on above: Performed By: #### Lynsey KAUR SMORPH ####[facility]over[facility] [place] [address] Sperm Mot Check Time NOT REPORTED Normal [facility] Comment on above: Performed By: #### S VINCENT SMORPH ####[facility] [address] [place] [address] Sperm Viablity NOT REPORTED Normal >50 [facility] Comment on above: Performed By: #### S VINCENT SMORPH ####[facility] [address] [place] [address] WBC (Leukocytes) NOT REPORTED Normal 0 [facility] Comment on above: Performed By: #### S FFER, SMORPH ####[facility] [address] [place], [place] [id number] Other NOT REPORTED Normal [facility] Comment on above: Performed By: #### S FFER, SMORPH ####[facility] [address] [place], [place] [id number] Vital Signs Date Time Vital Sign Value Performing Clinician Faci lity 12-20-2021 14:23-0500 Diastolic blood pressure 84 mm[Hg] DO [employer] Work Phone: [facility] 12-20-2021 14:23-0500 Heart rate 76 /min DO [employer] Work Phone: [facility] 12-20-2021 14:23-0500 Respiratory rate 16 /min DO [employer] Work Phone: [facility] 12-20-2021 14:23-0500 SaO2% (BldA) [Mass fraction] 96 % DO [employer] Work Phone: [facility] 12-20-2021 14:23-0500 Systolic blood pressure 148 mm[Hg] DO [employer] Work Phone: [facility] 12-20-2021 12:58-0500 Body temperature 97.8 [degF] DO [employer] Work Phone: [facility] 12-20-2021 12:58-0500 Inhaled oxygen flow rate 10 L/min DO [employer] Work Phone: [facility] 12-20-2021 11:51-0500 Body height 172.72 cm DO [employer] Work Phone: [facility] 12-20-2021 11:51-0500 Body mass index (BMI) [Ratio] 37.8 kg/m2 DO [employer] Work Phone: [facility] 12-20-2021 11:51-0500 Body weight 113 kg DO William House Work Phone: [facility] Encounters Encounter Date Encounter Type Care Provider Facility Start: 12-21-2023 End: 12-21-2023 Orders Only Manjula Velez PALM GATHERER Work Phone: [facility] Comment on above: Encounter for [facility] ss examination (Primary Dx) Start: 12-21-2023 End: 12-21-2023 Patient encounter status Manjula Velez PALM GATHERER Work Phone: [facility] Work Phone: Start: 09-28-2023 End: 09-28-2023 ambulatory MANJULA RODRIGUEZK Not Available Start: 05-25-2023 End: 05-25-2023 ambulatory ROMANO FAWWAD Not Available Start: 04-24-2023 End: 04-24-2023 ambulatory ROMANO FAWWAD Not Available Start: 03-30-2023 End: 03-30-2023 ambulatory ROMANO FAWWAD Not Available Start: 01-31-2023 End: 01-31-2023 ambulatory ROMANO FAWWAD Not Available Start: 01-31-2023 Patient encounter procedure Manjula Velez PALM GATHERER Work Phone: [facility] Start: 12-20-2021 End: 12-20-2021 ambulatory William House Facility:[facility] Start: 12-20-2021 End: 12-20-2021 Admission to same day surgery center DO William House Work Phone: [facility] [place] Start: 12-20-2021 End: 12-20-2021 ambulatory DO William House Work Phone: [facility] Work Phone: Start: 12-16-2021 End: 12-16-2021 ambulatory Elie Thompson Facility:[facility] Start: 12-16-2021 End: 12-16-2021 ambulatory DO William House Work Phone: [facility] Work Phone: Start: 12-16-2021 End: 12-16-2021 Patient encounter procedure DO William Warner Work Phone: [facility] Kzd-Oxt-Febwrupn Testing Start: 12-10-2021 End: 12-10-2021 ambulatory Elie Thompson Facility:[facility] Start: 12-10-2021 End: 12-10-2021 Patient encounter procedure DO William Warner Work Phone: [facility] Teq-Pha-Phubptjg Testing Start: 11-27-2020 End: 11-28-[address] WILLIAM WARNER Facility:[facility] Start: 10-26-2020 End: 10-28-2020 Evaluation and management of inpatient DR AMANDA PAIGE Facility:[facility] Start: 10-17-2020 End: 10-17-2020 ambulatory JOHANN MARTINEZ Facility:[facility] Start: 01-21-2020 End: 01-22-[address] WILLIAM WARNER Facility:[facility] Start: 04-24-2017 End: 04-25-2017 Ambulatory ADRIAN CRENSHAW [facility] Procedures Date Procedure Procedure Detail Performing Clinician Start: 09-06-2022 Colonoscopy Manjula greenwood NP Work Phone: Start: 12-20-2021 Repair of umbilical hernia DO William Warner Work Phone: Start: 04-24-2017 SEMEN ANALYSIS ADRIAN NARVAEZ ANIA Start: 04-24-2017 SEMEN MORPHOLOGY ADRIAN MONTIEL SARS Antigen (LFIA) DO Zeny Warner Work Phone: Plan of Treatment Date Care Activity Detail Author Start: 09-06-2032 Screening for malign ant neoplasm of colon [facility] Start: 01-15-2024 End: 01-15-2024 Patient encounter procedure 01/15/2024 8:30 AM EST Office Visit [facility] [address] [place] [address] Manjula Velez NP [address] [place] [address] [facility] Start: 12-21-2023 End: 12-20-2024 CBC W Auto Differential panel - Blood CBC and differential Lab Routine Encounter for wellness examination Expected: 12/21/2023 (Approximate), Expires: 12/20/2024 [facility] Comment on above: Expected: 12/21/2023 (Approximate), Expires: 12/20/2024 Start: 12-21-2023 End: 12-20-2024 Comprehensive metabolic 2000 panel - Serum or Plasma Comprehensive metabolic panel Lab Routine Encounter for wellness examination Expected: 12/21/2023 (Approximate), Expires: 12/20/2024 [facility] Comment on above: Expected: 12/21/2023 (Approximate), Expires: 12/20/2024 Start: 12-21-2023 End: 12-20-2024 Hemoglobin A1c/Hemoglobin.total in Blood Hemoglobin A1c Lab Routine Encounter for wellness examination Expected: 12/21/2023 (Approximate), Expires: 12/20/2024 [facility] Comment on above: Expected: 12/21/2023 (Approximate), Expires: 12/20/2024 Start: 12-21-2023 End: 12-20-2024 Lipid 1996 panel - Serum or Plasma Lipid panel Lab Routine Encounter for wellness examination Expected: 12/21/2023 (Approximate), Expires: 12/20/2024 [facility] Comment on above: Expected: 12/21/2023 (Approximate), Expires: 12/20/2024 Start: 12-21-2023 End: 12-20-2024 TSH W/REFLEX TO FT4 TSH W/REFLEX TO FT4 Lab Routine Encounter for wellness examination Expected: 12/21/2023 (Approximate), Expires: 12/20/2024 [facility] Work Phone: Comment on above: Expected: 12/21/2023 (Approximate), Expires: 12/20/2024 Start: 10-08-2023 Influenza vaccination Influenza Vacc ine (#1) [facility] Start: 12-20-2021 End: 12-20-2021 [facility] Start: 1965 Screening for malign ant neoplasm of colon [facility] Immunizations Immunization Date Immunization Notes Care Provider Fa cility 03-06-2021 COVID-19 mRNA-1273 (Moderna) DO William House Work Phone: [facility] 06-03-2020 COVID-19 mRNA-1273 (Moderna) DO William House Work Phone: [facility] 05-06-2020 COVID-19 mRNA-1273 (Moderna) DO William House Work Phone: [facility] Payers Date Payer Category Payer [facility] [id number] 2022 Unknown [id number] 2014 Unknown [id number] 1964 Unknown [id number] 2.0.1.235191.3.579. 2.593 1964 Unknown [id number] 20.1.331818.3.579. 2.593 1964 Unknown [id number] 2.840.1.102074.3.579. 2.593 1964 Unknown [id number] 2.840.1.774887.3.579. 2.593 1964 Unknown [id number] 2.840.1.887261.3.579. 2.1259 1964 Unknown [id number] 2.840.1.994859.3.579. 2.1259 1964 Unknown [id number] 2.16.840.1.021400.3.579. 2.1259 1964 Unknown [id number] 2.16.840.1.093981.3.579. 2.1259 1964 Unknown [id number] 2.16.840.1.295447.3.579. 2.1259 1959 Self-pay 1959 Unknown [id number] Unknown [facility] [place] [id number] Unknown [id number] 2.16.840.1.472516.3.579. 2.531 Unknown [id number] 2.16.840.1.994276.3.579. 2.531 Unknown [id number] 2.16.840.1.655447.3.579. 2.531 Social History Date Type Detail Facility Start: 12-10-2021 End: 12-20-2021 Tobacco smoking status [facility] Smoker (finding) [facility] Start: 1965 Sex Assigned At Male [facility] Start: 09-28-2023 Tobacco smoking status [facility] Smokes tobacco daily [facility] History of tobacco use Cigarette Smoker [facility] Start: 01-06-2023 End: 09-28-2023 Cigarettes smoked current (pack per day) - Reported 0.5 [facility] History of tobacco use Passive smoker [facility] Start: 09-28-2023 Tobacco use and exposure Smokeless tobacco non-user [facility] Start: 11-15-2023 Alcoholic beverage intake Current drinker of alcohol (finding) [facility] Start: 01-06-2023 End: 09-28-2023 Alcohol Use Disorder Identification Test - Consumption [AUDIT-C] [facility] How often to you hav e a drink containing alcohol? 4 or more times a week [facility] How many standard dr inks containing alcohol do you have on a typical day? 3 or 4 [facility] How often do you hav e 6 or more drinks on 1 occasion? Daily or almost daily [facility] Start: 01-06-2023 Tobacco Comment 21-30 cigarettes/dayFirst cigarette after waking up: within 5minutes Notready to quit [facility] Start: 01-06-2023 Alcohol Comment Caffeine: coffee, soda/pop [facility] Start: 1965 Sex assigned at Not on file [facility] Healthcare Goals Date Patient Goal Desired Activity /State Evaluation note Note Date & Type Note Facility Evaluation note No assessment information availa [facility] Work Phone: Evaluation note Note Date & Type Note Facility Evaluation note Diagnosis Primary hypertension (CMS/HCC)- Primary Unspecified essential hypertension Alcohol abuse, in remission Nondependent alcohol abuse, in remission Erectile dysfunction due to diseases classified elsewhere Primary hypogonadism in male Annual physical exam Routine general medical examination at a health care facility Smoker Tobacco use disorder Primary hypertension (CMS/HCC)- Primary Unspecified essential hypertension Primary hypogonadism in male Bilateral lower extremity edema Suspected congestive heart failure Observation for suspected cardiovascular disease Morbid (severe) obesity due to excess calories (E66.01) Essential (primary) hypertension (I10) Unspecified essential hypertension Body mass index [BMI] 39.0-39.9, adult (Z68.39) Erectile dysfunction due to diseases classified elsewhere Primary hypertension (CMS/HCC)- Primary Unspecified essential hypertension Erectile dysfunction due to diseases classified elsewhere Primary hypogonadism in male Bilateral lower extremity edema Suspected congestive heart failure Observation for suspected cardiovascular disease Primary hypertension (CMS/HCC)- Primary Unspecified essential hypertension Primary hypogonadism in male Bilateral lower extremity edema Primary hypertension (CMS/HCC)- Primary Unspecified essential hypertension Erectile dysfunction due to diseases classified elsewhere Primary hypogonadism in male Bilateral lower extremity edema Cerumen debris on tympanic membrane of left ear Encounter for wellness examination- Primary documented in this encounter [facility] Summary Purpose Family History Relationship Condition Age at Onset Recorded Date/T robbin Not Specified Chronic obstructive pulmonary disease Un known Current smoker Unknown Unknown father Chronic obstructive pulmonary disease Unk nown Advance Directives Advance Directive Response Recorded Date/ Time Advance [...] section and content) DATE CREATED AUTHOR 07/28/2017 [facility] DATE CREATED AUTHOR AUTHOR'S ORGANIZ ATION 12/05/2020 [facility] DATE CREATED AUTHOR AUTHOR'S ORGANIZ ATION 03/12/2022 [facility] DATE CREATED AUTHOR AUTHOR'S ORGANIZ ATION 09/30/2023 [facility] EPIC Care Teams (unrecognized sec tion and content) Team Status: Inactive Member Role Status Dates Elie Thompson DO Attending Provider Active William Warner DO Primary Care Provider Active Team Status: Active Member Role Status Dates William Warner DO Primary Care Provider Active Nursing Home Director Relationship Specialty Start Date End Date William Warner MD [address] [place] [address] PCP - External PCP Family Medicine 09/27/22 Shaikh Ang MD [address] [place] [phone] PCP - [facility] 01/06/23 Jayme Barnett MD [address] [place] [phone] PCP - General Family Medicine 09/20/23 Manjula Velez NP [address] [place] [id number] Nurse Practitioner Family Medicine 09/20/23 Goals (unrecognized section and content) Goals may [...] BE BASED ON THE PRIMARY CLINICAL RECORDS. [facility]. provides no warranty or guarantee of the accuracy or completeness of information in this document.
[2024-01-09 08:06] LABS: Basophils Absolute Auto 0.1 10^3/uL (0.0-0.1); Basophils Percent Auto 0.8 % (0.2-2.0); Eosinophils Absolute Auto 0.2 10^3/uL (0.0-0.7); Eosinophils Percent Auto 2.4 % (0.9-7.0); Hematocrit 45.5 % (42.0-54.0); Hemoglobin 15.2 g/dL (14.0-18.0); Immature Granulocytes Abs Auto 0.05 10^3/uL (0.00-0.03); Immature Granulocytes Pct Auto 0.6 % (0.0-0.5); Lymphocytes Absolute Auto 2.4 10^3/uL (1.2-3.8); Lymphocytes Percent Auto 27.2 % (20.5-60.0); Mean Corpuscular HGB Conc 33.4 g/dL (29.9-35.2); Mean Corpuscular Hemoglobin 31.9 pg (25.9-34.0); Mean Corpuscular Volume 95.4 fL (80.0-94.0); Mean Platelet Volume 10.7 fL (9.5-13.5); Neutrophils Absolute Auto 5.1 10^3/uL (1.4-6.5); Platelet Count 181 10^3/uL (150-450); Red Blood Count 4.77 10^6/uL (4.70-6.10); Red Cell Distribution Width 11.9 % (11.0-15.0); White Blood Count 8.8 10^3/uL (4.0-11.0)
[2024-01-09 08:20] LABS: Estimated Average Glucose 114 mg/dL; Glycohemoglobin A1C 5.6 % (4.5-6.2)
[2024-01-09 08:36] LABS: Alanine Aminotransferase 50 U/L (16-63); Albumin Globulin Ratio 0.9; Albumin Level 3.4 g/dL (3.4-5.0); Alkaline Phosphatase 74 U/L (46-116); Anion Gap 11.3; Aspartate Amino Transferase 26 U/L (15-37); BUN Creatinine Ratio 19.6; Bilirubin Total 0.8 mg/dL (0.2-1.0); Calcium 8.6 mg/dL (8.5-10.1); Chloride 104 mmol/L (98-107); Chol HDL Ratio 2.1; Cholesterol 165 mg/dL (<=200); Estimated GFR (African America >60 (>=60 mL/min/1.73m^2); Estimated GFR (Non-African Ame >60 (>=60 mL/min/1.73m^2); Globulin 3.7 g/dL; Glucose 104 mg/dL (74-106); HDL Cholesterol 77 mg/dL (40-60); Potassium 4.3 mmol/L (3.5-5.1); Sodium 141 mmol/L (136-145); Total Protein 7.1 g/dL (6.4-8.2); Triglycerides 70 mg/dL (<=150)
== END 2024-01-09 07:33 | disposition home or self-care (01) ==
LOC: LAB 07:34
DX: Z00.00 Encounter for general adult medical examination without abnormal findings (principal)
CPT/HCPCS: 36415; 80053; 80061; 83036; 84443; 85025